=== PATIENT | male | born 1975 | race Caucasian/White ===

== ENCOUNTER 2016-05-26 15:25 | Inpatient (IN) | payer OTHER, MEDICARE ==
[~2016-05-26] VITALS: Ht 170.2 cm; Wt 104.9 kg
[~2016-05-26 15:25] MED LIST: ADDERALL 20 MG20 MG PO; ADDERALL20 MG PO; ALPRAZOLAM2 M2 PO; ALPRAZOLAM2 MG PO; AMOXICILLIN500 M3 PO; BACTRIM DS TAB1 EACH PO; CHLORPROMAZINE50 M2 PO; CYMBALTA 30 MG30 MG PO; DEXTROAMP-AMPHE20 MG PO; GABAPENTIN400 M2 PO; METHADONE10 MG/5 M2 PO; MOBIC15 M1 PO; NEXIUM40 M1 PO; QUETIAPINE FUM100 M1 PO; QUETIAPINE FUMA50 M1 PO; SEROQUEL XR150 M1 PO; SEROQUEL XR150 MG PO; SERTRALINE HCL100 MG PO; VISTARIL25 M1 PO; XANAX0.25 M1 PO; XANAX1 M1 PO; XANAX2 MG PO; ZOFRAN4 M2 PO; ZOLOFT 100 MG100 MG PO; ZOLOFT100 M1 PO; ZOLOFT100 MG PO
--- NOTE | 2016-05-26 15:30 | NUR ---
PT BIBA FOR +SI, STATES HE "NEEDS TO BE SAFE". PT TEARFUL DURING INTERVIEW. PT DENIES HI. PT REPORTS RECENT D/C FROM [facility] AND THAT HE HAS BEEN ON THE SAME MEDS FOR 5 YEARS.
--- NOTE | 2016-05-26 15:31 | NUR ---
SECURITY AT BEDSIDE FOR WANDING, PT CHANGED INTO BLUE SCRUBS.
--- NOTE | 2016-05-26 15:42 | NUR ---
PT'S FRIEND - CATRACHITO JAIN - [phone]
--- NOTE | 2016-05-26 15:58 | ED PSY CRISIS COLLATERAL NOTE ---
Collateral Note Collateral Note Family/Inform/Valentine Contacts: Spoke with Belen from [facility], who indicated that they were sending him to hospital as he had expressed suicidal ideation and stated that he wanted to go out and use. Patient appears to be very impaired at present, although tox screen has not been done yet. Patient had been in-patient at [facility] one month ago, and then was at [facility]. Patient stated to Dr Shearer, when interviewed, that "I just want to be somewhere safe, because I'm afraid of what I might do". According to Belen at [facility], patient verbalized multiple suicide plans. He is extremely upset that his has been cheating, and he caught her with some alysia in their bed. Meanwhile DCF is involved, and the 2 children who are ages 5 and 9, are staying with the grandmother at this time. Patient reports he is on list for [facility]. Patient has not had very much contact with [facility] over past few years, so they have no current information on patient with regard to treatment, other than being aware of his hospitalizations. He is on a longterm diversion program. Belen reports that they saw him as high risk, and sent him on PEER to [facility].
--- NOTE | 2016-05-26 16:04 | ED PSYCHIATRIC COMPLAINT ---
See Addendum History of Present Illness General Chief Complaint: Psychiatric Related Complaint Stated Complaint: +SI Source: patient, old records, EMS Exam Limitations: no limitations Vital Signs & Intake/Output Vital Signs & Intake/Output Vital Signs Date Time Temp Pulse Resp B/P Pulse O2 O2 Flow FiO2 Ox Delivery Rate 05/28 0616 96.5 70 18 114/73 92 Room Air 05/28 0320 96.3 75 16 103/76 96 05/28 0114 97.3 79 18 112/69 96 05/27 2259 96.1 79 20 104/60 95 Room Air 05/27 2012 96.3 69 16 112/60 96 Room Air 05/27 1833 96.7 46 16 120/75 97 Room Air 05/27 1559 98.4 61 16 115/56 94 Room Air 05/27 1333 97.8 60 126/81 96 05/27 0821 98.5 40 128/70 100 Allergies Coded Allergies: haloperidol (From HALDOL) (Mild, HIVES 07/10/15) shellfish derived (Mild, HIVES - SEAFOOD HIVES 07/21/15) latex (03/24/16) UPON ADMISSION 03/22/16, PT SAID HE HAD LATEX ALLERGY. TODAY PT SAID "I DON'T KNOW. MAYBE." Triage Nurses Notes Reviewed? yes Onset: Abrupt Duration: day(s): (1) Timing: single episode today Severity: severe Associated Symptoms: anxiety, suicidal ideation HPI: This is a 41-year-old male with history of polysubstance abuse who arrives to the ER for chief complaint of suicidal ideation. He states while he was in [place] receiving treatment for suicidal ideation that his was unfaithful to him and lost care of their kids to [facility]. He states that he has tried multiple times in the past before and wants to do so again. After finding this out he used heroin and cocaine last night. States that he wants to . Recent treatment at [facility] and previously at [facility] all within the past 1 month. (JOSE ENRIQUE JONES,MASHA) Reconcile Medications Alprazolam 2 MG TABLET 1 TAB PO TID ANXIETY (Reported) Alprazolam 0.25 MG TABLET 1 TAB PO TIDPRN ANXIETY (Reported) Chlorpromazine HCl 50 MG TABLET 1 CAP PO BID MENTAL HEALTH (Reported) Dextroamphetamine/Amphetamine (Dextroamp-Amphetamin 20 MG Tab) 20 MG TABLET 1 TAB PO BID MENTAL HEALTH (Reported) Esomeprazole (Nexium) 40 MG CAPSULE.DR 1 CAP PO DAILY GI (Reported) Gabapentin 400 MG CAPSULE 1 CAP PO TID MENTAL HEALTH (Reported) Hydroxyzine Pamoate (Vistaril) 25 MG CAPSULE 1 CAP PO BID ANXIETY (Reported) Hydroxyzine Pamoate (Vistaril) 25 MG CAPSULE 2 CAP PO QPM ANXIETY (Reported) Methadone HCl 10 MG/5 ML SOLUTION 100 MG PO DAILY MENTAL HEALTH (Reported) Quetiapine Fumarate 100 MG TABLET 1 TAB PO BID MENTAL HEALTH (Reported) Quetiapine Fumarate (Seroquel XR) 150 MG TAB.ER.24H 1 TAB PO QPM MENTAL HEALTH (Reported) Sertraline HCl 100 MG TABLET 1.5 TAB PO DAILY MENTAL HEALTH (Reported) (HENRY JONES,RIVAS Veronica) Past History Medical History Any Pertinent Medical History? 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 No (JOSE ENRIQUE JONES,MASHA) Review of Systems Review of Systems Constitutional: Denies: chills, fever. EENTM: Reports: no symptoms. Respiratory: Denies: cough, short of breath, sputum production. Cardiovascular: Denies: chest pain. GI: Denies: abdominal pain. Genitourinary: Reports: no symptoms. Musculoskeletal: Reports: no symptoms. Skin: Reports: no symptoms. Neurological/Psychological: Reports: anxiety, depressed. Hematologic/Endocrine: Denies: bruising, bleeding, polyuria, polydipsia. Immunologic/Allergic: Denies: splenectomy. All Other Systems: Reviewed and Negative (JOSE ENRIQUE JONES,MASHA) Physical Exam Physical Exam General Appearance: well developed/nourished, alert, awake, mild distress Head: atraumatic Eyes: Bilateral: PERRL, EOMI. Ears, Nose, Throat: normal pharynx, normal ENT inspection, hearing grossly normal Neck: normal inspection, supple Respiratory: normal breath sounds Cardiovascular: regular rate/rhythm Gastrointestinal: soft, non-tender Extremities: normal range of motion Neurological/Psychiatric: awake, alert, anxious, depressed affect Appearance/Memory/Insight: disheveled, impaired insight Behavoir/Eye Contact/Speech: avoids eye contact, cooperative, decreased rate of speech Thoughts/Hallucinations: no apparent hallucination Skin: intact, normal color, warm/dry SAD PERSONS SAD PERSONS Response Value Male Sex? yes 1 Depression/Hopelessness? yes 2 Previous Attempts/Psych Care yes 1 Excessive Ethanol/Drug Use? yes 1 Rational Thinking Loss? yes 2 Single//? yes 1 Organized/Serious Attempt yes 2 Social Support? has no support 1 Stated Future Intent? yes 2 Total 13 SAD PERSONS Done? yes (JOSE ENRIQUE JONES,MASHA) Progress Differential Diagnosis: DEPRESSION, ANXIETY, SUICIDAL IDEATION, POLYSUBSTANCE ABUSE Plan of Care: Orders Procedure Date/time Status Regular Diet 05/28 B Active Continuous Observation Monitor 05/28 0800 Active Continuous Observation Monitor 05/28 0400 Active Continuous Observation Monitor 05/28 0000 Active Continuous Observation Monitor 05/27 1609 Active Continuous Observation Monitor 05/27 1230 Active EKG 05/27 0844 Active Add-on Test (ER Only) 05/27 0841 Active Continuous Observation Monitor 05/27 0700 Active TROPONIN LEVEL 05/26 1625 Complete MAGNESIUM 05/26 1625 Complete Sitter order, crisis consult, check labs, alcohol and urine toxicology. (JOSE ENRIQUE JONES,MASHA) Hand-Off Endorsed To: RIVAS FIGUEROA MD Endorsed Time: 192 (MASHA QUISPE MD) Hand-Off Endorsed To: DUGLAS TABARES MD Endorsed Time: 07 Pending: consult (RIVAS FIGUEROA MD) Diagnostic Imaging: Discussed w/RAD: Ultrasound. Radiology Impression: PATIENT: ANEL CRUZ PRESENT AGE: 41 PATIENT ACCOUNT NO: [id number] : 75 LOCATION: [facility] ORDERING PHYSICIAN: DUGLAS TABARES MD SERVICE DATE: 05/27/16-1021 EXAM TYPE: CARD - ECHOCARDIOGRAM ANEL CRUZ Age: 41 : 1975 Gender: M Exam Date: 05/27/2016 15:22 Exam Location: ER Ht (in): 67 Wt (lb): 246 BSA: 2.35 BP: 126 / 81 Ordering Physician: DUGLAS TABARES MD Referring Physician: DUGLAS TABARES MD Technologist: Obdulia Dennis RDCS Room Number: ER#[id number] Indications: ARRHYTHMIAS Rhythm: Sinus Technical Quality: Good FINDINGS Left Ventricle Normal size left ventricle. Mild to moderate concentric left ventricular hypertrophy. Normal left ventricular ejection fraction visually estimated at >65%. No obvious regional wall motion abnormalities. Abnormal relaxation filling pattern of the left ventricle for age (stage 1 diastolic dysfunction). Right Ventricle The right ventricle is normal in size and function. Right Atrium The right atrium is normal in size. Left Atrium The left atrium is normal in size. The interatrial septum is intact. Mitral Valve The mitral valve is normal in structure and function. There is mild mitral regurgitation. Aortic Valve Structurally normal aortic valve without significant sclerosis or stenosis. There is no aortic regurgitation. Tricuspid Valve The tricuspid valve is normal in structure and function. There is trace tricuspid regurgitation. Pulmonary artery systolic pressure is normal. Pulmonic Valve Structurally normal pulmonic valve. There is trace pulmonic regurgitation. Pericardium Normal pericardium without effusion. No pleural effusion. Great Vessels Normal aortic root dimension. The aortic arch and great vessels are well seen and are normal. CONCLUSIONS Mild to moderate concentric left ventricular hypertrophy. Normal left ventricular ejection fraction visually estimated at > 65%. Abnormal relaxation filling pattern of the left ventricle for age (stage 1 diastolic dysfunction). The left atrium is normal in size. No significant valve abnormalities. Physiologic valvular regurgitation. No significant change since the prior study of. 10/30/2015 Greyson Mccall M.D. (Electronically Signed) Final Date: 27 May 2016 18:25 MEASUREMENTS (Male / Female) Normal Values 2D ECHO LV Diastolic Diameter PLAX 4.2 cm 4.2 - 5.9 / 3.9 - 5.3 cm LV Systolic Diameter PLAX 2.5 cm 2.1 - 4.0 cm LV Fractional Shortening PLAX 40.5 % 25 - 46 % LV Ejection Fraction 2D Teich 71.6 % IVS Diastolic Thickness 1.3 cm LVPW Diastolic Thickness 1.3 cm LV Relative Wall Thickness 0.6 RV Internal Dim ED PLAX 3.1 cm 1.9 - 3.8 cm LVOT Diameter 2.2 cm Aortic Root Diameter 3.1 cm LA Systolic Diameter LX 3.4 cm 3.0 - 4.0 / 2.7 - 3.8 cm LA Volume 39.0 cm 18 - 58 / 22 - 52 cm Ascending Aorta Diameter 3.2 cm DOPPLER AV Peak Velocity 169.0 cm/s AV Peak Gradient 11.4 mmHg AV Mean Velocity 120.0 cm/ s AV Mean Gradient 7.0 mmHg AV Velocity Time Integral 34.3 cm LVOT Peak Velocity 146.0 cm/s LVOT Peak Gradient 8.5 mmHg LVOT Mean Velocity 106.0 cm/s LVOT Mean Gradient 5.0 mmHg LVOT Velocity Time Integral 32.7 cm LVOT Stroke Volume 124.3 cm AV Area Cont Eq vti 3.6 cm AV Area Cont Eq pk 3.3 cm MV Peak Velocity 90.9 cm/s MV Peak Gradient 3.3 mmHg MV Mean Velocity 54.3 cm/s MV Mean Gradient 1.0 mmHg Mitral E Point Velocity 73.1 cm/s Mitral A Point Velocity 74.0 cm/s Mitral E to A Ratio 1.0 MV PHT Velocity 96.4 cm/s MV Deceleration Hayes 295.0 cm/ s MV Pressure Half Time 98.0 ms MV Area PHT 2.2 cm MV Deceleration Time 343.0 ms TR Peak Velocity 135.0 cm/s TR Peak Gradient 7.3 mmHg Right Atrial Pressure 5.0 mmHg Pulmonary Artery Systolic Pressu 12.3 mmHg Right Ventricular Systolic Press 12.3 mmHg PV Peak Velocity 128.0 cm/s PV Peak Gradient 6.6 mmHg PV Mean Velocity 85.3 cm/s PV Mean Gradient 3.0 mmHg PV Velocity Time Integral 29.7 cm LV E' Lateral Velocity 12.2 cm/s Mitral E to LV E' Lateral Ratio 6.0 LV E' Septal Velocity 6.3 cm/s Mitral E to LV E' Septal Ratio 11.5 DICTATED BY: GREYSON MCCALL MD, V. 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 <Electronically signed in Other Vendor System> SIGNED BY: GREYSON MCCALL MD, V. 05/27/161825 Initial ED EKG: NSR, rate (65), INTERMITTENT VENT BIGEMINY Comments: 05/27/2016 8:41:59 AM patient signed out to me by Dr. Figueroa at shift assembler for puller over machine. Patient presents for psychiatric evaluation secondary to suicide ideation and polysubstance use. He was just moved into room 12 because of the concern of a low heart rate (in the 40s). I have just reevaluated Anel and he states he is feeling much better after a dose of methadone and Xanax. His heart rate is in the mid 60s with frequent PVCs. I have just discussed his case with Dr. Adams recommends checking a magnesium level and a troponin. If either of these is abnormal echocardiogram would be appropriate. 05/28/2016 7:16:09 AM patient signed out to me by Dr. Mandujano. (RAYSHAWN JONES,DUGLAS Montalvo) Hand-Off Endorsed To: DUGLAS TABARES MD Endorsed Time: 0700 Pending: other (bed search) (JEROME MANDUJANO MD) Departure Departure Disposition: STILL A PATIENT Condition: Stable Referrals: PATIENT HAS NO PRIMARY CARE DR (PCP/Family) Departure Forms: Customer Survey General Discharge Information (JOSE ENRIQUE JONES,MASHA) Departure Clinical Impression Primary Impression: Polysubstance abuse Secondary Impressions: Major depression Qualifiers: Major depression recurrence: recurrent Active/Remission status: currently active Major depression episode severity: unspecified Qualified Code: F33.9 - Major depressive disorder, recurrent, unspecified Suicidal ideation (JEROME MANDUJANO MD)
--- NOTE | 2016-05-26 16:35 | NUR ---
LABS DRAWN AND SENT BY THIS [facility] ([facility]) URINE SPECIMEN OBTAINED AND TRIO SENT TO LAB
[2016-05-26 17:35] LABS: ABSOLUTE BASOPHIL COUNT 0 /CUMM (0.0-0.2); ABSOLUTE EOSINOPHIL COUNT 0 /CUMM (0.0-0.7); ABSOLUTE GRANULOCYTE CT 4.3 /CUMM (1.4-6.5); ABSOLUTE LYMPH COUNT 1.4 /CUMM (1.2-3.4); ABSOLUTE MONOCYTE COUNT 0.4 /CUMM (0.10-0.60); BASOPHIL % 0.4 % (0.0-2.0); EOSINOPHIL % 0.5 % (0-5); GRANULOCYTE % 70.2 % (42.2-75.2); HEMATOCRIT 42.5 % (42-52); MEAN CORPUSCULAR HGB 30.1 PG (27.0-31.0); MEAN CORPUSCULAR HGB CONC 33.6 G/DL (33.0-37.0); MEAN CORPUSCULAR VOLUME 89.7 FL (80.0-94.0); MEAN PLATELET VOLUME 9.3 FL (7.4-10.4); PLATELET COUNT 229 /CUMM (130-400); RBC DISTRIBUTION WIDTH 13.2 % (11.5-14.5); RED BLOOD CELL CT 4.74 /CUMM (4.70-6.10); WHITE BLOOD CELL COUNT 6.2 /CUMM (4.8-10.8)
--- NOTE | 2016-05-26 17:40 | NUR ---
PT LYING ON BED IN DARK. PT TEARFUL ON APPROACH.
--- NOTE | 2016-05-26 18:41 | NUR ---
PT REQUESTING XANAX FOR ANXIETY. PT LYING ON BED IN DARK, TEARFUL UPON TALKING. SITTER AT DOOR
--- NOTE | 2016-05-26 20:30 | NUR ---
PT REPORTS ANXIETY AND REQUESTING XANAX AT THIS TIME. PT SLIGHTLY AGITATED AND STATED THAT "NO DOCTOR HAS SEEN HIM YET". REASSURED PT THAT HE WAS SEEN BY MD. VELIZ AT DOOR
--- NOTE | 2016-05-26 22:04 | NUR ---
Pt presenting as agitated. Positive Tox Screen. Crisis will evaluate pt in morning when substance levels are less elevated.
[2016-05-26] MEDS ORDERED: SEROQUEL XR150 M1 PO (22:29)
[2016-05-26] MEDS ORDERED: ALPRAZOLAM0.25 M1 PO (22:29)
--- NOTE | 2016-05-26 22:45 | NUR ---
PT SLEEPING IN DARK ROOM. RESPIRATIONS EVEN AND UNLABORED. SITTER AT DOOR FOR SAFETY
--- NOTE | 2016-05-27 00:22 | NUR ---
PT SLEEPING AT THIS TIME, BILATERAL CHEST RISE AND FALL NOTED, NO DISTRESS. SITTER AT BEDSIDE FOR SAFETY.
--- NOTE | 2016-05-27 00:26 | NUR ---
PT SCORED 0 ON CIWA, PER PT "HE WONT GET BAD UNTIL THE MORNING"
--- NOTE | 2016-05-27 00:28 | NUR ---
PER PT IN NOTE FORM, "IF A SHAINA CRUZ CALLS FOR ROOM 15, PT SAYS SHE WILL SAY SHE IS HIS , PT DOES NOT WANT HER TO KNOW HE IS HERE AND HE DOES NOT WANT TO SPEAK TO HER"
--- NOTE | 2016-05-27 02:30 | NUR ---
ASSUMED CARE FROM FLORA LOPEZ
--- NOTE | 2016-05-27 02:48 | NUR ---
PT SLEEPING. RESP UNLABORED. NO APPRENT DISTRESS. SITTER AT BEDSIDE
--- NOTE | 2016-05-27 04:15 | NUR ---
PT FEELING ANXIOUS. PT STATES THAT HE CANT TAKE TH ANXIETY ANYMORE. MD FIGUEROA AWARE. PT MEDICATED WITH ATARAX PER ORDER.
--- NOTE | 2016-05-27 07:16 | NUR ---
ASSUMED CARE OF PT WHO IS AWAKE WITH BREAKFAST TRAY AT BEDSIDE. PT STATES "I CAN'T EAT BECAUSE I'M IN FULL WITHDRAWL"
--- NOTE | 2016-05-27 07:19 | NUR ---
SITTER REMAINS AT BEDSIDE. WILL CTM
--- NOTE | 2016-05-27 07:35 | NUR ---
DR TABARES MADE AWARE OF PT C/O WITHDRAWL
--- NOTE | 2016-05-27 07:52 | NUR ---
PT MEDICATED WITH 60 MG METHADONE PO AND 1 MG XANAX PO
--- NOTE | 2016-05-27 08:15 | NUR ---
PT MOVED TO RM 12, HR FOUND TO BE 40. DR TABARES AND CHARGE NURSE CHRISTIANO VALDOVINOS.
--- NOTE | 2016-05-27 08:16 | NUR ---
MOVED PT TO ROOM 12 VIA WHEELCHAIR, "PT BECAME VERY AGITATED, STATED I WAS LIDIA I WAS A WOMAN, AND THAT I BETTER CALL SECURITY"
--- NOTE | 2016-05-27 08:21 | NUR ---
DR TABARES AT BEDSIDE
--- NOTE | 2016-05-27 08:34 | NUR ---
PT STATES HE WANTS TO GO HOME AND BACK TO HIS WORSHIP. PT AWARE THAT HE IS WAITING FOR CRISIS EVALUATION
--- NOTE | 2016-05-27 08:49 | NUR ---
CRISIS AT BEDSIDE FOR EVALUATION
--- NOTE | 2016-05-27 09:21 | ED PSYCH CRISIS CONSULTATION ---
See Addendum Crisis Consult Basic Assessment Date of Consult: 05/27/16 Insurance Authorization: Insurance #1: Insurance name: MEDICARE A Phone number: Policy number: [id number] Group number: Authorization number: ED Provider: Patient's ED Provider: MASHA QUISPE MD Primary Care Physician: Patient's PCP: PATIENT HAS NO PRIMARY CARE DR PCP's Phone Number: Current Psychiatrist: The patient currently goes to [facility], however states he has not seen . Chief Complaint: Psychiatric Related Complaint Patient's Quote: " All the things that used to be, are all different now." Present Illness: The patient is a 41 year old, male, presenting to the ED, on an [facility] Emergency transportation Certificate, after expressing suicidal ideations with multiple plans. The patient presents as alert, oriented and disheveled with labile mood and became tearful, multiple times during the evaluation. The patient has a long history of mental health and substance abuse issues. The patient is well known to [facility] and has had multiple admissions to [facility]. The patient reports that he was recently discharged from inpatient at [facility] and came home to find that DCF had taken his children. The children will be staying with his mother and he is very angry at his for losing their children. He notes that he was having homicidal thoughts to harm her, however notes that he would "never, ever," act on those thoughts. He states that she has been spending time with "a wealthy man in [place]," and he plans to file for divorce. He states that he was so upset by this news, that he became suicidal, noting that he has multiple plans. He denies any current hallucinations, however per [facility] Certificate he does have a history of auditory hallucinations. He has been on disability for about 15 years and states that he has plenty of places that he can stay. He is currently in treatment with [facility] in [place] ([phone]), receiving Methadone Maintenance (60mg- confirmed via phone this AM). He does report also abusing alcohol, Cocaine and Heroin. He has not been in any consistent outpatient mental health treatment and was waiting to see the psychiatrist at [facility]. The patient reports his symptoms as follows; depression, anxiety, feeling helpless, feeing hopeless, difficultly sleeping, decreased appetite, decreased motivation and decreased concentration. He continues to feel suicidal , however states that he feels safe while at [facility]. He would like to be admitted to [facility]. Patient's Address: [address] [place] [address] [place] [address] Other Phone Number: Who Do You Live With? Patient/Self Family/Informants Interviewed: Collateral obtained from [facility], please see seperate collateral note. Allergies - Coded Allergies: haloperidol (From HALDOL) (Mild, HIVES 07/10/15) shellfish derived (Mild, HIVES - SEAFOOD HIVES 07/21/15) latex (03/24/16) UPON ADMISSION 03/22/16, PT SAID HE HAD LATEX ALLERGY. TODAY PT SAID "I DON'T KNOW. MAYBE." Current Medications - Scheduled Medications Alprazolam 2 MG TABLET 1 TAB PO TID ANXIETY (Reported) Entered as Reported by NADIYA APODACA on 11/06/15 1254 Alprazolam 0.25 MG TABLET 1 TAB PO TIDPRN ANXIETY #28 (Reported) Entered as Reported by STANTON AGUIRRE on 05/26/16 2229 Chlorpromazine HCl 50 MG TABLET 1 CAP PO BID MENTAL HEALTH #60 (Reported) Entered as Reported by KETAN SHAH on 03/22/16 0825 Dextroamphetamine/Amphetamine (Dextroamp-Amphetamin 20 MG Tab) 20 MG TABLET 1 TAB PO BID MENTAL HEALTH #56 (Reported) Entered as Reported by KETAN SHAH on 12/30/15 1119 Esomeprazole (Nexium) 40 MG CAPSULE.DR 1 CAP PO DAILY GI #28 (Reported) Entered as Reported by KETAN SHAH on 12/30/15 1119 Gabapentin 400 MG CAPSULE 1 CAP PO TID MENTAL HEALTH #90 (Reported) Entered as Reported by KETAN SHAH on 03/22/16 0827 Hydroxyzine Pamoate (Vistaril) 25 MG CAPSULE 1 CAP PO BID ANXIETY (Reported) Entered as Reported by NORY MENDOZA on 04/01/16 1729 Hydroxyzine Pamoate (Vistaril) 25 MG CAPSULE 2 CAP PO QPM ANXIETY (Reported) Entered as Reported by NORY MENDOZA on 04/01/16 1729 Methadone HCl 10 MG/5 ML SOLUTION 100 MG PO DAILY MENTAL HEALTH (Reported) Entered as Reported by NORY MENDOZA on 07/21/15 1553 Quetiapine Fumarate 100 MG TABLET 1 TAB PO BID MENTAL HEALTH #28 (Reported) Entered as Reported by NORY MENDOZA on 04/01/16 1718 Quetiapine Fumarate (Seroquel XR) 150 MG TAB.ER.24H 1 TAB PO QPM MENTAL HEALTH #28 (Reported) Entered as Reported by STANTON AGUIRRE on 05/26/16 2229 Sertraline HCl 100 MG TABLET 1.5 TAB PO DAILY MENTAL HEALTH #28 (Reported) Entered as Reported by NORY MENDOZA on 04/01/16 1721 Laboratory Results: Laboratory Tests 05/26/16 1625: Serum Alcohol < 10.0 05/26/16 1625: Anion Gap 16, Estimated GFR > 60, BUN/Creatinine Ratio 17.1, Glucose 110 H, Calcium 9.6, Magnesium 1.9, Total Bilirubin 0.9, AST 35, ALT 42, Alkaline Phosphatase 71, Troponin I < 0.01, Total Protein 8.7 H, Albumin 4.8, Globulin 3.9, Albumin/Globulin Ratio 1.2, CBC w Diff NO MAN DIFF REQ, RBC 4.74, MCV 89.7, MCH 30.1, RDW 13.2, MPV 9.3, Gran % 70.2, Lymphocytes % 22.8, Monocytes % 6.1, Eosinophils % 0.5, Basophils % 0.4, Absolute Granulocytes 4.3, Absolute Lymphocytes 1.4, Absolute Monocytes 0.4, Absolute Eosinophils 0, Absolute Basophils 0, PUBS MCHC 33.6, Urine Opiates Screen > 4000.00 H, Methadone Screen > 735 H, Barbiturate Screen < 60, Ur Phencyclidine Scrn < 6.00, Amphetamines Screen 285, U Benzodiazepines Scrn > 800 H, Urine Cocaine Screen > 1000 H, Urine Cannabis Screen < 5.00 Past History Past Medical History Neurological: NONE EENT: NONE Cardiovascular: NONE Respiratory: NONE Gastrointestinal: GERD Hepatic: hepatitis C Renal: NONE Musculoskeletal: NONE Psychiatric: alcohol dependence, anxiety, bipolar disease, depression, IV drug abuse, opioid dependence, substance abuse Endocrine: NONE Blood Disorders: NONE Cancer(s): NONE 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 Physical Limitations (Interventions): None identified. Psychiatric Treatment History Psych Treatment Psychiatric Treatment Yes Inpatient Treatment Yes Outpatient Treatment Yes Location of Treatment [facility] (10+ times), [facility]- and multiple others Reason for Treatment Depression, +SI and polysubstance abuse. Dates of Treatment Recently discharged from [facility] in May 2016 and currently at [facility] Response to Treatment The patient has not been able to maintain stability for long periods of time. Diagnosis by History: Unspecified Depression, R/O Unspecified Bipolar D/O Anxiolytic Use D/O Stimulant Use D/O Opioid Use D/O Alcohol Use D/O Substance Use/Abuse History Drug Use/Abuse 1 Substances Used/Abused Yes Substance Used/Abused Cocaine First Use 16 years old Last Used Unclear- the patient does not remember using it. How much used/taken The patient states that he does not know How often Pt. reports that he does not actively use Cocaine, "it may be in Heroin." For how long Unknown Route of use unclear Drug Use/Abuse 2 Substances Used/Abused Yes Substance Used/Abused Heroin First Use 18 years old Last Used 2 days ago How much used/taken "As much as I can." Noting that he may use 10 bags at a time. How often Unclear For how long Unclear Route of use Unclear Drug Use/Abuse 3 Substances Used/Abused Yes Substance Used/Abused Alcohol First Use 7 years old Last Used 2 days ago How much used/taken "As much as possible." How often The patient reports that he has been using more lately. For how long Unclear Route of use Oral Substance Abuse Treatment Substance Abuse Treatment Past Substance Abuse [place] Yes Inpatient Treatment Yes Outpatient Treatment Yes Location of Treatment [facility], [facility], [facility], [facility] and other places. Reason for Treatment Polysusbtance abuse Dates of Treatment Current with [facility] for Methadone Maintenance Response to Treatment The patient has not been able to maintain sobriety. He does report that he is not abusing Methadone or his Benzodiazepines at this time. Comments: Per records there was a question as to whether or not he was abusing Benzodiazepines in the past. Current Mental Status Mental Status Orientation: Person, Place, Situation Affect: Anxious, Hopeless, Labile Speech: WNL Neuro-vegetative: Anhedonia, Appetite Decreased, Energy Decreased, Helpless, Sleep Disturbance, Decreased concentration Appearance Appearance- Dress/Hygiene: The patient was sitting in bed, wearing hospital attire, disheveled and tearful at times Behaviors Thought Process: WNL Thought Content: The patient denies any current hallucinations, however per [facility] Emergency Certificate the patient does have a history of having hallucinations. Memory: WNL Insight: Fair SI/HI Risk Assessment Past Suicidal Ideation/Attempts Yes Current Suicidal Ideation/Att Yes Past Homicidal Ideation/Att: No Current Homicidal Ideation/Attempts Yes Degree of Intent: The patient reports that he is currently feeling suicidal, noting that he has multiple plans of how he would do it., The patient denies any history of homicidal ideations, however notes that he was very upset with his about DCF taking their children. He did note that he was having thoughts to hurt her, however states, " I would never, ever act on them." He states that he plans to get a divorce from her. Danger To: Others, Self Gravely Disabled: Poor Impulse Control, Poor Judgment Risk Factors: high anxiety/distress, history of suicide atmpts, SA/MH hospitalized, substance abuse, poor impulse control, male, limited support Lethality Ratin PTSD Checklist PTSD Score: PTSD Score: Response Value Disturbing memories,thoughts,images of stressful experience? Extremely 5 Disturbing dreams of stressful experience from past? Extremely 5 Suddenly acting/feeling as if reliving stressful experience? Extremely 5 Unpleasant feeling when reminded of stressful experience? Extremely 5 Physical reactions when reminded of stressful experience? Extremely 5 Avoid thinking/talking of stressful exp. to avoid reactions? Extremely 5 Avoid activities/situations that remind of stressful exp.? Extremely 5 Trouble remembering important parts of stressful experience? Extremely 5 Loss of interest in things that you used to enjoy? Extremely 5 Feeling as if your future will somehow be cut short? Moderately 3 Trouble falling or staying asleep? Extremely 5 Feeling irritable or having angry outbursts? Not at all 1 Having difficulty concentrating? Extremely 5 Being super alert or watchful on guard? Extremely 5 Feeling jumpy or easily startled? Extremely 5 Total 69 ED Management Sitter: Yes Restraints: No DSM5/PS Stressors/Medical Prob Diagnosis' (DSM 5, Stressors, Medical): F32.9 Unspecified Depressive Disorder, F10.20 Alcohol Use Disorder, F11.20 Opioid Use Disorder, F14.20 Stimulant Use Disorder, Cocaine type. Medical: Pt. denies any medical issues Stressors: Marital Issues, children recently removed by DCF, Chronic mental health and substance abuse issues. Current GAF: 25 Comments: N/A Departure Disposition Psych Medical Clearance Date: 05/27/16 Medically Cleared at: 0700 Time Started: 0700 Time Ended: 0800 Psychiatrist Consulted: Yan Hill MD Date Disposition Established: 05/27/16 Time Disposition Established: 1099 Plan for Disposition - Modality: Bed Search Facility: To be determined Contact: N/A Telephone: N/A Rationale for Disposition: The patient presents with increased symptoms of depression, suicidal and homicidal ideations. He presents as anxious, irritable and requesting to be admitted to [facility]. The patient has been abusing multiple substances and has multiple stressors at this time. The case was discussed with Dr. Hill and he finds the patient to be an acute risk to self and in need of an inpatient hospitalization at this time. There are currently no beds available on [facility] and therefore a bed search will be started. Type of IP Admission: PEC (PEC if transferred) Additional Instructions: N/A Referrals PATIENT HAS NO PRIMARY CARE DR (PCP/Family)
--- NOTE | 2016-05-27 10:15 | NUR ---
PT'S AD TRAFFICKER IS AT BEDSIDE
--- NOTE | 2016-05-27 10:59 | NUR ---
PT REQUESTING TUMS
--- NOTE | 2016-05-27 11:36 | NUR ---
PT STATES HE NEEDS HIS DAILY MEDS. DR TABARES MADE AWARE
--- NOTE | 2016-05-27 13:13 | NUR ---
PT MEDICATED PER EMAR.
--- NOTE | 2016-05-27 14:04 | NUR ---
The patient was evaluated by Crisis and it was determined that he requires an inpatient psychiatric admission. SW spoke to Dr. Ross and he notes that the patient requires further medical clearance at this time. There are no beds available on [facility] and therefore, once the patient is medically cleared a bed search will be started.
--- NOTE | 2016-05-27 15:08 | NUR ---
CRISIS AT BEDSIDE.
--- NOTE | 2016-05-27 15:19 | NUR ---
ECHO AT BEDSIDE.
--- NOTE | 2016-05-27 16:13 | NUR ---
PT MEDICATED WITH 1MG XANAX PO.
--- NOTE | 2016-05-27 18:22 | NUR ---
DIETARY CALLED FOR FOOD TRAY.
--- NOTE | 2016-05-27 18:26 | ECHOCARDIOGRAM REPORT ---
ANEL CRUZ Age: 41 : 1975 Gender: M Exam Date: 05/27/2016 15:22 Exam Location: ER Ht (in): 67 Wt (lb): 246 BSA: 2.35 BP: 126 / 81 Ordering Physician: DUGLAS TABARES MD Referring Physician: DUGLAS TABARES MD Technologist: Obdulia Dennis RDCS Room Number: ER#12 Indications: ARRHYTHMIAS Rhythm: Sinus Technical Quality: Good FINDINGS Left Ventricle Normal size left ventricle. Mild to moderate concentric left ventricular hypertrophy. Normal left ventricular ejection fraction visually estimated at >65%. No obvious regional wall motion abnormalities. Abnormal relaxation filling pattern of the left ventricle for age (stage 1 diastolic dysfunction). Right Ventricle The right ventricle is normal in size and function. Right Atrium The right atrium is normal in size. Left Atrium The left atrium is normal in size. The interatrial septum is intact. Mitral Valve The mitral valve is normal in structure and function. There is mild mitral regurgitation. Aortic Valve Structurally normal aortic valve without significant sclerosis or stenosis. There is no aortic regurgitation. Tricuspid Valve The tricuspid valve is normal in structure and function. There is trace tricuspid regurgitation. Pulmonary artery systolic pressure is normal. Pulmonic Valve Structurally normal pulmonic valve. There is trace pulmonic regurgitation. Pericardium Normal pericardium without effusion. No pleural effusion. Great Vessels Normal aortic root dimension. The aortic arch and great vessels are well seen and are normal. CONCLUSIONS Mild to moderate concentric left ventricular hypertrophy. Normal left ventricular ejection fraction visually estimated at > 65%. Abnormal relaxation filling pattern of the left ventricle for age (stage 1 diastolic dysfunction). The left atrium is normal in size. No significant valve abnormalities. Physiologic valvular regurgitation. No significant change since the prior study of. 10/30/2015 Terrance Mccall M.D. (Electronically Signed) Final Date: 27 May 2016 18:25 MEASUREMENTS (Male / Female) Normal Values 2D ECHO LV Diastolic Diameter PLAX 4.2 cm 4.2 - 5.9 / 3.9 - 5.3 cm LV Systolic Diameter PLAX 2.5 cm 2.1 - 4.0 cm LV Fractional Shortening PLAX 40.5 % 25 - 46 % LV Ejection Fraction 2D Teich 71.6 % IVS Diastolic Thickness 1.3 cm LVPW Diastolic Thickness 1.3 cm LV Relative Wall Thickness 0.6 RV Internal Dim ED PLAX 3.1 cm 1.9 - 3.8 cm LVOT Diameter 2.2 cm Aortic Root Diameter 3.1 cm LA Systolic Diameter LX 3.4 cm 3.0 - 4.0 / 2.7 - 3.8 cm LA Volume 39.0 cm 18 - 58 / 22 - 52 cm Ascending Aorta Diameter 3.2 cm DOPPLER AV Peak Velocity 169.0 cm/s AV Peak Gradient 11.4 mmHg AV Mean Velocity 120.0 cm/s AV Mean Gradient 7.0 mmHg AV Velocity Time Integral 34.3 cm LVOT Peak Velocity 146.0 cm/s LVOT Peak Gradient 8.5 mmHg LVOT Mean Velocity 106.0 cm/s LVOT Mean Gradient 5.0 mmHg LVOT Velocity Time Integral 32.7 cm LVOT Stroke Volume 124.3 cm AV Area Cont Eq vti 3.6 cm AV Area Cont Eq pk 3.3 cm MV Peak Velocity 90.9 cm/s MV Peak Gradient 3.3 mmHg MV Mean Velocity 54.3 cm/s MV Mean Gradient 1.0 mmHg Mitral E Point Velocity 73.1 cm/s Mitral A Point Velocity 74.0 cm/s Mitral E to A Ratio 1.0 MV PHT Velocity 96.4 cm/s MV Deceleration Smith 295.0 cm/s MV Pressure Half Time 98.0 ms MV Area PHT 2.2 cm MV Deceleration Time 343.0 ms TR Peak Velocity 135.0 cm/s TR Peak Gradient 7.3 mmHg Right Atrial Pressure 5.0 mmHg Pulmonary Artery Systolic Pressu 12.3 mmHg Right Ventricular Systolic Press 12.3 mmHg PV Peak Velocity 128.0 cm/s PV Peak Gradient 6.6 mmHg PV Mean Velocity 85.3 cm/s PV Mean Gradient 3.0 mmHg PV Velocity Time Integral 29.7 cm LV E' Lateral Velocity 12.2 cm/s Mitral E to LV E' Lateral Ratio 6.0 LV E' Septal Velocity 6.3 cm/s Mitral E to LV E' Septal Ratio 11.5
--- NOTE | 2016-05-27 18:49 | NUR ---
FOOD TRAY DELIVERED.
--- NOTE | 2016-05-27 19:19 | NUR ---
REPORT GIVEN TO JESSICA VALDEZ.
--- NOTE | 2016-05-27 19:48 | NUR ---
ASSUMED CARE FROM JEROMY LOPEZ.
--- NOTE | 2016-05-27 19:49 | NUR ---
PT SLEEPING. EASILY AROUSED TO VERBAL STIMULTION. RESP UNLABORED. NSR ON THE MONITOR. NO APPARENT DISTRESS. SITTER AT BEDSIDE
--- NOTE | 2016-05-27 22:06 | NUR ---
Pt has been medically cleared. Pt informed by crisis that a bed search will resume.
[2016-05-28] VITALS (7 sets, daily range): BP systolic 85–124; BP diastolic 50–70
--- NOTE | 2016-05-28 01:16 | NUR ---
PT SLEEPING. RESP UNLABORED. SKIN WARM AND DRY. NO APPARENT DISTRESS. SITTER AT BEDSIDE/
--- NOTE | 2016-05-28 03:30 | NUR ---
PT APPEARS COMFORTBALE. RESP UNLABORED. NO APPARENT DISTESS. SITTER AT BEDSIDE
--- NOTE | 2016-05-28 06:14 | NUR ---
PT SLEEPING. RESP UNLABORED. NO APPARENT DISTRESS. SITTER AT BEDSIDE.
--- NOTE | 2016-05-28 06:48 | NUR ---
ASSUMED CARE AT THIS TIME , PT NOTED TO BE SLEEPING WITH REGULAR RESP RATE NOTED OF 16. OPENS EYES TO VERBAL STIMULI , OFFERS NO COMPLAINTS
--- NOTE | 2016-05-28 07:25 | NUR ---
PT REQUESTING HIS AM MEDS, PT AWARE THAT THEY ARE DUE AT 10 AM , PT UP TO BATHROOM AT THIS TIME, HR 76 ON PORTABLE O2 MONITOR
--- NOTE | 2016-05-28 07:50 | NUR ---
PT ALERT AND ORIENTED CALM AND COPERATIVE AT THIS TIME, MEDICATED WITH AM METHADONE 60 MG PO PER ORDER
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
--- NOTE | 2016-05-28 08:56 | NUR ---
PAULINE met with the patient for reassessment and discussed the case with Dr. Hill, who finds the patient to be an acute risk to self and in need of an inpatient hospitalization. There are pending discharges on [facility] and the patient will be admitted to the unit when a bed is available.
--- NOTE | 2016-05-28 09:28 | NUR ---
PHARMACY CALLED FOR MEDS
--- NOTE | 2016-05-28 09:47 | NUR ---
PT MEDICATED PER ORDER
--- NOTE | 2016-05-28 11:07 | NUR ---
PT CURRENTLY EATING LUNCH, APPEARS IN NAD. SITTER REMAINS AT [facility].
--- NOTE | 2016-05-28 12:01 | NUR ---
PT BEING ADMITTED TO [facility]
--- NOTE | 2016-05-28 12:12 | NUR ---
REPORT TO ANITA
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
--- NOTE | 2016-05-28 15:48 | History & Physical ---
General Information and HPI MD Statement: I have seen and personally examined ANEL CRUZ and documented this H&P. The patient is a 41 year old M who presented with a patient stated chief complaint of suicidal ideation Source of Information: patient Exam Limitations: no limitations History of Present Illness: 41-year-old male with the past medical history significant for anxiety, depression, alcohol use, suicidal ideation who presented with complaint of suicidal ideation. Patient has admitted to Inpatient Psychiatry in the past. He had recently in a residential facility and then he went home reportedly he found that DCF had taken the children and now they're living with his . He also had some homicidal thoughts but then again mentioned to the psychiatric provider that he would never act on those. He had many plans for the suicidal ideation that he had. He was also having some hallucinations. Upon mind reviewing patient was not very cooperative and did not answer most of the questions in detail. Just said yes or no to a lot of questions. He currently denies any aches or pains, he still feels very depressed. In the emergency room his EKG was abnormal but the follow-up echo showed stage I diastolic dysfunction. Allergies/Medications Allergies: Coded Allergies: haloperidol (From HALDOL) (Mild, HIVES 07/10/15) shellfish derived (Mild, HIVES - SEAFOOD HIVES 07/21/15) latex (03/24/16) UPON ADMISSION 03/22/16, PT SAID HE HAD LATEX ALLERGY. TODAY PT SAID "I DON'T KNOW. MAYBE." Home Med list Alprazolam 2 MG TABLET 1 TAB PO TID ANXIETY (Reported) Alprazolam 0.25 MG TABLET 1 TAB PO TIDPRN ANXIETY (Reported) Chlorpromazine HCl 50 MG TABLET 1 CAP PO BID MENTAL HEALTH (Reported) Dextroamphetamine/Amphetamine (Dextroamp-Amphetamin 20 MG Tab) 20 MG TABLET 1 TAB PO BID MENTAL HEALTH (Reported) Esomeprazole (Nexium) 40 MG CAPSULE.DR 1 CAP PO DAILY GI (Reported) Gabapentin 400 MG CAPSULE 1 CAP PO TID MENTAL HEALTH (Reported) Hydroxyzine Pamoate (Vistaril) 25 MG CAPSULE 1 CAP PO BID ANXIETY (Reported) Hydroxyzine Pamoate (Vistaril) 25 MG CAPSULE 2 CAP PO QPM ANXIETY (Reported) Methadone HCl 10 MG/5 ML SOLUTION 100 MG PO DAILY MENTAL HEALTH (Reported) Quetiapine Fumarate 100 MG TABLET 1 TAB PO BID MENTAL HEALTH (Reported) Quetiapine Fumarate (Seroquel XR) 150 MG TAB.ER.24H 1 TAB PO QPM MENTAL HEALTH (Reported) Sertraline HCl 100 MG TABLET 1.5 TAB PO DAILY MENTAL HEALTH (Reported) Past History Travel History Traveled to [place] past 21 day No Medical History Neurological: NONE EENT: NONE Cardiovascular: NONE Respiratory: NONE Gastrointestinal: GERD Hepatic: hepatitis C Renal: NONE Musculoskeletal: NONE Psychiatric: alcohol dependence, anxiety, bipolar disease, depression, IV drug abuse, opioid dependence, substance abuse Endocrine: NONE Blood Disorders: NONE Cancer(s): NONE VOCATIONAL NURSE/Reproductive: NONE ( ) History of MRSA: Yes History of VRE: No History of CDIFF: No Isolation History: Standard Surgical History Surgical History: non-contributory Past Family/Social History Family History Relations & Conditions if any Family history was reviewed; no changes noted. Psychosocial History Where do you live? Home Services at Home: None ETOH Use: denies use Functional Ability IADLs Independent: shopping, housework, food prep. Employment History Employment Disability Profession/Employer The patient states that he has not worked in 15 years. Review of Systems Review of Systems Constitutional: Reports: see HPI. EENTM: Reports: see HPI. Cardiovascular: Reports: see HPI. Respiratory: Reports: see HPI. GI: Reports: see HPI. Genitourinary: Reports: see HPI. Musculoskeletal: Reports: see HPI. Skin: Reports: see HPI. Neurological/Psychological: Reports: see HPI. Exam & Diagnostic Data Last 24 Hrs of Vital Signs/I&O Vital Signs Date Time Temp Pulse Resp B/P Pulse O2 O2 Flow FiO2 Ox Delivery Rate 05/28 1401 97.1 64 116/64 05/28 1206 96.9 72 16 114/68 95 Room Air 05/28 0936 94.5 54 18 90/53 94 Room Air 05/28 0616 96.5 70 18 114/73 92 Room Air 05/28 0320 96.3 75 16 103/76 96 05/28 0114 97.3 79 18 112/69 96 05/27 2259 96.1 79 20 104/60 95 Room Air 05/27 2012 96.3 69 16 112/60 96 Room Air 05/27 1833 96.7 46 16 120/75 97 Room Air 05/27 1559 98.4 61 16 115/56 94 Room Air Physical Exam General Appearance Alert, Oriented X3, No Acute Distress Skin some erythema eczema looking rash on face HEENT PERRLA Neck Supple Cardiovascular Regular Rate, Normal S1, Normal S2 Lungs Clear to Auscultation Abdomen Normal Bowel Sounds, Soft, No Tenderness Neurological Cranial Nerves II through XII: intact Extremities No Edema Last 24 Hrs of Labs/Goldy: Laboratory Tests 05/26 05/26 05/26 1625 1625 1537 Chemistry Sodium (137 - 145 mmol/L) 142 Potassium (3.5 - 5.1 mmol/L) 4.0 Chloride (98 - 107 mmol/L) 101 Carbon Dioxide (22 - 30 mmol/L) 25 Anion Gap (5 - 16) 16 BUN (9 - 20 mg/dL) 12 Creatinine (0.7 - 1.2 mg/dL) 0.7 Estimated GFR (>60 ml/min) > 60 BUN/Creatinine Ratio (7 - 25 %) 17.1 Glucose (65 - 99 mg/dL) 110 H Hemoglobin A1c Pending Calcium (8.4 - 10.2 mg/dL) 9.6 Magnesium (1.6 - 2.3 mg/dL) 1.9 Total Bilirubin (0.2 - 1.3 mg/dL) 0.9 AST (17 - 59 U/L) 35 ALT (21 - 72 U/L) 42 Alkaline Phosphatase (< 127 U/L) 71 Troponin I (<0.11 ng/ml) < 0.01 Total Protein (6.3 - 8.2 g/dL) 8.7 H Albumin (3.5 - 5.0 g/dL) 4.8 Globulin (1.9 - 4.2 gm/dL) 3.9 Albumin/Globulin Ratio (1.1 - 2.2 %) 1.2 TSH (0.270 - 4.200 uIU/mL) 1.090 Hematology CBC w Diff NO MAN DIFF REQ WBC (4.8 - 10.8 /CUMM) 6.2 RBC (4.70 - 6.10 /CUMM) 4.74 Hgb (14.0 - 18.0 G/DL) 14.3 Hct (42 - 52 %) 42.5 MCV (80.0 - 94.0 FL) 89.7 MCH (27.0 - 31.0 PG) 30.1 RDW (11.5 - 14.5 %) 13.2 Plt Count (130 - 400 /CUMM) 229 MPV (7.4 - 10.4 FL) 9.3 Gran % (42.2 - 75.2 %) 70.2 Lymphocytes % (20.5 - 51.1 %) 22.8 Monocytes % (1.7 - 9.3 %) 6.1 Eosinophils % (0 - 5 %) 0.5 Basophils % (0.0 - 2.0 %) 0.4 Absolute Granulocytes (1.4 - 6.5 /CUMM) 4.3 Absolute Lymphocytes (1.2 - 3.4 /CUMM) 1.4 Absolute Monocytes (0.10 - 0.60 /CUMM) 0.4 Absolute Eosinophils (0.0 - 0.7 /CUMM) 0 Absolute Basophils (0.0 - 0.2 /CUMM) 0 PUBS MCHC (33.0 - 37.0 G/DL) 33.6 Toxicology Urine Opiates Screen (>2000 NG/ML) > 4000.00 H Methadone Screen (>300 NG/ML) > 735 H Barbiturate Screen (>200 NG/ML) < 60 Ur Phencyclidine Scrn (>25 NG/ML) < 6.00 Amphetamines Screen (>1000 NG/ML) 285 U Benzodiazepines Scrn (>200 NG/ML) > 800 H Urine Cocaine Screen (>300 NG/ML) > 1000 H Urine Cannabis Screen (>50 NG/ML) < 5.00 Serum Alcohol (<10 MG/DL) < 10.0 Diagnostic Data EKG Results Normal QTC, sinus rhythm with multiple PVCs and diffuse T-wave inversions. Assessment/Plan Assessment: 41-year-old male with past medical history significant for anxiety, depression, suicidal ideation who is admitted to Inpatient Psychiatry with suicidal ideation with any plans. He was also drinking alcohol and using cocaine. His EKG is also abnormal. Electrolytes were normal. Echocardiogram results reviewed and shows stage I diastolic dysfunction. Please consult cardiology. Patient was started on Ativan protocol and CIWA protocol. He is also started on multivitamin, folate and thiamine. His methadone and other psych medications have been resumed. He is also started on nicotine patch. His first troponin was negative. Patient currently has no chest pain therefore I would hold off on any further troponin check. Will follow cardiac recommendations. For the psych management up to psychiatry. As Ranked By This Provider Problem List: 1. Anxiety 2. Major depression Qualifiers Major depression recurrence: recurrent Active/Remission status: currently active Major depression episode severity: unspecified Qualified Code: F33.9 - Major depressive disorder, recurrent, unspecified 3. Suicidal ideation 4. ETOH abuse Miscellaneous Miscellaneous Documentation Attending Case Discussed With: May Russell Primary Care Physician: [facility] Patient sees these Specialists [facility] Level of Patient Care: JOSEPH Garcia
--- NOTE | 2016-05-28 22:21 | NUR ---
PT IS VISIBLE ON UNIT, SOCIAL WITH PEERS AND STAFF. ATTENDED WRAO UP AND PARTICIPATED. COOPERATIVE AND COMPLIANT. NO COMPLAINTS OR SI REPORTED. PT HAS A STABLE MOOD AND FULL RANGE AFFECT.
[2016-05-29] VITALS (9 sets, daily range): BP systolic 110–140; BP diastolic 55–79
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
--- NOTE | 2016-05-29 13:19 | NUR ---
PT STATED HIS GOAL TODAY WAS TO STAY CALM. HE IS ON THE PHONE A LOT AND ATTENDED ONE GROUP. HE STATES HE PLANS TO GO [facility] FOLLOWING DETOX. HE DENIED ANY THOUGHTS OF SUICIDE AT THIS TIME
--- NOTE | 2016-05-29 21:35 | NUR ---
PTIN BED FOR MOST OF SHIFT. OOB FOR VITALS, DINNER, AND MEDS. WHEN IN COMMUNITY PT MAINLY ON PHONE. PT HAD ONE OUTBURST ON PHONE, WAS WARNED IF HE HAD ANOTHER OUTBURST HE WOULD LOOSE PHONE PRIVELAGES. PT PREOCCUPIED WITH PROBLEMS HAPPENING OUTSIDE OF THE HOSPITAL. PT IS STABLE WITH A FLAT AFFECT.
--- NOTE | 2016-05-29 22:19 | NUR ---
PT EXPRESSED PASSIVE SI DURING 1600 VITALS. STATES HE DOES NOT HAVE A PLAN AND WILL NOT ACT HERE IN THE HOSPITAL.
[2016-05-30] VITALS (9 sets, daily range): BP systolic 111–138; BP diastolic 64–79
--- NOTE | 2016-05-30 07:09 | NUR ---
PATIENT SLEPT MOST OF NIGHT IN BETWEEN CIWA ASSESSMENTS.
--- NOTE | 2016-05-30 11:29 | CP SOUTH PROGRESS NOTE PSYCH ---
Psych (Inpt) Progress Note Progress Note Include the following elements, when applicable: Involvement in the active treatment of the patient with behavioral observations of the patient and the patient's response to the treatment. Review of the ongoing treatment process in the context of the treatment plan. Indication of how multi-disciplinary staff members are carrying out the treatment plan. Plans for future interventions and recommendations for revision of the treatment plan. Liaison with other physicians/providers. Progress Note: This morning nodding off when he is meeting with me, stated that he rocks to self soothe as a coping skill. Explained to him that shortly after he gets his medication he usually becomes somnolent like this, that he does not appear anxious and his vitals have not been unstable; despite this somewhat irritable stating we are trying to kill him with lowering his bz. Also explained to me that he usually takes adderall which balances his sleepiness out in the community. Attempted to explain to him and educate him about the cycle of stimulation/sedation that he continues to be in which deregulate his mood. Didn t want to be woken up during the night for CIWA so agreed to maintain only while awake. MSE: middle aged man, overweight, poor grooming and hygiene. Psychomotor slowing , nodding to sleep during conversation. Irritable mildly but significantly less so than previously. No movement d/o noted. No eye contact, eyes closed for much of the eval. Affect constricted. Thought process concrete. Preoccupied w/ increasing the frequency and dose of his medication. No evidence acutely of thoughts to harm self/others. No evidence of internal preoccupation or voices. Thought content w/o evidence of any gross delusions. Insight impaired, judgment poor. A: 41 y/o man w. hx depressive sx, opioid, alcohol, bz use d/o, antisocial personality traits vs. disorder, presented irritated, s/p recent drug relapse after drug program; depressed over significant stressors (children taken away by [facility]); little insight to impact of drug use to his mental health. P: continued to educate him regarding medical risk of overusing bz with his concomittant alcohol, opiate and bz use in the community and risk of sz from withdrawal and in the community. No changes to bz taper; has been somewhat sedated during the day time and no indication of acute distress from withdrawal and vitals are continuing to be monitored w/ CIWA scale.
--- NOTE | 2016-05-30 13:36 | NUR ---
PT IS COMPLIANT AND COOPERATIVE. MOOD IS STABLE WITH A CONSTRICTED AFFECT. PT IS IRRITABLE AT TIMES- NOTED TO BE USING FOUL LANGUAGE AND MAKING INAPPROPRIATE STATEMENTS. DIFFICULT TO REDIRECT. PT DENIES SI AT THIS TIME, NO COMPLAINTS OFFERED. NO S/S OF DETOX NOTED, NO SCORING ON CIWA. PT IS PRESENT IN THE COMMUNITY AND INTERACTING WITH PEERS AND STAFF. PT ATTENDED ONE GROUP TODAY. VITALS ARE STABLE, APPETITE IS GOOD.
--- NOTE | 2016-05-30 20:34 | NUR ---
Pt is irritable towards the staff always med seeking. vital signs are stable appetite is good. Behavioral issues noted during the day. Will continue to monitor the pt behavior overnight.
[2016-05-31] VITALS (8 sets, daily range): BP systolic 117–131; BP diastolic 55–91
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
--- NOTE | 2016-05-31 13:25 | NUR ---
PT IS OUT IN COMMUNITY INTERACTING WITH STAFF AND PEERS. AT TIMES PT'S BEHAVIOR IS AN ISSUE AND NEEDS REDIRECTION. [facility] WAS CALL FOR A DISAGREEMENT WITH THIS PT AND ANOTHER. PT IS VERY MED SEEKING. PT MOOD IS STABLE WITH A CONSTRICTED AFFECT. PT SEEMS TIRED AND WILL TALK WITH HIS EYES CLOSED. PT ATTENDS GROUPS BUT IS MOSTLY PASSIVE AND LEAVES EARLY. PT IS NOT SCORING ON CIWA ASSESSMENT AND DENIES SI THOUGHTS.
--- NOTE | 2016-05-31 13:32 | CP SOUTH PROGRESS NOTE PSYCH ---
Psych (Inpt) Progress Note Progress Note Progress Note: I discussed this patient's progress to date, current mental status, treatment process in the context of the treatment plan, and discharge planning with staff/ team in the daily morning inpatient team meeting. I also met with the patient myself in individual session. A total of 25 minutes was spent with the patient with more than 50% spent in counseling and/or coordination of care. OBJECTIVE: Current Medications Sig/Clarisa Start time Last Medication Dose Route Stop Time Status Admin Folic Acid 1 MG DAILY 05/28 1356 AC 05/31 PO 0750 Gabapentin 600 MG BID@1400,2200 05/28 1400 AC 05/30 PO 2125 Hydroxyzine HCl 25 MG Q6P PRN 05/28 1400 AC 05/31 PO 1003 Lorazepam 0.5 MG ONCE 06/02 0000 AC PO 06/02 0001 Lorazepam 0.5 MG Q6H 06/01 0000 AC PO 06/01 1801 Lorazepam 0.5 MG ONCE ONE 05/31 1800 AC PO 05/31 1801 Lorazepam 1 MG Q6H 05/31 0000 DC 05/31 PO 05/31 1201 1222 Lorazepam 1.5 MG Q12H 05/30 0600 DC 05/30 PO 05/30 1801 1734 Lorazepam 2 MG Q2P PRN 05/28 1400 AC PO Lorazepam 1 MG Q2P PRN 05/28 1400 AC PO Methadone HCl 60 MG DAILY@0800 05/29 0800 AC 05/31 PO 0752 Multivitamins 1 TAB DAILY 05/28 1356 AC 05/31 PO 0750 Nicotine 7 MG DAILY 05/28 1414 AC 05/31 TOP 0750 Omeprazole 40 MG DAILY AC 05/29 0700 AC 05/31 PO 0750 Quetiapine Fumarate 100 MG DAILY 05/29 1000 DC 05/31 PO 0750 Quetiapine Fumarate 300 MG AT BEDTIME 05/28 2200 AC 05/30 PO 2126 Sertraline HCl 150 MG DAILY 05/29 1000 AC 05/31 PO 0845 Thiamine HCl 100 MG DAILY 05/28 1356 AC 05/31 PO 0750 Vital Signs Date Time Temp Pulse Resp B/P Pulse O2 O2 Flow FiO2 Ox Delivery Rate 05/31 1240 81 117/91 05/31 1238 81 117/71 05/31 0753 96.7 68 127/79 05/31 0729 96.7 68 127/79 05/30 1949 97.7 75 130/79 05/30 1945 97.7 75 130/79 ASSESSMENT: Today I met the patient along with social media editor Ruby Plascencia LCSW. Patient was tearful during our interview, recounting his drug abuse, recent discharge from [facility], and then finding that his was with another man and his children were in DCF custody. [facility] has now placed the children with the patient's mother, which he states is safe and appropriate for the children. Today during our interview, the patient appears sad and oversedated, although he denies feeling sedated. He was not irritable or angry during our interview today, which seems to be a change, as per previous notes. States that he only feels well when he is taking Xanax. Depression:10/10; Anxiety:8/10 (with 10 the worst.) Denies suicidal ideation, homicidal ideation, paranoid ideation. He states that he "hears some voices." He also reports seeing a recurrent visual hallucination of a box and some tools which he is working with, and then all of a sudden they "just disappear." Speech is well articulated, goal-directed, average in rate, volume and tone. Reports sleeping approximate 5 hours every night, states his appetite is low. The patient understands the risks/benefits/side effects of the medication and is agreeable to continue taking them. PLAN: Discontinue daytime Seroquel, as the patient appears to be overly sedated. Continue with current management as patient is improving. Continue to provide support and encouragement.
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
[2016-06-01] VITALS (8 sets, daily range): BP systolic 123–146; BP diastolic 64–82
--- NOTE | 2016-06-01 05:36 | NUR ---
SLEPT WELL NO ISSUES.
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
--- NOTE | 2016-06-01 13:23 | NUR ---
PT IS OUT IN COMMUNITY INTERACTING AT TIMES WITH STAFF AND PEERS. PT CAN BE IRRITABLE AT TIMES WITH MEDICATION AND WITH SETTING LIMITS. PT IS ON THE PHONE CONSENTLY AND NEEDS TO BE REMINDED IT IS A GROUP PHONE. PT IS ACTIVE IN SOME GROUPS BUT LEAVES EARLY AND DOESN'T PARTIPACTE MUCH. PT DENIES SI THOUGHTS.
--- NOTE | 2016-06-01 13:49 | NUR ---
has been going to groups. continues to self advocate for additional benzos. interacts with peers and staff. denies thoughts of self harm when asked. mood is stable, full range of affect.
--- NOTE | 2016-06-01 18:48 | Cons- Cardiology ---
General Information and HPI Consulting Request Date of Consult: 06/01/16 Requested By: TORRI MUNIZ MD Reason for Consult: Frequent ventricular ectopy. Source of Information: patient, old records Exam Limitations: poor historian History of Present Illness: Mr. Ciro Ashton is a 41-year-old male with a history of bipolar disorder, posttraumatic stress disorder, panic attacks, attention deficit hyperactivity disorder, depression, sleep disorder, drug and alcohol abuse, and gastroesophageal reflux disease who was admitted to the inpatient psychiatric unit with suicidal ideation and who was found to have frequent ventricular ectopy while being evaluated in the ED. He denies any history of coronary, valvular, dysrhythmic/conduction disease, or cardiomyopathy. He also denies any history of hypertension, dyslipidemia, diabetes mellitus, or strong family history for premature coronary artery disease. He does admit to tobacco use and states that for the past couple of years he has only smoked about 6 cigarettes daily. He did for several years smoke at least a pack of tobacco a day. Allergies/Medications Allergies: Coded Allergies: haloperidol (From HALDOL) (Mild, HIVES 07/10/15) shellfish derived (Mild, HIVES - SEAFOOD HIVES 07/21/15) latex (03/24/16) UPON ADMISSION 03/22/16, PT SAID HE HAD LATEX ALLERGY. TODAY PT SAID "I DON'T KNOW. MAYBE." Home Med List: Alprazolam 2 MG TABLET 1 TAB PO TID ANXIETY (Reported) Alprazolam 0.25 MG TABLET 1 TAB PO TIDPRN ANXIETY (Reported) Chlorpromazine HCl 50 MG TABLET 1 CAP PO BID MENTAL HEALTH (Reported) Dextroamphetamine/Amphetamine (Dextroamp-Amphetamin 20 MG Tab) 20 MG TABLET 1 TAB PO BID MENTAL HEALTH (Reported) Esomeprazole (Nexium) 40 MG CAPSULE.DR 1 CAP PO DAILY GI (Reported) Gabapentin 400 MG CAPSULE 1 CAP PO TID MENTAL HEALTH (Reported) Hydroxyzine Pamoate (Vistaril) 25 MG CAPSULE 1 CAP PO BID ANXIETY (Reported) Hydroxyzine Pamoate (Vistaril) 25 MG CAPSULE 2 CAP PO QPM ANXIETY (Reported) Methadone HCl 10 MG/5 ML SOLUTION 100 MG PO DAILY MENTAL HEALTH (Reported) Quetiapine Fumarate 100 MG TABLET 1 TAB PO BID MENTAL HEALTH (Reported) Quetiapine Fumarate (Seroquel XR) 150 MG TAB.ER.24H 1 TAB PO QPM MENTAL HEALTH (Reported) Sertraline HCl 100 MG TABLET 1.5 TAB PO DAILY MENTAL HEALTH (Reported) Review of Systems Review of Systems: A 14 point system review was obtained and was noncontributory, other than as above. 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 Home Services at Home: None ETOH Use: denies use Functional Ability IADLs Independent: shopping, housework, food prep. Employment History Employment: Disability Profession/Employer The patient states that he has not worked in 15 years. Exam & Diagnostic Data Vital Signs and I&O Vital Signs Date Time Temp Pulse Resp B/P Pulse O2 O2 Flow FiO2 Ox Delivery Rate 06/01 1630 82 131/64 06/01 1617 82 131/64 06/01 1224 72 146/82 06/01 1200 72 146/82 06/01 0741 96.7 63 135/76 06/01 0739 96.7 63 135/76 05/31 1953 97.9 76 122/55 05/31 1950 97.9 76 122/55 Physical Exam: Well-developed, overweight middle-aged male in no acute distress. Vital signs: See above. HEENT: Normocephalic, atraumatic, EOMI, moist mucous membranes. Neck: No JVD, no bruits. Lungs: Clear to auscultation bilaterally. Heart: S1, S2 with no murmur, gallop, or rub appreciated. PMI fifth ICS at [facility]. Abdomen: Soft, nontender, positive bowel sounds. Extremities: No edema. Pulses: Symmetrical and intact. Assessment/Plan Assessment/Plan Mr. Ashton is a middle-aged male with multiple psychiatric issues along with drug and alcohol abuse who was admitted to the inpatient psychiatric unit with suicidal ideation and who was discovered to have frequent ventricular ectopy on electrocardiographic monitoring while in the ED. His most recent electrocardiogram was performed on 05/27/2016 and revealed sinus rhythm with frequent ventricular premature contractions, borderline left axis deviation, minor nondiagnostic inferior T-wave abnormalities, late precordial transition, and high lateral Q waves. On reviewing previous tracings dating back to as far as 11/22/2008 he has never had evidence of ventricular ectopy before. He did previously have small Q waves in the high lateral leads that are a little more pronounced on his most recent tracing. An echocardiogram was performed on 05/27/2016 that revealed a normal-sized left ventricle, mild to moderate concentric left ventricular hypertrophy, no obvious regional wall motion abnormalities, and normal systolic function with an estimated ejection fraction of greater than 65%, a right ventricle was of normal size and function, normal size atria, normal appearing valves, no pericardial effusion, and a normal size aortic root. The Doppler portion of the study revealed mild mitral, trace tricuspid, trace pulmonic regurgitation, and a delayed relaxation left ventricular inflow pattern system with stage I diastolic dysfunction. Ventricular ectopy can occur in structurally normal, as well as, structurally abnormal hearts and in a variety of clinical situations. While they can occur as a result of stress, drugs, alcohol, etc. they can also occur as a result of certain electrolyte abnormalities. They can also occur as a result of structural cardiac abnormalities including ischemic and nonischemic cardiomyopathies, hypertrophic cardiomyopathy, ischemia , myocardial scarring, etc. At this juncture, it would be reasonable to obtain some blood work on Mr. Ashton to include potassium, magnesium levels, a glycosylated hemoglobin A1c level, thyroid function testing with a free T4 and TSH, fasting lipid panel high sensitivity C-reactive protein level, etc. An imaging stress test would also be reasonable to help exclude any underlying ischemia which can be performed on an outpatient basis. We will plan to follow up with Mr. Ashton on an outpatient basis to review his blood work, stress test, etc. and make further recommendations as indicated. Thank you. Consult Acknowledgment - Thank you for your consult request. Consult Acknowledgment - Thank you for your consult request.
--- NOTE | 2016-06-01 19:35 | CP SOUTH PROGRESS NOTE PSYCH ---
Psych (Inpt) Progress Note Progress Note Progress Note: I discussed this patient's progress to date, current mental status, treatment process in the context of the treatment plan, and discharge planning with staff/ team in the daily morning inpatient team meeting. I also met with the patient myself in individual session. A total of 25 minutes was spent with the patient with more than 50% spent in counseling and/or coordination of care. SUBJECTIVE: "Everytime I come off the Xanax I get into a sh*t storm." OBJECTIVE: Current Medications Sig/Clarisa Start time Last Medication Dose Route Stop Time Status Admin Diphenhydramine HCl 50 MG ONCE ONE 05/31 2144 DC 05/31 PO 05/31 214 2147 Folic Acid 1 MG DAILY 05/28 1356 AC 06/01 PO 0755 Gabapentin 600 MG BID@1400,2200 05/28 1400 AC 06/01 PO 1332 Hydroxyzine HCl 25 MG Q6P PRN 05/28 1400 AC 06/01 PO 1755 Lorazepam 0.5 MG ONCE 06/02 0000 AC PO 06/02 0001 Lorazepam 0.5 MG Q6H 06/01 0000 DC 06/01 PO 06/01 1801 1754 Lorazepam 2 MG Q2P PRN 05/28 1400 AC PO Lorazepam 1 MG Q2P PRN 05/28 1400 AC PO Methadone HCl 60 MG DAILY@0800 05/29 0800 AC 06/01 PO 0754 Multivitamins 1 TAB DAILY 05/28 1356 AC 06/01 PO 0754 Nicotine 7 MG DAILY 05/28 1414 AC 06/01 TOP 0755 Omeprazole 40 MG DAILY AC 05/29 0700 AC 06/01 PO 0726 Prazosin HCl 1 MG AT BEDTIME 06/01 2200 AC PO Quetiapine Fumarate 25 MG Q4 HRS NEEDED PRN 06/01 1130 AC 06/01 PO 1332 Quetiapine Fumarate 300 MG AT BEDTIME 05/28 2200 AC 05/31 PO 2146 Sertraline HCl 150 MG DAILY 05/29 1000 AC 06/01 PO 0754 Thiamine HCl 100 MG DAILY 05/28 1356 AC 06/01 PO 0754 Vital Signs Date Time Temp Pulse Resp B/P Pulse O2 O2 Flow FiO2 Ox Delivery Rate 06/01 1630 82 131/64 06/01 1617 82 131/64 06/01 1224 72 146/82 06/01 1200 72 146/82 06/01 0741 96.7 63 135/76 06/01 0739 96.7 63 135/76 05/31 1952 97.9 76 122/55 05/31 1949 97.9 76 122/55 ASSESSMENT: Today the patient continues to be insistent that he is needs Xanax. I explained (again), that we could not prescribe Xanax/benzodiazapines while he is taking Methadone, and our plan will be to safely taper him down and off of benzodiazapines. He is very upset about this. States he can get a prescription for Xanax from his methadone clinic. He did not appear sedated in the morning, as he did yesterday. He was noted to be sleeping in a chair in the patient lounge this afternoon. Patient has a three-day paper ending tomorrow. States Gabapentin is helpful for anxiety. Continues to c/o "racing thoughts." States he continues to have hallucinations of a "box that he is working on, and then it disappears." Depression: ; Anxiety: (with 10 the worst.) Reports intermittent suicidal ideation, "I get all kinds of ideas, but I won't do anything." He contracts for safety. States and also believes that he will not kill himself. Denies auditory hallucinations, paranoid ideation. He reports sleeping well, with nightmares. His appetite is "not so good." Speech is well articulated, goal-directed, average in rate, volume and tone. The patient understands the risks/benefits/side effects of the medication and is agreeable to continue taking them. PLAN: Add Seroquel 25mg prn for continuing anxiety and racing thoughts. Prazosin at bedtime for nightmares. Continue with other current management as patient is improving. Continue to provide support and encouragement.
[2016-06-01 21:20] LABS: ABSOLUTE BASOPHIL COUNT 0 /CUMM (0.0-0.2); ABSOLUTE EOSINOPHIL COUNT 0.2 /CUMM (0.0-0.7); ABSOLUTE GRANULOCYTE CT 4.2 /CUMM (1.4-6.5); ABSOLUTE LYMPH COUNT 2.6 /CUMM (1.2-3.4); ABSOLUTE MONOCYTE COUNT 0.6 /CUMM (0.10-0.60); BASOPHIL % 0.3 % (0.0-2.0); EOSINOPHIL % 2.5 % (0-5); GRANULOCYTE % 54.8 % (42.2-75.2); HEMATOCRIT 39.3 % (42-52); MEAN CORPUSCULAR HGB 29.9 PG (27.0-31.0); MEAN CORPUSCULAR HGB CONC 33.1 G/DL (33.0-37.0); MEAN CORPUSCULAR VOLUME 90.4 FL (80.0-94.0); MEAN PLATELET VOLUME 9.2 FL (7.4-10.4); PLATELET COUNT 190 /CUMM (130-400); RBC DISTRIBUTION WIDTH 12.7 % (11.5-14.5); RED BLOOD CELL CT 4.34 /CUMM (4.70-6.10); WHITE BLOOD CELL COUNT 7.7 /CUMM (4.8-10.8)
--- NOTE | 2016-06-01 22:14 | NUR ---
PT IS STABLE WITH CONSTRICTED AFFECT. PT IS PRESENT WITHIN THE COMMUNITY AND INTERACTS WITH PEERS AND STAFF. PT IS EASILY AGITATED AND COMPLAINS OF ANXIETY AND CHEST PAIN. AN EKG AND BLOOD CULTURES WERE ORDERED AND COMPLETED. PT WAS AGGRAVATED THAT HE NEEDED TO HAVE A SECOND EKG COMPLETED AFTER HAVING ONE TODAY. REPOTED THE EKG APPEARS NORMAL AND WE ARE WAITING THE RESULTS OF THE BLOOD TESTS. PT ATTENDED WRAP UP GROUP. VS ARE STABLE AND PT DENIES ANY SI/HI.
[2016-06-02] VITALS (9 sets, daily range): BP systolic 105–132; BP diastolic 54–83
--- NOTE | 2016-06-02 00:42 | NUR ---
[address] STEPHENS PT. HR 42-48 DORINA B/P 123/67 C/O PAIN POINTING TO LEFT UPPER ABDOMINAL AREA. LABS ORDERED EKG ORDERED. HR UP WITH EKG @81. LABS RESULTED WNL EKG DONE NO CHANGE FROM PREVIOUS DR. STEPHENS REPORTED TO THIS RN. WILL MONITOR THROUGHOUT SHIFT AND REPORT ANY ABNORMAL SIGNS AND SYMPTOMS.
--- NOTE | 2016-06-02 00:42 | Event Note ---
Event Note Event Note: RN reported that patient was having upper abdominal discomfort, but no nausea, vomiting, diaphoresis or chest pain. EKG showed SR with ventricular bigeminy. EKG on admission (05/27) was SR with PVCs. Also, RN noted that patient was bradycardic to 40's, and BP was 123/67. We repeated blood work, troponin was negative and electrolytes were normal. Patient's HR improved to 80's thereafter. Dr. Adams has consulted on this patient earlier today, patient will need outpatient stress test. Pending labs for AM include TSH, free T4, HbA1c, lipid panel and HsCRP.
--- NOTE | 2016-06-02 14:44 | NUR ---
PT IS STABLE WITH CONSTRICTED AFFECT. VISIBLE WITHIN THE COMMUNITY AND INTERACTS WITH PEERS/STAFF MEMBERS. PT IS INAPPROPRIATE AT SOME POINTS AND REQUIRES REDIRECTION. PT IS CURRENTLY HYPERACTIVE AND PACING THE UNIT CLICKING A PEN. PT APPEARS IRRITABLE AND EASILY AGITATED BY STAFF MEMBERS. PT DID ATTEND GROUPS TODAY DESPITE FEELING "SO-SO". VS ARE STABLE AND PT DENIES ANY SI/HI TO THIS [facility].
--- NOTE | 2016-06-02 15:18 | CP SOUTH PROGRESS NOTE PSYCH ---
Psych (Inpt) Progress Note Progress Note Progress Note: I discussed this patient's progress to date, current mental status, treatment process in the context of the treatment plan, and discharge planning with staff/ team in the daily morning inpatient team meeting. I also met with the patient myself in individual session. A total of 15 minutes was spent with the patient with more than 50% spent in counseling and/or coordination of care. SUBJECTIVE: "I still see the boxes, but not as much. I'm building the box. It happens quickly, it scares me. My mind is always racing." OBJECTIVE: Current Medications Sig/Clarisa Start time Last Medication Dose Route Stop Time Status Admin Folic Acid 1 MG DAILY 05/28 1356 AC 06/02 PO 0842 Gabapentin 600 MG 0800,1300,0 06/02 1300 AC 06/02 PO 1226 Gabapentin 600 MG BID@1400,2200 05/28 1400 DC 06/01 PO 2155 Hydroxyzine HCl 10 MG Q6-PRN PRN 06/02 1045 AC PO Hydroxyzine HCl 25 MG Q6P PRN 05/28 1400 DC 06/02 PO 0852 Lorazepam 0.5 MG ONCE 06/02 0000 DC 06/01 PO 06/02 0001 2327 Lorazepam 0.5 MG Q6H 06/01 0000 DC 06/01 PO 06/01 1801 1754 Lorazepam 2 MG Q2P PRN 05/28 1400 AC PO Lorazepam 1 MG Q2P PRN 05/28 1400 AC PO Methadone HCl 60 MG DAILY@0800 05/29 0800 AC 06/02 PO 0852 Multivitamins 1 TAB DAILY 05/28 1356 AC 06/02 PO 0844 Nicotine 7 MG DAILY 05/28 1414 AC 06/02 TOP 0844 Omeprazole 40 MG DAILY AC 05/29 0700 AC 06/02 PO 0840 Prazosin HCl 1 MG AT BEDTIME 06/01 2200 AC 06/01 PO 2155 Quetiapine Fumarate 400 MG AT BEDTIME 06/02 2200 AC PO Quetiapine Fumarate 25 MG Q4 HRS NEEDED PRN 06/01 1130 AC 06/02 PO 1330 Quetiapine Fumarate 300 MG AT BEDTIME 05/28 2200 DC 06/01 PO 2155 Sertraline HCl 150 MG DAILY 05/29 1000 AC 06/02 PO 0844 Thiamine HCl 100 MG DAILY 05/28 1356 AC 06/02 PO 0843 Tuberculin PPD 0.1 ML ONCE ONE 06/02 0845 DC 06/02 ID 06/02 0846 0937 Laboratory Tests 06/01 2037 Chemistry Sodium (137 - 145 mmol/L) 137 Potassium (3.5 - 5.1 mmol/L) 4.6 Chloride (98 - 107 mmol/L) 99 Carbon Dioxide (22 - 30 mmol/L) 29 Anion Gap (5 - 16) 9 BUN (9 - 20 mg/dL) 22 H Creatinine (0.7 - 1.2 mg/dL) 0.8 Estimated GFR (>60 ml/min) > 60 BUN/Creatinine Ratio (7 - 25 %) 27.5 H Magnesium (1.6 - 2.3 mg/dL) 1.9 Total Bilirubin (0.2 - 1.3 mg/dL) 0.4 Direct Bilirubin (< 0.4 mg/dL) 0.4 AST (17 - 59 U/L) 30 ALT (21 - 72 U/L) 34 Alkaline Phosphatase (< 127 U/L) 67 Troponin I (<0.11 ng/ml) < 0.01 Total Protein (6.3 - 8.2 g/dL) 7.5 Albumin (3.5 - 5.0 g/dL) 4.0 Hematology CBC w Diff NO MAN DIFF REQ WBC (4.8 - 10.8 /CUMM) 7.7 RBC (4.70 - 6.10 /CUMM) 4.34 L Hgb (14.0 - 18.0 G/DL) 13.0 L Hct (42 - 52 %) 39.3 L MCV (80.0 - 94.0 FL) 90.4 MCH (27.0 - 31.0 PG) 29.9 RDW (11.5 - 14.5 %) 12.7 Plt Count (130 - 400 /CUMM) 190 MPV (7.4 - 10.4 FL) 9.2 Gran % (42.2 - 75.2 %) 54.8 Lymphocytes % (20.5 - 51.1 %) 34.2 Monocytes % (1.7 - 9.3 %) 8.2 Eosinophils % (0 - 5 %) 2.5 Basophils % (0.0 - 2.0 %) 0.3 Absolute Granulocytes (1.4 - 6.5 /CUMM) 4.2 Absolute Lymphocytes (1.2 - 3.4 /CUMM) 2.6 Absolute Monocytes (0.10 - 0.60 /CUMM) 0.6 Absolute Eosinophils (0.0 - 0.7 /CUMM) 0.2 Absolute Basophils (0.0 - 0.2 /CUMM) 0 PUBS MCHC (33.0 - 37.0 G/DL) 33.1 Vital Signs Date Time Temp Pulse Resp B/P Pulse O2 O2 Flow FiO2 Ox Delivery Rate 06/02 1230 74 127/79 06/02 1228 74 127/79 06/02 0811 95.0 79 124/83 06/02 0807 95.0 74 124/83 06/01 2155 97.6 42 16 123/67 06/01 204 81 06/01 204 81 06/01 1941 97.6 42 123/67 06/01 1938 97.6 42 123/06/01 1630 82 131/64 06/01 1617 82 131/64 ASSESSMENT: Patient was evaluated last night for abdominal discomfort by Dr. Mclain. Please refer to that note for additional information. He rescinded his three-day paper early this morning. Patient presents today as irritable, complaining of depression and anxiety "through the roof." States he continues to have suicidal thoughts, however is able to contract for safety at this time. He continues to complain of having an intermittent hallucination that he is building a box, the hallucination intermittently appears suddenly and then disappears. States that he finds this hallucination to be scary. He continues to be upset about not taking benzodiazepines, however appears to be physically tolerating this well. Depression:10/10; Anxiety:10/10 (with 10 the worst.) Denies homicidal ideation, paranoid ideation. Patient contracts for safety on this unit. States that he is of no danger of harming himself when he is in a safe environment, and believes that if he can get into a residential rehabilitation program, that he will be safe and not have suicidal thoughts. Speech is well articulated, goal-directed, average in rate, volume and tone. Sad, irritable. Alert and oriented 3. States that his sleep was okay. His appetite is "so-so." The patient understands the risks/benefits/side effects of the medication and is agreeable to continue taking them. PLAN: Increase Seroquel at bedtime for continuing racing thoughts, suicidal ideation, and hallucinations. Decrease Atarax from 25 mg 10 mg, as the patient often appears somewhat sedated. Increase gabapentin to 3 times daily for anxiety. Social Work is helping patient look for residential rehab. Continue with current management as patient is improving. Continue to provide support and encouragement.
--- NOTE | 2016-06-02 15:56 | SOCIAL WORKER PROG NOTE PSYCH ---
Social Work Progress Note Progress Note Ciro revoked his 3 day termination of voluntary status today, informing Javed Dumont APRN this morning that he felt suicidal. I received a voicemail from the admission coordinator at [facility] that she would call back to screen Ciro today and that they may have a bed. Discussed this opportunity with Ciro. Who immediately became excited about the opportunity and stated he hoped to go there. When asked about his suicidality he commented that if he were in a program he would be fine and that he hasn't had the opportunity to go to a program before. I told him I would let him know when Yamile wants to do the screening. I later discovered that there was a mistake on his face sheet and that he currently has Husky A, not Husky D which was typed on his document. Informed him of this discrepency. He was clearly disappointed and stated that he wondered if he could call insurance to see if they would change it due to not having his children right now. I gave him the number to [facility] and he called. He reported that he was able to switch his insurance and he will have Husky D effective 06/16. Encouraged him to call Malcolm Mujica today. He also filled out a release to send clinical to [facility] in [place]. Clinical faxed.
--- NOTE | 2016-06-02 23:21 | NUR ---
PT BEGAN SHIFT WITHDRAWN AND ISOLATIVE, SPENDING MOST OF THE TIME IN ROOM, SLEEPING, AWAY FROM POPULATION. PT EVENTUALLY BECAME MORE SOCIAL THE SHIFT PROGRESSED, ENTERING [place] AND SPENDING TIME INTERACTING WITH STAFF AND PEERS. PT MOOD IS STABLE, AFFECT IS EUTHYMIC, COMMUNICATION IS NORMAL, AND APPETITE IS NORMAL. PT CLAIMED SI DURING 1600 VITALS, THOUGH WHEN INQUIRED HE STATED HE DID NOT HAVE A PLAN, AND THAT HE WOULD NOT CARRY ANYTHING OUT ON THE UNIT. THE CHARGE NURSE WAS NOTIFIED OF THIS CLAIM. PT HAS BEEN COOPERATIVE WITH STAFF AND PEERS, AND COMPLIANT WITH UNIT RULES THOUGH THE REST OF THE SHIFT.
[2016-06-03] VITALS (7 sets, daily range): BP systolic 103–130; BP diastolic 55–76
--- NOTE | 2016-06-03 04:18 | NUR ---
Patient slept well, npo after midnight for labs, no issues.
--- NOTE | 2016-06-03 10:02 | SOCIAL WORKER PROG NOTE PSYCH ---
Social Work Progress Note Progress Note Spoke with [facility]azu[facility] in [place] Ciro is still on the wait list, he has been approved for placement they do not have any openings at this time, they have our contact info for Ciro and encouraged him to call weekly to show continued interest.
--- NOTE | 2016-06-03 11:20 | SOCIAL WORKER PROG NOTE PSYCH ---
Social Work Progress Note Progress Note [facility] bed, they need to make sure they have a DR on site that can provide pt with Methadone. They will retunr the call in 15 minutes. And then they will need to do a pre-screening at 2pm.
--- NOTE | 2016-06-03 12:16 | SOCIAL WORKER PROG NOTE PSYCH ---
Social Work Progress Note Progress Note Ciro was on the phone with Yamile from [facility]. I encouraged him to ask her about the insurance and if [facility]hay [facility] is accepted. He was informed that he would need to wait until 06/16 when his Husky D becomes effective. When he got off the phone he said that he would just need to wait to go there. I told him that he really couldn't remain in the hospital here until that time. He talked about "lying" to her about his suicidality in order to get into the program. He continues to say that he really doesn't "give a shit" about anything right now and if we let him go from the hospital he goes. I asked if he would be able to remain safe? He said he didn't know what would happen when he leaves here. He stated that he doesn't feel stable and says one minute he is thinking positive goals and working towards wanting his kids back and then the next minute he has crazy thoughts about wanting to end his life. He just doesn't know what he'll do if he were to leave.
--- NOTE | 2016-06-03 12:54 | CP SOUTH PROGRESS NOTE PSYCH ---
Psych (Inpt) Progress Note Progress Note Progress Note: I discussed this patient's progress to date, current mental status, treatment process in the context of the treatment plan, and discharge planning with staff/ team in the daily morning inpatient team meeting. I also met with the patient myself in individual session. A total of 15 minutes was spent with the patient with more than 50% spent in counseling and/or coordination of care. SUBJECTIVE: "I have all sorts of thoughts. I feel like it's hard to move. I feel like a slug." OBJECTIVE: Current Medications Sig/Clarisa Start time Last Medication Dose Route Stop Time Status Admin Folic Acid 1 MG DAILY 05/28 1356 AC 06/03 PO 0805 Gabapentin 600 MG 0800,1300,2200 06/02 1300 AC 06/03 PO 1207 Hydroxyzine HCl 10 MG Q6-PRN PRN 06/02 1045 AC PO Lorazepam 2 MG Q2P PRN 05/28 1400 DC PO Lorazepam 1 MG Q2P PRN 05/28 1400 DC PO Methadone HCl 60 MG DAILY@0800 05/29 0800 AC 06/03 PO 0805 Multivitamins 1 TAB DAILY 05/28 1356 AC 06/03 PO 0805 Nicotine 7 MG DAILY 05/28 1414 AC 06/03 TOP 0806 Omeprazole 40 MG DAILY AC 05/29 0700 AC 06/03 PO 0707 Prazosin HCl 1 MG AT BEDTIME 06/01 2200 AC 06/02 PO 2141 Quetiapine Fumarate 50 MG Q4 HRS NEEDED PRN 06/03 0800 AC 06/03 PO 0903 Quetiapine Fumarate 400 MG AT BEDTIME 06/02 2200 AC 06/02 PO 2141 Quetiapine Fumarate 100 MG ONCE ONE 06/02 1545 DC 06/02 PO 06/02 1546 1544 Quetiapine Fumarate 25 MG Q4 HRS NEEDED PRN 06/01 1130 DC 06/02 PO 1330 Sertraline HCl 150 MG DAILY 05/29 1000 AC 06/03 PO 0805 Thiamine HCl 100 MG DAILY 05/28 1356 AC 06/03 PO 0805 Laboratory Tests 06/03 06/03 0704 0704 Chemistry Hemoglobin A1c Pending C-React Prot High Sens (1.0 - 3.0 mg/L) 1.3 Triglycerides (<150 mg/dL) 750 H Cholesterol (< 200 MG/DL) 199 LDL Cholesterol, Calc (65 - 129 mg/dL) ND HDL Cholesterol (40 - 60 mg/dL) 39 L Cholesterol/HDL Ratio (0.00 - 4.88 %) 5 H TSH (0.270 - 4.200 uIU/mL) 2.980 Free T4 (0.64 - 1.79 ng/dL) 0.59 L Vital Signs Date Time Temp Pulse Resp B/P Pulse O2 O2 Flow FiO2 Ox Delivery Rate 06/03 1156 52 103/55 06/03 1153 52 103/55 06/03 0853 97.5 64 126/67 06/03 0815 97.5 64 126/67 06/02 2141 66 129/66 06/02 2024 97.4 66 129/66 06/02 2016 97.4 66 129/66 06/02 1609 70 105/54 06/02 1603 70 106/54 ASSESSMENT: Today patient presents looking tired, sad, and depressed. He reports continuing depression and anxiety, continuing intermittent suicidal ideation. He reports that the visual hallucination of seeing a "box and tools" has not appeared today, states it is apparently getting better. States that he did not have nightmares for the past 2 nights after taking prazosin. He reports sleeping well last night after taking Seroquel 400 mg at bedtime. Depression:10/10; Anxiety:5/10 (with 10 the worst.) Denies homicidal ideation, auditory hallucinations, visual hallucinations, paranoid ideation. Patient reports continuing intermittent suicidal ideation, however is able to contract for safety while here on the unit He reports that his appetite is good. Speech is well articulated, goal-directed, average in rate, quiet and volume and tone. Sad, quiet affect. Alert and oriented 3. The patient understands the risks/benefits/side effects of the medication and is agreeable to continue taking them. PLAN: Social work continues to look for residential rehabilitation programs now that he is switched insurance to [employer]. Continue with current management as patient is improving. Continue to provide support and encouragement.
--- NOTE | 2016-06-03 13:40 | NUR ---
PT IS IRRITABLE WITH ANGRY AFFECT. HE IS FOCUSED ON MEDS AND IS ENC TO ATTEND GROUPS AND EXPLORE POSITIVE WAYS TO COPE WITH HOW HE FEELS. PT IS MAKING PHONE CALLS IN ATTEMPT TO FIND A PROGRAM FOR AFTERCARE. WHEN ASKED HE DENIED SUICIDAL THOUGHTS
--- NOTE | 2016-06-03 22:00 | NUR ---
PT IS STABLE WITH FULL RANGE OF AFFECT. PRESENT WITHIN THE COMMUNITY, PT IS CURRENTLY INTERACTING WITH PEERS IN THE KITCHEN WHILE WATCHING TV. PT IS COMPLIANT AT TIMES YET A BIT INTRUSIVE AND DEMANDING. WHEN ASKED TO WAIT A MOMENT DUE TO A NEW ADMISSION, PT BECAME IRRITATED AND MUMBLING UNDER HIS BREATH. PT REQUIRES SOME REDIRECTION AT TIMES BUT REMAINS APPROPRIATE DURING THIS SHIFT. VS ARE STABLE AND PT DENIES SI/HI TO THIS MHW.
[2016-06-04 07:46] VITALS: BP 121/72
[2016-06-04 07:47] VITALS: BP 121/72
--- NOTE | 2016-06-04 11:10 | SOCIAL WORKER PROG NOTE PSYCH ---
Social Work Progress Note Progress Note Called [facility] to check bed availability. Staff in admissions informed me that there are no beds right now and that there may not be something open until the end of the month. She encouraged to check in regularly. Kaiser Williamson from [facility] diversion called and left a message and faxed in regards to Ciro court date in [place] [address] on Wednesday 06/07. I called Kaiser back and left a voicemail that Ciro is still inpatient and will not make that court appearance and if he would like me to fax a letter to court I will. Talked with Ciro who signed a release for [facility]. Ciro talked about "never feeling as fucked up" as he does currently. He still reporting visual hallucinations of a box and reports severe depression and "heart break" because of his 's infidelity. He said that his has been trying to move forward as if nothing has happened, but he doesn't feel he could do that. States he would feel paranoid all the time that she is cheating on him. He got tearful in talking about it. He really wants to go to a program and is going to do anything he can to get there. He stated that if he wasn't in the hospital he would probably kill himself.
[2016-06-04 12:06] VITALS: BP 128/79
[2016-06-04 12:52] VITALS: BP 128/79
--- NOTE | 2016-06-04 13:59 | NUR ---
PT IS COMPLIANT AND COOPERATIVE. MOOD IS STABLE WITH A CONSTRICTED AFFECT. PT DENIES SI AT THIS TIME, NO COMPLAINTS OFFERED. PT NOTED TO BE USING FOUL/INAPPROPRIATE LANGUAGE- IS REDIRECTABLE. PT IS PRESENT IN THE COMMUNITY AND INTERACTING WITH PEERS AND STAFF. NO S/S OF DETOX NOTED OR REPORTED, NO SCORING ON CIWA. PT IS ATTENDING SOME GROUPS. VITALS ARE STABLE, APPETITE IS GOOD.
--- NOTE | 2016-06-04 16:32 | CP SOUTH PROGRESS NOTE PSYCH ---
Psych (Inpt) Progress Note Progress Note Progress Note: I discussed this patient's progress to date, current mental status, treatment process in the context of the treatment plan, and discharge planning with staff/ team in the daily morning inpatient team meeting. I also met with the patient myself in individual session. A total of 15 minutes was spent with the patient with more than 50% spent in counseling and/or coordination of care. SUBJECTIVE: "I need to get something to get through the day. I have suicidal thoughts all day long. I contemplate the box. I've never been like this." OBJECTIVE: Current Medications Sig/Clarisa Start time Last Medication Dose Route Stop Time Status Admin Folic Acid 1 MG DAILY 05/28 1356 AC 06/04 PO 0742 Gabapentin 600 MG 0800,1300,1700,2200 06/04 1315 AC 06/04 PO 1331 Gabapentin 600 MG 0800,1300,2200 06/02 1300 DC 06/04 PO 0742 Hydroxyzine HCl 10 MG Q6-PRN PRN 06/02 1045 AC 06/03 PO 1726 Methadone HCl 60 MG DAILY@0800 05/29 0800 AC 06/04 PO 0741 Multivitamins 1 TAB DAILY 05/28 1356 AC 06/04 PO 0742 Nicotine 7 MG DAILY 05/28 1414 AC 06/04 TOP 0742 Omeprazole 40 MG DAILY AC 05/29 0700 AC 06/04 PO 0742 Prazosin HCl 1 MG AT BEDTIME 06/01 2200 AC 06/03 PO 2135 Quetiapine Fumarate 50 MG 0800,1300,1700 06/04 1315 AC 06/04 PO 1331 Quetiapine Fumarate 50 MG Q4 HRS NEEDED PRN 06/03 0800 DC 06/04 PO 1003 Quetiapine Fumarate 400 MG AT BEDTIME 06/02 2200 AC 06/03 PO 2134 Sertraline HCl 150 MG DAILY 05/29 1000 AC 06/04 PO 0742 Thiamine HCl 100 MG DAILY 05/28 1356 AC 06/04 PO 0742 Vital Signs Date Time Temp Pulse Resp B/P Pulse O2 O2 Flow FiO2 Ox Delivery Rate 06/04 1252 60 128/79 06/04 1206 60 128/79 06/04 0747 96.3 59 121/72 06/04 0746 96.3 59 121/72 06/035 97.3 68 06/03 97.3 68 12406/03 97.3 68 ASSESSMENT: Patient presents as anxious, reports continuing depression and anxiety. We discussed his medications, he stated that he was sleeping well at night on Seroquel 400 mg, however during the day he was still feeling anxious. Together we decided that he could take gabapentin 4 times daily on a schedule, and Seroquel 50 mg 3 times daily on a schedule, in addition to bedtime Seroquel. Patient stated that he believed that this schedule would work for him. As per nursing report, patient continues medication seeking activities, often hovering around the med room. He has been rude to staff members and other patients. Reports that his depression and anxiety are "terrible." Denies suicidal ideation, auditory hallucinations, visual hallucinations. States that he has suicidal thoughts "all day long." Continues to have intermittent hallucinations of a "box" which he is working on. States he sleeps well at night, has not had nightmares since starting prazosin 1 mg at bedtime. Reports that his appetite is good. Speech is well articulated, goal-directed, average in rate, volume and tone. The patient understands the risks/benefits/side effects of the medication and is agreeable to continue taking them. PLAN: Seroquel and gabapentin 3 times daily, along with bedtime dose of each. Continue prazosin for nightmares. Continue with other current management as patient is improving. Continue to provide support and encouragement.
[2016-06-04 16:44] VITALS: BP 129/58
--- NOTE | 2016-06-04 22:01 | NUR ---
PT IS BEING COOPERATIVE WITH STAFF AND PEERS AND IS COMPLIANT WITH UNIT RULES. PT IN [place], INTERACTING WITH PEERS. MOOD IS STABLE, AFFECT IS FULL RANGE, COMMUNICATION IS NORMAL, AND APPETITE IS NORMAL. PT DENIES SI AT THIS TIME.
[2016-06-05 08:14] VITALS: BP 112/66
[2016-06-05 12:15] VITALS: BP 116/58
--- NOTE | 2016-06-05 13:51 | NUR ---
PT IS COMPLIANT AND COOPERATIVE WITH STAFF. PT CAN GET IRRITABLE WHEN SETTING LIMITS OR NOT TAKING CARE OF HIS WANTS RIGHT AWAWY. BE NEEDS REDIRECTON FROM FOUL LANGUAGE AND TALKING BAD ABOUT STAFF. PT IS OUT IN COMMUNITY INTERACTING WITH STAFF AND PEERS. PT IS ATTENDING GROUPS. PT DID SAY HE HAD SI THOUGHTS BUT THEY WERE PASSIVE. DID NOT HAVE A PLAN AND WOULDN'T ACT ON IT.
--- NOTE | 2016-06-05 14:43 | CP SOUTH PROGRESS NOTE PSYCH ---
Psych (Inpt) Progress Note Progress Note Include the following elements, when applicable: Involvement in the active treatment of the patient with behavioral observations of the patient and the patient's response to the treatment. Review of the ongoing treatment process in the context of the treatment plan. Indication of how multi-disciplinary staff members are carrying out the treatment plan. Plans for future interventions and recommendations for revision of the treatment plan. Liaison with other physicians/providers. Progress Note: Notes reviewed, discuss patient progress with nursing staff. Interview patient this morning. He reports his depression is severe, "I've never felt this badly before", says he persistently thinks about suicide, though has no intent or plan to harm himself on the unit. He reports vague hallucinatory phenomena. Asked for increased availability of Seroquel throughout the day for anxiety symptoms. MSE: Poorly groomed man, dressed in T-shirt, no acute distress. Cooperative with interview with limited eye contact. Speech was within normal limits. Mood was "depressed ", affect was constricted, non-labile, tp was perseverative, content focused on depressive symptoms, vague suicidal ideation without stated intent or plan, denies HI, endorses vague auditory hallucinatory phenomena, cognition was grossly intact, insight and judgment were limited. Vitals reviewed and within normal limits. No new laboratory results today. A/P: Ongoing depressive symptoms. Will make available Seroquel 25 mg when necessary during the day and continue to emphasize the importance of nonpharmacologically based coping strategies. Otherwise continue present management as per primary team.
--- NOTE | 2016-06-05 15:37 | NUR ---
While another patient was acting out Ciro inserted himself into incident. Continued to attempt to provoke incident despite staff direction. Security on unit for other patient spoke with Ciro with apparent effct.
[2016-06-05 15:58] VITALS: BP 123/73
[2016-06-05 20:01] VITALS: BP 132/63
--- NOTE | 2016-06-05 23:38 | NUR ---
PATIENT OUT IN COMMUNITY, MET GOAL TO STAY OFF OF PHONE; STATED HE HAS NOT TALKED TO HIS TODAY EVEN THOUGH HE LOVE HER BUT HE STATED "IT IS BETTER FOR" HIM; HE DENIES S/I AT THIS TIME; HE ATTENDED WRAP UP GROUP.
--- NOTE | 2016-06-06 06:06 | NUR ---
PATIENT SLEPT ALL NIGHT.
[2016-06-06 08:00] VITALS: BP 119/68
--- NOTE | 2016-06-06 11:42 | CP SOUTH PROGRESS NOTE PSYCH ---
Psych (Inpt) Progress Note Progress Note Include the following elements, when applicable: Involvement in the active treatment of the patient with behavioral observations of the patient and the patient's response to the treatment. Review of the ongoing treatment process in the context of the treatment plan. Indication of how multi-disciplinary staff members are carrying out the treatment plan. Plans for future interventions and recommendations for revision of the treatment plan. Liaison with other physicians/providers. Progress Note: Notes reviewed, discussed patient progress with nursing staff. Interviewed patient this morning. Presentation largely unchanged since yesterday. He reports ongoing severe depressive symptoms and suicidal thoughts without intent or plan to harm himself. Denies HI. Denies manic or overt psychotic symptoms. MSE: Poorly groomed man, dressed in T-shirt, no acute distress. Cooperative with interview with essentially no eye contact. Speech was within normal limits. Mood was "bad", affect was constricted, non-labile, tp was perseverative, content focused on depressive symptoms, vague suicidal ideation without stated intent or plan, denies HI, endorses vague auditory hallucinatory phenomena, cognition was grossly intact, insight and judgment were limited. Vitals reviewed and within normal limits. No new laboratory results today. A/P: Ongoing depressive symptoms. Continue present management as per primary team.
[2016-06-06 11:59] VITALS: BP 123/67
--- NOTE | 2016-06-06 14:34 | NUR ---
Pt was not visible much in the milieu today. He has been in his bedroom for most of the day, sleeping. Pt did not attend neither Planning Meeting or Focus group. Although, he has been cominmg out for vitals and has been compliant with that. He did eat both his breakfast and lunch, and socialized during that time with his peers. When asked if he has plans to hurt himself, pt stated yes but would not act upon it here. The nurse in charge was informed about this.
[2016-06-06 15:49] VITALS: BP 138/74
--- NOTE | 2016-06-06 19:48 | NUR ---
PT. PLEASANT OUT IN COMMUNITY WITH OTHERS VITALS STABLE. ASKING IF HE IS GOING TO BE DISCHARGED TOMORROW EXPLAINED TO PT. NOT SURE AT THIS TIME, BUT WAS SUPPOSE TO GO LAST TUESDAY SO IT IS A POSSIBLITY.
[2016-06-06 19:51] VITALS: BP 117/50
[2016-06-07 07:53] VITALS: BP 129/77
[2016-06-07 12:45] VITALS: BP 132/76
--- NOTE | 2016-06-07 13:12 | NUR ---
PT HAS BEEN ISOLATIVE AND WITHDRAWN IN ROOM. PT OOB FOR MEALS AND VITALS. PT MOOD IS STABLE WITH A CONSTRICTED AFFECT AND IRRITABLE EDGE. PT EXPRESSED PASSIVE SI DURING 0800 VITALS, STATES THAT HE WILL NOT HURT SELF HERE. PT NOTED TO BE MAKING INAPPROPRIATE REMARKS AT TIMES- CAN BECOME IRRITABLE WHEN REDIRECTED. PT HAS REFUSED GROUPS TODAY. PT HAS SOME INTERACTION WITH PEERS AND STAFF. VITALS ARE STABLE, APPETITE IS GOOD.
--- NOTE | 2016-06-07 15:44 | CP SOUTH PROGRESS NOTE PSYCH ---
Psych (Inpt) Progress Note Progress Note Progress Note: I discussed this patient's progress to date, current mental status, treatment process in the context of the treatment plan, and discharge planning with staff/ team in the daily morning inpatient team meeting. I also met with the patient myself in individual session. A total of 15 minutes was spent with the patient with more than 50% spent in counseling and/or coordination of care. SUBJECTIVE: "I've "all these things going on, I feel safe here. I'm sorry I can 't just get better. There is something wrong upstairs." OBJECTIVE: Current Medications Sig/Clarisa Start time Last Medication Dose Route Stop Time Status Admin Folic Acid 1 MG DAILY 05/28 1356 AC 06/07 PO 0846 Gabapentin 600 MG 0800,1300,1700,2200 06/04 1315 AC 06/07 PO 1238 Hydroxyzine HCl 10 MG Q6-PRN PRN 06/02 1045 AC 06/05 PO 1529 Methadone HCl 60 MG DAILY@0800 06/06 0800 AC 06/07 PO 0846 Multivitamins 1 TAB DAILY 05/28 1356 AC 06/07 PO 0846 Nicotine 7 MG DAILY 05/28 1414 AC 06/07 TOP 0847 Omeprazole 40 MG DAILY AC 05/29 0700 AC 06/07 PO 0846 Prazosin HCl 1 MG AT BEDTIME 06/01 2200 AC 06/06 PO 2126 Quetiapine Fumarate 25 MG Q8P PRN 06/05 1015 AC 06/06 PO 1810 Quetiapine Fumarate 50 MG 0800,1300,1700 06/04 1315 AC 06/07 PO 1238 Quetiapine Fumarate 400 MG AT BEDTIME 06/02 2200 AC 06/06 PO 2127 Sertraline HCl 150 MG DAILY 05/29 1000 AC 06/07 PO 1238 Thiamine HCl 100 MG DAILY 05/28 1356 AC 06/07 PO 0846 Vital Signs Date Time Temp Pulse Resp B/P Pulse O2 O2 Flow FiO2 Ox Delivery Rate 06/07 1245 60 132/76 06/07 0753 96.0 54 129/77 06/06 2125 97.9 67 16 117/50 06/06 1951 97.9 67 117/50 06/06 1549 71 138/74 ASSESSMENT: Patient reports continuing elevated depression and anxiety, continued suicide ideation and continues to have hallucination of "working on a box." States that he's been sleeping well at night, without nightmares. The hallucination has only been seen once in the past 2 days, which is an improvement. He had been seeing this hallucination many times. Patient is very quiet today. Depression:10/10; Anxiety:10/10 (with 10 the worst.) Patient endorses suicidal ideation, auditory hallucinations, visual hallucinations. He denies homicidal ideation or paranoid ideation. Speech is well articulated, goal-directed, average in rate, quiet volume and tone. Sad, depressed mood and affect. A&Ox3. The patient understands the risks/benefits/side effects of the medication and is agreeable to continue taking them. PLAN: Slow progress. Patient continues to call for residential rehabilitation placement. Continue with current management as patient is improving. Continue to provide support and encouragement.
[2016-06-07 16:14] VITALS: BP 116/54
--- NOTE | 2016-06-07 16:16 | SOCIAL WORKER PROG NOTE PSYCH ---
Social Work Progress Note Progress Note Ciro seemed to be having a rough day. Stated he was feeling miserable and having terrible thoughts. Thinking of various ways to "off himself". Received a call from his today. Reports that she was asking him to get an apartment with her and get the boys back. He stated that he doesn't really think he can do that. He keeps talking about not harming her, but thinking of various ways he can cause her the same emotional pain that she has caused him. He shared that he was thinking of seeing her and then when he sees her slitting his throat. Talks about how "fucked up" his thoughts are. Continues to say he needs to get into a program. We called [facility] together and he remains on the wait list, but there are no beds open at this time. He said he tried calling [facility] earlier, but he couldn't get through. Kaiser Williamson from [facility] shared that his court case has been continued to 06/29 in [place].
[2016-06-07 19:51] VITALS: BP 132/66
--- NOTE | 2016-06-07 22:26 | NUR ---
Pt is out in the community constricted affect, irritable and intrusive during day, vital signs are stable appetite is good. Will continue to monitor the pt behavior overnight.
--- NOTE | 2016-06-08 06:40 | NUR ---
PATIENT SLEPT ALL NIGHT.
[2016-06-08 08:16] VITALS: BP 134/70
--- NOTE | 2016-06-08 10:31 | SOCIAL WORKER PROG NOTE PSYCH ---
Social Work Progress Note Progress Note [place] in team meeting that Ciro signed a 3 day paper yesterday to terminate his voluntary status. Javed Dumont APRN and I met with Ciro to discuss how he is feeling today. Ciro stated he was ready to leave. He then went on to say that he was angry with staff here for limiting his sugar intake and upset that the sugar packets were taken away from here, so he thought he'll just leave. In talking about his thought process, it didn't appear that he was looking to leave for the right reasons and apparently was acting out of anger. States nothing has changed with his thoughts and couldn't contract for safety if he were to leave. Stated that he would most likely start drinking. Has no support and would be sitting alone at home. We pointed out that him wanting to leave and signing the paper was inconguent with his presentation yesterday and the things that he continues to say about his SI. He stated he would revoke the paper. He is frustrated with the meds not helping. Javed will be looking at doing a med change todday. Ciro revoked the 3 day paper after the meeting.
--- NOTE | 2016-06-08 11:48 | CP SOUTH PROGRESS NOTE PSYCH ---
Psych (Inpt) Progress Note Progress Note Progress Note: I discussed this patient's progress to date, current mental status, treatment process in the context of the treatment plan, and discharge planning with staff/ team in the daily morning inpatient team meeting. I also met with the patient myself in individual session. A total of 25 minutes was spent with the patient with more than 50% spent in counseling and/or coordination of care. SUBJECTIVE: "I don't know if I would ever be better. I'm obviously not right to go home. I probably would relapse." OBJECTIVE: Current Medications Sig/Clarisa Start time Last Medication Dose Route Stop Time Status Admin Chlorpromazine 25 MG 0800,1300,2200 06/08 1300 UNVr PO Chlorpromazine 25 MG Q6PRN PRN 06/08 1145 UNVr PO Folic Acid 1 MG DAILY 05/28 1356 AC 06/08 PO 0901 Gabapentin 600 MG 0800,1300,1700,2200 06/04 1315 AC 06/08 PO 0901 Hydroxyzine HCl 10 MG Q6-PRN PRN 06/02 1045 AC 06/05 PO 1529 Methadone HCl 60 MG DAILY@0800 06/06 0800 AC 06/08 PO 0901 Multivitamins 1 TAB DAILY 05/28 1356 AC 06/08 PO 0902 Nicotine 7 MG DAILY 05/28 1414 AC 06/08 TOP 0902 Omeprazole 40 MG DAILY AC 05/29 0700 AC 06/08 PO 0719 Prazosin HCl 1 MG AT BEDTIME 06/01 2200 AC 06/07 PO 2119 Quetiapine Fumarate 25 MG Q8P PRN 06/05 1015 DC 06/08 PO 1121 Quetiapine Fumarate 50 MG 0800,1300,1700 06/04 1315 DC 06/08 PO 0901 Quetiapine Fumarate 400 MG AT BEDTIME 06/02 2200 DC 06/07 PO 2120 Sertraline HCl 150 MG DAILY 05/29 1000 AC 06/08 PO 0901 Thiamine HCl 100 MG DAILY 05/28 1356 AC 06/08 PO 0902 Vital Signs Date Time Temp Pulse Resp B/P Pulse O2 O2 Flow FiO2 Ox Delivery Rate 06/08 0816 96.8 60 134/70 06/07 2119 61 132/66 06/07 1951 96.4 61 132/66 06/07 1614 64 116/54 06/07 1245 60 132/76 ASSESSMENT: Today I met the patient along with social work faculty member Serenity Gibson Ciro continues to have suicidal ideation, and intermittent visual hallucinations. Continuing depression. States he was feeling better at [facility] when he was on both Thorazine and Seroquel. Here we discontinued the Thorazine and was just taking Seroquel. He had signed a three-day paper yesterday afternoon after a verbal altercation with staff over his overuse of sugar. Today states that he will rescind the three-day paper. He continues to call programs for residential rehabilitation. Depression:02/22; Anxiety:02/22 (with 10 the worst.) Patient denies homicidal ideation and paranoid ideation. He continues to complain of racing thoughts and suicidal ideation, along with intermittent visual hallucinations of a "box" that he is working on. Speech is well articulated, goal-directed, average in rate, volume and tone. Sad, depressed affect and mood. Alert and oriented 3. The patient understands the risks/benefits/side effects of the medication and is agreeable to continue taking them. PLAN: Discontinue Seroquel as suicidal ideation, racing thoughts and hallucinations continue. Initiate Thorazine for the above symptoms. Continue with other current management. Continue to provide support and encouragement.
[2016-06-08 13:44] VITALS: BP 123/70
--- NOTE | 2016-06-08 14:10 | NUR ---
PT WAS VISIBLE IN THE [place] TODAY. HIS GOAL TODAY WAS "TO TALK TO THE DOCTOR ABOUT DISCHARGE". HE HAS BEEN VISIBLE IN THE [place], PARTICIPATING IN GROUPS AND INTERACTING WELL WITH HIS PEERS. PT HAS BEEN COOPERATIVE WITH STAFF DIRECTION. WHEN ASKED PT DENIES THOUGHTS OF HURTING HIMSELF
[2016-06-08 16:21] VITALS: BP 123/55
[2016-06-08 20:10] VITALS: BP 129/58
--- NOTE | 2016-06-08 23:35 | NUR ---
Patient became irrate when asked if he smoked also. Patient said emphatically "No". Patient was posturing toward staff and asked to sign a 3 day paper, and complied. Patient was redirected to proper unit behavior, and continued to say "i'm out of here tomorrow!" Patient reports shooting up heroin in [place] during a previous admission, and he "would admit for fuckin' smokin" Patient educated to unit rule and enforcement of these rules by staff. Patient able to settle self down, and retired to room and bed.
[2016-06-09 08:08] VITALS: BP 133/79
--- NOTE | 2016-06-09 11:30 | SOCIAL WORKER PROG NOTE PSYCH ---
Social Work Progress Note Progress Note Ciro met with Jeff Flores APRN (nurse), and myself today to discuss his behavior on the unit. Ciro stated he had a difficult night last night with Vicky (nurse) due to feeling accused of collaborating with another peer who was caught smoking. Ciro stated he wasn't smoking and didn't feel respected and so he got defensive and argumentative. We talked about the importance of being respectful to people on the unit and to avoid the people that he feels don 't like him. Talked about the incident where he was making loud noises in the afternoon that were disruptive to others and startling. He apologized and stated that he was "being immature" and showing off infront of a friend. He stated he would work on his behavior. Ciro put in another 3 day paper to terminate his voluntary status last night, which will be up on Tuesday night. I talked about the mixed messages he sends when he does this and then tells us that he has suicidal thoughts and can't contract for safety outside of the hospital. He agreed that he feels "mixed up" in his head. He wants and states he needs to go to a program, but then at times feels he should just be able to go home and "put on his big boy pants" and wait for a program there. He didn't sleep well last night. Javed will be adding some Benadryl for sleep. Ciro took all of the Thorazine PRN's yesterday and so Javed will also look at increasing his Thorazine dose today. Talked about the importance of having all of his options for rehab open and that he should agree for me to the an referral to [facility]. Ciro was in agreement to do the referral. Reminded him to call [facility] every day and to check in with Adalberto Zazueta. We agreed to evaluate tomorrow and see how he is doing. He denied seeing any hallucinations yesterday or today thus far.
--- NOTE | 2016-06-09 12:06 | NUR ---
PT ATTENDED GROUPS TODAY AND STATED HE WANTED TO BE A BETTER PERSON AND HE IS THINKING [place]. HE IS COMPLIANT WITH HIS MED REGIME AND WHEN ASKED HE DENIED ANY SUICIDAL THOUGHTS
[2016-06-09 12:21] VITALS: BP 137/77
[2016-06-09 15:53] VITALS: BP 120/72
--- NOTE | 2016-06-09 16:05 | CP SOUTH PROGRESS NOTE PSYCH ---
Psych (Inpt) Progress Note Progress Note Progress Note: I discussed this patient's progress to date, current mental status, treatment process in the context of the treatment plan, and discharge planning with staff/ team in the daily morning inpatient team meeting. I also met with the patient myself in individual session. A total of 25 minutes was spent with the patient with more than 50% spent in counseling and/or coordination of care. SUBJECTIVE: "The Thorazine during the day helped. I had moments of clarity." OBJECTIVE: Current Medications Sig/Clarisa Start time Last Medication Dose Route Stop Time Status Admin Chlorpromazine 25 MG 0800,1300,1500,2200 06/09 1300 AC 06/09 PO 1215 Chlorpromazine 25 MG 0800,1300,2200 06/08 1300 DC 06/09 PO 0800 Chlorpromazine 25 MG Q6PRN PRN 06/08 1145 AC 06/08 PO 2232 Diphenhydramine HCl 50 MG AT BEDTIME 06/09 2200 AC PO Folic Acid 1 MG DAILY 05/28 1356 AC 06/09 PO 0759 Gabapentin 600 MG 0800,1300,1700,2200 06/04 1315 AC 06/09 PO 1215 Hydroxyzine HCl 10 MG Q6-PRN PRN 06/02 1045 AC 06/05 PO 1529 Methadone HCl 60 MG DAILY@0800 06/06 0800 AC 06/09 PO 0759 Multivitamins 1 TAB DAILY 05/28 1356 AC 06/09 PO 0759 Nicotine 7 MG DAILY 05/28 1414 AC 06/09 TOP 0800 Omeprazole 40 MG DAILY AC 05/29 0700 AC 06/09 PO 0759 Prazosin HCl 1 MG AT BEDTIME 06/01 2200 AC 06/08 PO 2119 Sertraline HCl 150 MG DAILY 05/29 1000 AC 06/09 PO 0759 Thiamine HCl 100 MG DAILY 05/28 1356 AC 06/09 PO 0759 Vital Signs Date Time Temp Pulse Resp B/P Pulse O2 O2 Flow FiO2 Ox Delivery Rate 06/09 1221 70 137/77 06/09 08 97.8 62 133/79 06/08 2118 97.3 68 16 129/58 06/08 2009 97.3 68 129/58 06/08 1621 65 123/55 ASSESSMENT: Patient reports feeling better during the day after switching from Seroquel to Thorazine yesterday afternoon. States however that he did not sleep well. He requests to have Benadryl added at bedtime. Today I met the patient along with LUCILLE Shetty and Jerome RN. Nursing staff has been concerned with the patient's provocative and vulgar speech and behavior on the unit. Patient verbalized understanding, apologized, and promised to act in a more cooperative fashion. We discussed discharge planning, and patient continues to state that he would like to attend residential rehabilitation. He reports continuing depression and anxiety, however somewhat better now that he is taking Thorazine. Denies homicidal ideation, auditory hallucinations, visual hallucinations, paranoid ideation. Reports that he has not had his "box" hallucinations since yesterday. When asked about suicidality, he stated "I'm mixed up. I have to do what I need to do to get my kids back." Speech is well articulated, goal-directed, average in rate, volume and tone. The patient understands the risks/benefits/side effects of the medication and is agreeable to continue taking them. PLAN: Continue Thorazine as it appears to be helping with mood, anxiety, and hallucinations. He did not appear sedated this morning. Add one extra dose of Thorazine 25 mg during the day. Add Benadryl at night for sleep. Patient continues to call [facility] daily, and to be in contact with residential rehabilitation. Continue with current management as patient is improving. Continue to provide support and encouragement.
[2016-06-09 20:24] VITALS: BP 126/72
--- NOTE | 2016-06-09 21:39 | NUR ---
PT IS VISIBLE ON UNIT, SOCIALIZING WITH PEERS AND STAFF. COOPERATIVE AND COMPLIANT WITH STAFF. AT TIMES PT IS INAPPROPRIATE IN CONVERSATION AND REQUIRES REDIRECTION. ATTENDED WRAP UP MEETING. NO COMPLAINTS OR SI REPORTED. PT HAS A STABLE MOOD AND FULL RANGE AFFECT.
[2016-06-10 07:56] VITALS: BP 137/75
[2016-06-10 13:18] VITALS: BP 135/77
--- NOTE | 2016-06-10 13:21 | SOCIAL WORKER PROG NOTE PSYCH ---
Social Work Progress Note Progress Note Javed Dumont APRN and I met with Ciro this morning to review how things are today. Ciro reports his "ups and downs". Stated he had 1 hallucination of the box yesterday. Feels he may need an increase in medication for at night. Javed will increase Thorazine. Talked about feeling hyper at times, which only last for a few minutes. States he acts out more and gets in trouble at these times. SI comes and goes. Talked about wanting to get connected to AA when he leaves. He has never committed to AA before, but feels it may be what he needs right now. He doesn't have a support system in the community. He was give a list of rehabs and told to call to check on his status at the rehabs where he has been referred. He was interested in looking into [facility] due to hearing that his peer may be going there. I told him to ask about insurance and waiting lists. Ciro continues to have a 3 day paper in, which expires on Tuesday. Told him we will see where things stand tomorrow in terms of discharge. Expresses some forward thinking about getting his sons back and starting his life over. He will need to find a new apartment eventually. He is being kicked out of the current apartment.
--- NOTE | 2016-06-10 13:38 | NUR ---
PT IS COMPLIANT AND COOPERATIVE. MOOD IS STABLE WITH A CONSTRICTED AFFECT- PT HAS AN IRRITABLE EDGE. PT USING LESS PROFANITY/INAPPROPRIATE STATEMENTS. PT DENIES SI AT THIS TIME, NO COMPLAINTS OFFERED. PT IS PRESENT ON THE UNIT AND INTERACTING WITH PEERS AND STAFF. PT IS ATTENDING SOME GROUPS. VITALS ARE STABLE, APPETITE IS GOOD.
[2016-06-10 16:07] VITALS: BP 111/63
--- NOTE | 2016-06-10 17:02 | CP SOUTH PROGRESS NOTE PSYCH ---
Psych (Inpt) Progress Note Progress Note Progress Note: I discussed this patient's progress to date, current mental status, treatment process in the context of the treatment plan, and discharge planning with staff/ team in the daily morning inpatient team meeting. I also met with the patient myself in individual session. A total of 25 minutes was spent with the patient with more than 50% spent in counseling and/or coordination of care. SUBJECTIVE: "My thoughts are not as constant. I'm a little better. I get hyper , but it only lasts for a minute." OBJECTIVE: Current Medications Sig/Clarisa Start time Last Medication Dose Route Stop Time Status Admin Chlorpromazine 50 MG AT BEDTIME 06/10 2200 AC PO Chlorpromazine 25 MG 0800,1300,1500 06/10 1300 AC 06/10 PO 1523 Chlorpromazine 25 MG 0800,1300,1500,2200 06/09 1300 DC 06/10 PO 0802 Chlorpromazine 25 MG Q6PRN PRN 06/08 1145 AC 06/10 PO 1644 Diphenhydramine HCl 50 MG AT BEDTIME 06/09 2200 DC 06/09 PO 2136 Folic Acid 1 MG DAILY 05/28 1356 AC 06/10 PO 0802 Gabapentin 600 MG 0800,1300,1700,2200 06/04 1315 AC 06/10 PO 1642 Hydroxyzine HCl 10 MG Q6-PRN PRN 06/02 1045 AC 06/10 PO 1420 Methadone HCl 60 MG DAILY@0800 06/06 0800 AC 06/10 PO 0803 Multivitamins 1 TAB DAILY 05/28 1356 AC 06/10 PO 0802 Nicotine 7 MG DAILY 05/28 1414 AC 06/10 TOP 0801 Omeprazole 40 MG DAILY AC 05/29 0700 AC 06/10 PO 0802 Prazosin HCl 1 MG AT BEDTIME 06/01 2200 AC 06/09 PO 2136 Sertraline HCl 150 MG DAILY 05/29 1000 AC 06/10 PO 1008 Thiamine HCl 100 MG DAILY 05/28 1356 AC 06/10 PO 0802 Vital Signs Date Time Temp Pulse Resp B/P Pulse O2 O2 Flow FiO2 Ox Delivery Rate 06/10 1607 69 111/63 06/10 1318 69 135/77 06/10 0756 97.1 52 137/75 06/09 2136 69 126/72 06/09 2023 97.0 69 126/72 ASSESSMENT: Today I met the patient along with social contact worker Serenity. Patient reports feeling somewhat better. States that he is motivated for sobriety. States "I'm going to rebuild my life from the ground up. I want to get my kids back. I have positive thoughts. My biggest problem is liquor, I'm committed to going to AA." Depression:11/22; Anxiety:11/22 (with 10 the worst.) Denies homicidal ideation, auditory hallucinations, visual hallucinations, paranoid ideation. States that suicidal thoughts are becoming less frequent, "they come and go. It 's been getting better." States that the "box" hallucination only happened one time yesterday. States that the hallucination is appearing much less frequently. Continues to report not sleeping well at night. His appetite is fine. Speech is well articulated, goal-directed, average in rate, volume and tone. Alert and oriented 3. Logical. The patient understands the risks/benefits/side effects of the medication and is agreeable to continue taking them. PLAN: Discontinue Benadryl, it was not helpful last night for sleep. Increase bedtime Thorazine. Continue with current management as patient is improving. Continue to provide support and encouragement.
[2016-06-10 19:42] VITALS: BP 130/70
--- NOTE | 2016-06-10 23:19 | NUR ---
EVENING NOTE- PT IS STABLE WITH FULL RANEG OF AFFECT. VISIBLE WITHIN THE COMMUNITY AND INTERACTING WITH PEERS/PT. PT OFTEN REQUIRES REDIRECTION DUE TO INAPPROPRIATE COMMENTS. PT ATTENDED WRAP UP AND WAS INVOLVED IN THE DISCUSSION. VS ARE STABLE. DENIES ANY SI/HI TO THIS MHW.
--- NOTE | 2016-06-11 04:34 | NUR ---
SLEPT WELL WITH NO COMPLAINTS.
[2016-06-11 07:36] VITALS: BP 148/91
--- NOTE | 2016-06-11 09:55 | SOCIAL WORKER PROG NOTE PSYCH ---
Social Work Progress Note Progress Note Met with Ciro this morning. He was up and dressed, ready to have breakfast. He stated he is feeling better, denies having any SI/HI, no psychosis. He rates his depression 0/10 (worse):5 and anxiety 0/10: 4. Ciro stated he didn't sleep well last night, was up at 4am. He stated he wants to go to a residential rehab and has been calling [facility], [place], [facility] and [facility]. Encouraged him to call again. Discussed alternative discharge plan to go to IOP at [facility] , and attend AA meetings (as many as possible daily, weekly). Ciro stated he met a alysia in AA on the unit last night, Alejo, who encouraged Ciro to call him and he could help Ciro get to meetings. Suggested Ciro call him daily just to check in and practice making a connection to someone in AA. Ciro wants to discharge on Tuesday, he stated he will call [facility] to arrange his transportation to and from [facility] for IOP and Methadone.
--- NOTE | 2016-06-11 10:40 | SOCIAL WORKER PROG NOTE PSYCH ---
Social Work Progress Note Progress Note Ciro had a phone screening today with Yamile from [facility]. Ciro reports he was accepted there.
[2016-06-11 12:21] VITALS: BP 118/70
--- NOTE | 2016-06-11 13:02 | NUR ---
PT WAS VISIBLE IN THE [place] TODAY. HE HAS BEEN PARTICIPATING IN BOTH PLANNING MEETING AND FOCUS GROUP. PT HAS BEEN INTERACTING WITH HIS PEERS. ON THE PHONE HOWEVER, PT NEEDED SOME REDIRECTION BY STAFF TO LOWER HIS VOICE, OTHERWISE HE HAS BEEN COOPERATIVE. PT DENIES WANTING TO HURT HIMSELF WHEN ASKED
[2016-06-11 15:42] VITALS: BP 132/80
--- NOTE | 2016-06-11 16:55 | CP SOUTH PROGRESS NOTE PSYCH ---
Psych (Inpt) Progress Note Progress Note Progress Note: I discussed this patient's progress to date, current mental status, treatment process in the context of the treatment plan, and discharge planning with staff/ team in the daily morning inpatient team meeting. I also met with the patient myself in individual session. A total of 15 minutes was spent with the patient with more than 50% spent in counseling and/or coordination of care. OBJECTIVE: Current Medications Sig/Clarisa Start time Last Medication Dose Route Stop Time Status Admin Chlorpromazine 50 MG 0800,1500 06/12 0800 AC PO Chlorpromazine 100 MG AT BEDTIME 06/11 2200 AC PO Chlorpromazine 50 MG AT BEDTIME 06/10 2200 DC 06/10 PO 2126 Chlorpromazine 25 MG 0800,1300,1500 06/10 1300 DC 06/11 PO 1448 Chlorpromazine 25 MG Q6PRN PRN 06/08 1145 AC 06/11 PO 0919 Folic Acid 1 MG DAILY 05/28 1356 AC 06/11 PO 0745 Gabapentin 600 MG 0800,1300,1700,2200 06/04 1315 AC 06/11 PO 1628 Hydroxyzine HCl 10 MG Q6-PRN PRN 06/02 1045 AC 06/11 PO 1127 Methadone HCl 60 MG DAILY@0800 06/06 0800 AC 06/11 PO 0747 Multivitamins 1 TAB DAILY 05/28 1356 AC 06/11 PO 0745 Nicotine 7 MG DAILY 05/28 1414 AC 06/11 TOP 0745 Omeprazole 40 MG DAILY AC 05/29 0700 AC 06/11 PO 0745 Prazosin HCl 1 MG AT BEDTIME 06/01 2200 AC 06/10 PO 2126 Sertraline HCl 150 MG DAILY 05/29 1000 AC 06/11 PO 0745 Thiamine HCl 100 MG DAILY 05/28 1356 AC 06/11 PO 0745 Vital Signs Date Time Temp Pulse Resp B/P Pulse O2 O2 Flow FiO2 Ox Delivery Rate 06/11 1542 62 132/80 06/11 1221 65 118/70 06/11 0736 97.0 60 148/91 06/106 65 130/70 06/10 1942 97.5 65 130/70 ASSESSMENT: Patient reports symptoms of racing thoughts, depression, anxiety, and suicidal ideation are much improved today. States "I'm making progress." He is hopeful that he will soon get a bed in a rehabilitation facility. Tolerating his medications well. States that he feels that he needs a higher dose of Thorazine for sleep at night, and continuing symptoms. States he has not seen his "box" hallucination today. Depression:5/10; Anxiety:3/10 (with 10 the worst.) Denies homicidal ideation, auditory hallucinations, visual hallucinations, paranoid ideation. States that his suicidal thoughts are much better, "not really, not like it was. " He believes that he is improving. Reports only sleeping 4-5 hours at night. His appetite is good. Speech is well articulated, goal-directed, average in rate, volume and tone. Alert and oriented 3. Logical. The patient understands the risks/benefits/side effects of the medication and is agreeable to continue taking them. PLAN: Increase Thorazine to 100 mg at bedtime, and 50 mg twice during the day. PRN doses continue. Anticipate discharge on Tuesday. Continue with other current management as patient is improving. Continue to provide support and encouragement.
[2016-06-11 19:53] VITALS: BP 122/66
--- NOTE | 2016-06-11 21:22 | NUR ---
PT IS STABLE WITH FULL RANGE OF AFFECT AND IRRITABLE. VISIBLE WITHIN THE [facility] AND INTERACTING WITH PEERS/STAFF. PT IS ATTENDING GROUPS AND APPROPRIATE AT TIMES. SOMETIMES REQUIRES REDIRECTION. VS ARE STABLE AND DENIES ANY SI/HI TO THIS MHW.
--- NOTE | 2016-06-12 04:45 | NUR ---
AWAKE TO BATHROOM ONCE.
[2016-06-12 08:19] VITALS: BP 133/87
--- NOTE | 2016-06-12 10:34 | CP SOUTH PROGRESS NOTE PSYCH ---
Psych (Inpt) Progress Note Progress Note Include the following elements, when applicable: Involvement in the active treatment of the patient with behavioral observations of the patient and the patient's response to the treatment. Review of the ongoing treatment process in the context of the treatment plan. Indication of how multi-disciplinary staff members are carrying out the treatment plan. Plans for future interventions and recommendations for revision of the treatment plan. Liaison with other physicians/providers. Progress Note: Stated that he is looking forward to getting out of here on Tuesday, that he has someone to get him to a meeting first thing on discharge. He stated that he can call this person (who can be his sponsor) or his universal winding machine operator when he feels suicidal. Stated that he is not in contact w/ his b/c she is on the run. He is planning on getting in touch w/ his mother so he can get back to seeing his children. Stated that he is not sleeping well wanted benadryl but explained to him it was d/c-ed two days ago b/c not effective. Agreed to have higher dose of hydroxyzine. MSE: middle aged man, overweight, poor grooming and fair hygiene. Less psychomotor slowing and less sedated compared to previous intercations. No movement d/o noted. Adequate eye contact. Affect more full, mood neutral. Thought process linear. No evidence acutely of thoughts to harm self/others; stated that he has people he can go to when he feels this way. No evidence of internal preoccupation or voices. Thought content w/o evidence of any gross delusions. Insight impaired, judgment sufficient. A: 41 y/o man w. hx depressive sx, opioid, alcohol, bz use d/o, antisocial personality traits vs. disorder, presented better related than previous interactions, future oriented, planning on staying sober. c/o insomnia. P: Increase hydroxyzine prn to 25mg q6hrs for agitation/insomnia/anxiety. Continue plan for d/c Tuesday. Will need ongoing education and support for drug abstinence using having children back as major motivator could help.
[2016-06-12 12:48] VITALS: BP 114/68
[2016-06-12 16:02] VITALS: BP 106/86
[2016-06-12 20:22] VITALS: BP 129/75
--- NOTE | 2016-06-12 22:47 | NUR ---
PT IS CALM, COOPERATIVE WITH STAFF AND PEERS, AND COMPLIANT WITH UNIT RULES. PT IS IN ROOM MOST OF THE TIME, OUT OF MILIEU, SLEEPING. PT MOOD IS STABL, AFFECT IS EUTHYMIC TO FULL RANGE, COMMUNICATION IS NORMAL, AND APPETITE IS NORMAL. PT DENIES SI AT THIS TIME.
--- NOTE | 2016-06-13 05:45 | NUR ---
PATIENT WAS UP TO THE BATHROOM ONCE, OTHERWISE SLEPT ALL NIGHT.
[2016-06-13 08:57] VITALS: BP 123/72
--- NOTE | 2016-06-13 11:36 | CP SOUTH PROGRESS NOTE PSYCH ---
Psych (Inpt) Progress Note Progress Note Include the following elements, when applicable: Involvement in the active treatment of the patient with behavioral observations of the patient and the patient's response to the treatment. Review of the ongoing treatment process in the context of the treatment plan. Indication of how multi-disciplinary staff members are carrying out the treatment plan. Plans for future interventions and recommendations for revision of the treatment plan. Liaison with other physicians/providers. Progress Note: Stated that he is not doing too well b/c of a phone call from his . Stated that he is frustrated with the drama with his encouraged him to not to speak w/ his , as have in previous conversations, at least while he is hospitalized. Optimistic about discharge tmr, stated that he will go to a meeting; that he is planning on calling alysia goldman from his program if he feels depressed. Last suicidal thoughts on or Tuesday . MSE: middle aged man, overweight, poor grooming and fair hygiene. No psychomotor slowing/agitation noted. No movement d/o, tics or tremors noted. Avoidant eye contact. Affect constricted, mood somewhat irritated. Thought process linear. No evidence acutely of thoughts to harm self/others; No thought content abnormalities, no delusions elicited. No evidence of internal preoccupation or voices. Insight fair, judgment sufficient. A: 41 y/o man w. hx depressive sx, opioid, alcohol, bz use d/o, antisocial personality traits vs. disorder, with ongoing chronic social stressors w/ family ; no other complaints. P: Increased hydroxyzine prn to 25mg q6hrs for agitation/insomnia/anxiety. Continue plan for d/c Tuesday. Will need ongoing education and support for drug abstinence.
[2016-06-13 12:21] VITALS: BP 139/87
--- NOTE | 2016-06-13 14:22 | NUR ---
PT IS COMPLIANT AND COOPERATIVE. MOOD IS STABLE WITH A CONSTRICTED AFFECT. PT DENIES SI AT THIS TIME, NO COMPLAINTS OFFERED. PT HAS NEEDED LESS REDIRECTION TODAY R/T INAPPROPRIATE LANGUAGE/YELLING. PT IS PRESENT IN THE COMMUNITY AND INTERACTING WELL WITH PEERS AND STAFF. PT IS ATTENDING GROUPS. VITALS ARE STABLE, APPETITE IS GOOD.
[2016-06-13 16:24] VITALS: BP 127/66
[2016-06-13 20:12] VITALS: BP 147/82
--- NOTE | 2016-06-13 21:45 | NUR ---
PT HAS BEEN ISOLATIVE AND WITHDRAWN, REMAINING IN BED FOR MAJORITY OF EVENING. REFUSED WRAP UP MEETING. NO COMPLAINTS OR SI. PT HAS A STABLE MOOD AND FULL RANGE AFFECT.
--- NOTE | 2016-06-14 04:30 | NUR ---
QUIET THIS SHIFT BUT SLEEPING WELL.
[2016-06-14 08:22] VITALS: BP 110/65
[2016-06-14] MEDS ORDERED: HYDROXYZINE HCL25 M2 PO (08:47)
[2016-06-14] MEDS ORDERED: CHLORPROMAZINE25 M2 PO (09:12)
[2016-06-14] MEDS ORDERED: NICOTINE PATCH1 EAC1 TOP (11:08)
[2016-06-14] MEDS ORDERED: MINIPRESS1 MG PO (11:08)
[2016-06-14] MEDS ORDERED: GABAPENTIN300 M2 PO (11:09)
[2016-06-14] MEDS ORDERED: CHLORPROMAZINE HCL PO (11:11)
[2016-06-14] MEDS ORDERED: ONE DAILY MULT1 EAC2 PO (11:13)
--- NOTE | 2016-06-14 11:15 | NUR ---
PT IS SCHEDULED FOR D/C TO [facility] TODAY. HE STATES HIS FOLLOW UP IS WITH [facility]. HE REPORTS AND DEMONSTRATES IMPROVEMENT IN HIS MOOD AND ABILITY TO FUNCTION. PT DENIES ANY THOUGHTS OF SUICIDE OR SELF LINNEA. HE VERBALIZES A GOOD UNDERSTANDING OF HIS MED REGIME AND TREATMENT PLAN. PT IS GIVEN EDUCATION ON MANAGINGHIS DEPRESSION AND ON SUICIDE PREVENTION
--- NOTE | 2016-06-14 11:31 | SOCIAL WORKER PROG NOTE PSYCH ---
Social Work Progress Note Progress Note Ciro said he was ready to go today. He set up his ride to [place] to get his Methadone tomorrow. Talked to him about going to their IOP. He said that he was going to talk to them about it tomorrow. Remains on the waiting list for [facility], [facility], and [facility]. I told Ciro I would fax over his PPD results to [facility] so that they had that. He said he was trying a bunch a programs since his insurance will be changing. Encouraged him to get to an AA meeting [facility]. Asked if he talked to his ? He said the last time they spoke he said they agreed to call not eachother right now. Ciro said he would need a ride from [facility]. Told him I would schedule that for 3pm. Before Ciro left he asked me to send clinical information to [facility]. This was done. Faxed W10 and Patient Health Summary to [place].
[2016-06-14 12:13] VITALS: BP 137/78
--- NOTE | 2016-06-14 13:41 | CP SOUTH PROGRESS NOTE PSYCH ---
Psych (Inpt) Progress Note Progress Note Progress Note: I discussed this patient's progress to date, current mental status, treatment process in the context of the treatment plan, and discharge planning with staff/ team in the daily morning inpatient team meeting. I also met with the patient myself in individual session. A total of 30 minutes was spent with the patient with more than 50% spent in counseling and/or coordination of care. SUBJECTIVE: "I feel better, not great." OBJECTIVE: Current Medications Sig/Clarisa Start time Last Medication Dose Route Stop Time Status Admin Chlorpromazine 50 MG 0800,1500 06/12 0800 AC 06/14 PO 0954 Chlorpromazine 100 MG AT BEDTIME 06/11 2200 AC 06/13 PO 2146 Chlorpromazine 25 MG Q6PRN PRN 06/08 1145 AC 06/13 PO 2242 Folic Acid 1 MG DAILY 05/28 1356 AC 06/13 PO 0820 Gabapentin 600 MG 0800,1300,1700,2200 06/04 1315 AC 06/14 PO 1337 Hydroxyzine HCl 25 MG Q6-PRN PRN 06/12 1030 AC 06/13 PO 2146 Methadone HCl 60 MG 0800 06/14 0800 AC 06/14 PO 0953 Multivitamins 1 TAB DAILY 05/28 1356 AC 06/13 PO 0820 Nicotine 7 MG DAILY 05/28 1414 AC 06/13 TOP 0820 Omeprazole 40 MG DAILY AC 05/29 0700 AC 06/14 PO 0712 Prazosin HCl 1 MG AT BEDTIME 06/01 2200 AC 06/13 PO 2146 Sertraline HCl 150 MG DAILY 05/29 1000 AC 06/14 PO 0953 Thiamine HCl 100 MG DAILY 05/28 1356 AC 06/13 PO 0820 Vital Signs Date Time Temp Pulse Resp B/P Pulse O2 O2 Flow FiO2 Ox Delivery Rate 06/14 1213 65 137/78 06/14 821 96.0 63 110/65 06/13 2145 97.7 68 16 147/82 06/13 2011 97.7 68 147/82 06/13 1624 73 127/66 ASSESSMENT: Patient reports that he feels safe and ready for discharge. Denies suicidal ideation, homicidal ideation, and states that he has not seen the hallucination of the "box" for the past 3 days. States he is still on waiting lists for a residential rehabilitation bed, and will continue to pursue this once he is home. Depression:2/10; Anxiety:3/10 (with 10 the worst.) Denies suicidal ideation, homicidal ideation, auditory hallucinations, visual hallucinations, paranoid ideation. Patient states and also believes that he will not kill himself. Reports sleeping intermittently last night. His appetite is good. Speech is well articulated, goal-directed, average in rate, volume and tone. Patient is calm and cooperative. Logical. Alert and oriented 3. The patient understands the risks/benefits/side effects of the medication and is agreeable to continue taking them. PLAN: Discharge to home today. Patient will follow-up at [facility] for IOP treatment and methadone maintenance. Continue with current management as patient is improving. Continue to provide support and encouragement.
--- NOTE | 2016-06-14 13:44 | DISCHARGE SUMMARY REPORT-PSYCH ---
Visit Information Visit Dates/Diagnosis' Admission Date: 05/28/16 Discharge Date: 06/14/16 Reason for Admission: Patient with a history of multiple psychiatric admissions at [facility], was discharged in May from [facility] in [place]. Complains of suicidal ideation, homicidal ideation to estranged , without intent or plan to harm her. Patient has a history of chronic drug and alcohol abuse. Recent stressors include his children being in DCF custody, financial difficulties, and separation from his . Psy Discharge Primary Diag: Unspecified depressive d/o. Psy Discharge Secondary Diag: EtOH use d/o; Opioid use d/o, Stimulant use d/o. Hospital Course Significant Lab Findings: Lab TSH 2.980 uIU/mL 06/03/16 0704 Methadone Screen > 735 NG/ML H 05/26/16 1625 U Benzodiazepines Scrn > 800 NG/ML H 05/26/16 1625 Urine Cocaine Screen > 1000 NG/ML H 05/26/16 1625 Urine Opiates Screen > 4000.00 NG/ML H 05/26/16 1625 Course Complications: Patient was seen by cardiology, and a cardiogram was performed. Please refer to cardiology notes, and an event note by Alin Mclain MD for further information. Consultations: The patient was seen for admission history and physical by Dr. Russell. Please refer to her note for additional information. Patient was seen by Dr. Adams for cardiology consult. Please refer to his note for additional information. Allergies: Coded Allergies: haloperidol (From HALDOL) (Mild, HIVES 07/10/15) shellfish derived (Mild, HIVES - SEAFOOD HIVES 07/21/15) latex (03/24/16) UPON ADMISSION 03/22/16, PT SAID HE HAD LATEX ALLERGY. TODAY PT SAID "I DON'T KNOW. MAYBE." Hospital Course/TX Response: The patient was monitored on the unit for depression, suicidal and homicidal ideation, auditory and visual hallucinations. He participated in multimodal treatments on the unit. He was medicated with Thorazine for anxiety, disorganized and confused thought process, auditory and visual hallucinations. He was also medicated with Zoloft for depression, and Neurontin for anxiety, prazosin for nightmares. He reported tolerating these medications well, to good effect. Today, the day of discharge, he reports that he feels safe and ready for discharge. Denies suicidal ideation, homicidal ideation, and states that he has not seen the hallucination of the "box" for the past 3 days. States he is still on waiting lists for a residential rehabilitation bed, and will continue to pursue this once he is home. Depression:2/10; Anxiety:3/10 (with 10 the worst.) Denies suicidal ideation, homicidal ideation, auditory hallucinations, visual hallucinations, paranoid ideation. Patient states and also believes that he will not kill himself. Reports sleeping intermittently last night. His appetite is good. Speech is well articulated, goal-directed, average in rate, volume and tone. Patient is calm and cooperative. Logical. Alert and oriented 3. The patient understands the risks/benefits/side effects of the medication and is agreeable to continue taking them. Patient reports tolerating his medications well, without complaint. States he feels safe and ready for discharge. Discharge HBIPS - Tobacco Use Treatment Offered Post DC Medications Offered: Script Given-See Med List Post DC Tobacco Treatment Plan: [facility] Program Appt Date: 06/23/16 Program Appt Time: 1600 - EtOH/Drug Use D/O Treatment Offered Post DC Medications Offered: Ref Med EtOH/Drug Use D/O Post DC EtOH/SubAbuse TX Plan: Other SubAbuse/Dual Pgm ([facility] in [place]) Program Appt Date: 06/15/16 Program Appt Time: 0800 Metabolic Screening - Screen if on a Neuroleptic Medication - Metabolic screening should include: - Blood Pressure, BMI, Glucose or Hgb A1c, & a - Lipid profile from within the past 365 days. Metabolic Screening () Not Applicable, patient not on a neuroleptic. OR (x) Patient on a neuroleptic(s) . Enter below results for Glucose or Hemoglobin A1C, and lipid panel if obtained during the last 365 days. BMI: 36.000 Blood Pressure: 137/78 Laboratory Results (If applicable): Lab Cholesterol 199 MG/DL 06/03/16 0704 Cholesterol/HDL Ratio 5 % H 06/03/16 07 HDL Cholesterol 39 mg/dL L 06/03/16 0704 Hemoglobin A1c 5.3 06/03/16 07 LDL Cholesterol, Calc ND mg/dL 06/03/16 07 Triglycerides 750 mg/dL H 06/03/16 0704 Discharge Instructions General Discharge Information Discharge Medications: Discharge Medications- (Dose, route, freq, indication): START taking these NEW Home Medications: Nicotine (Nicotine Dose: On the skin, DAILY for Qty: 30 Called in to Patch) 7 MG/24 HOUR 7 Milligram SMOKING CESSATION Refills: 0 Pharm 1 PATCH.TD24 Last Taken:06/13/16 Time:0830 Prazosin Dose: ORAL, AT BEDTIME for Qty: 14 Called in to Hydrochloride 1 Milligram NIGHTMARES Refills: 0 Pharm 1 (Minipress) 1 MG Last Taken:06/13/16 CAPSULE Time:214 Gabapentin Dose: ORAL, Qty: 56 Called in to (Gabapentin) 300 MG 600 Milligram 0800,1300,1700,2200 for Refills: 0 Pharm 1 CAPSULE ANXIETY Last Taken:06/14/16 Time:1000 Chlorpromazine HCl Dose: ORAL, EVERY 6 HOURS Qty: 28 Called in to (Chlorpromazine HCl) 25 Milligram NEEDED as needed for Refills: 0 Pharm 1 25 MG TABLET ANXIETY/JITTERY/TREMOR/IN OMNI TAKE ONE TAB, UP TO TWICE A DAY, NEEDED FOR ANXIETY. [Chlorpromazine HCl] Dose: ORAL, 0800,1500,2200 for Qty: 56 Called in to 50 MG TAB 50 Milligram CLEAR THOUGHTS Refills: 0 Pharm 1 TAKE ONE TAB AT 8AM, AND 3PM. TAKE TWO TABS AT BEDTIME. Last Taken:06/14/16 Time:1000 Hydroxyzine HCl Dose: ORAL, EVERY 6 HOURS Qty: 42 Called in to (Hydroxyzine HCl) 25 25 Milligram NEEDED as needed for Refills: 0 Pharm 1 MG TABLET ANXIETY Multivitamin (One Dose: ORAL, DAILY for Qty: 30 Called in to Daily Multivitamin) 1 Tablet SUPPLEMENT Refills: 0 Pharm 1 1 EACH TABLET Last Taken:06/13/16 Time:0830 CONTINUE taking these Home Medications: Methadone HCl (Methadone Dose: ORAL, DAILY for MENTAL HCl) 10 MG/5 ML SOLUTION 60 Milligram HEALTH Last Taken:06/14/16 Time:1000 Esomeprazole (Nexium) 40 Dose: ORAL, DAILY for GI MG CAPSULE.DR 1 Capsule Last Taken:06/14/16 Time:0700 Sertraline HCl Dose: ORAL, DAILY for MENTAL (Sertraline HCl) 100 MG 1.5 Tablet HEALTH TABLET Last Taken:06/14/16 Time:1000 STOP taking these DISCONTINUED Home Medications: Alprazolam (Alprazolam) 2 MG Dose: ORAL, THREE TIMES DAILY for TABLET 1 Tablet ANXIETY Reason Stopped: Per Doctor Decision Dextroamphetamine/Amphetamine Dose: ORAL, TWICE DAILY for MENTAL (Dextroamp-Amphetamin 20 MG 1 Tablet HEALTH Tab) 20 MG TABLET Reason Stopped: Changed to different med Quetiapine Fumarate Dose: ORAL, TWICE DAILY for MENTAL (Quetiapine Fumarate) 100 MG 1 Tablet HEALTH TABLET Reason Stopped: Changed to different med Hydroxyzine Pamoate (Vistaril) Dose: ORAL, TWICE DAILY for ANXIETY 25 MG CAPSULE 1 Capsule Reason Stopped: Changed to different med Hydroxyzine Pamoate (Vistaril) Dose: ORAL, Every night for ANXIETY 25 MG CAPSULE 2 Capsule Reason Stopped: Changed to different med Quetiapine Fumarate (Seroquel Dose: ORAL, Every night for MENTAL XR) 150 MG TAB.ER.24H 1 Tablet HEALTH Reason Stopped: Changed to different med Alprazolam (Alprazolam) 0.25 Dose: ORAL, THREE TIMES A DAY MG TABLET 1 Tablet NEEDED for ANXIETY Reason Stopped: Per Doctor Decision 1: [facility] [place], [address] [place] [id number] Your Preferred Pharmacy [facility] [address] [place] [address] Multiple Neuroleptics: ([x]) Not Applicable OR Document below three failed attempts at monotherapy, or a plan to taper to monotherapy, or augmentation of Clozapine. () Patient's Diet: Regular Patient's Activity: No restrictions DC Disposition: Patient is returning to his apartment. Recommendations: Patient should follow-up with associate professor of art Dr. Adams. I spoke with the patient on the phone in order to remind him to make this appointment. Follow-up at [facility] for methadone maintenance and medication management. Continue to call [facility], [place], [facility], [facility], and [facility] for residential rehabilitation. Phone numbers have been provided by [employer]. Maintain sobriety. Referred To: Provider Referral Service Date: 06/15/16 Referred To: [[facility]] Notes: [facility] [phone] Appointment 06/15/2016 in the morning. Call associate professor of art Dr. Adams at [facility], [address] [place] [address], [place], [place] Copies To: * *
--- NOTE | 2016-06-14 13:54 | NUR ---
Pt made the goal to "make plans for discharge" in planning meeting today. Pt has plans to be leaving today around 3pm. In the milieu pt has been participating in groups, and interacting with his peers. Pt has been compliant about getting his vitals done, and following direction of staff. When asked pt denies thoughts of self harm.
== END 2016-06-14 14:57 | DRG 881 ==
LOC: ERH 15:25 → ERHI 05-28 12:43 → EDPENDDISTM 05-28 12:43 → CP SOUTH 05-28 12:43 → ENPENDDIS 05-28 12:43 → CP SOUTH 05-28 13:49
PROVIDERS: Emergency Medicine; Nurse Practitioner Psychiatric/Mental Health; Student in an Organized Health Care Education/Training Program; ADMIT Psychiatry & Neurology Psychiatry
DX: F32.9 Major depressive disorder, single episode, unspecified (principal); F11.10 Opioid abuse, uncomplicated; F10.10 Alcohol abuse, uncomplicated; F15.10 Other stimulant abuse, uncomplicated; I51.7 Cardiomegaly; I49.3 Ventricular premature depolarization
CPT/HCPCS: 36415; 80307; 82436; 93005; 93010; 93306; G0463; G0480; J3230; J3490

== ENCOUNTER 2016-06-20 08:10 | Inpatient (IN) | payer OTHER, MEDICARE ==
[~2016-06-20] VITALS: Ht 170.2 cm; Wt 110.2 kg
[~2016-06-20 08:10] MED LIST changes: +ALPRAZOLAM0.25 M1 PO; +CHLORPROMAZINE HCL PO; +CHLORPROMAZINE25 M2 PO; +GABAPENTIN300 M2 PO; +HYDROXYZINE HCL25 M2 PO; +MINIPRESS1 MG PO; +NICOTINE PATCH1 EAC1 TOP; +ONE DAILY MULT1 EAC2 PO
--- NOTE | 2016-06-20 08:13 | ED PSYCHIATRIC COMPLAINT ---
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 Exam Limitations: intoxication Vital Signs & Intake/Output Vital Signs & Intake/Output Vital Signs Date Time Temp Pulse Resp B/P Pulse O2 O2 Flow FiO2 Ox Delivery Rate 06/21 0651 97.2 56 16 111/58 95 Room Air 06/21 0144 97.6 60 20 133/62 96 Room Air 06/20 2245 98.1 67 20 118/54 96 Room Air 06/20 1500 98.9 84 18 130/68 97 Room Air 06/20 1207 98.3 78 18 118/62 98 Room Air ED Intake and Output 06/21 0000 02 1200 Intake Total 60 Output Total Balance 60 Intake, Oral 60 Allergies Coded Allergies: haloperidol (From HALDOL) (Mild, HIVES 07/10/15) shellfish derived (Mild, HIVES - SEAFOOD HIVES 07/21/15) Reconcile Medications Alprazolam 2 MG TABLET 1 TAB PO TID PANIC ATTACKS (Reported) Chlorpromazine HCl 25 MG TABLET 25 MG PO Q6PRN PRN ANXIETY/JITTERY/TREMOR/ INSOMNI TAKE ONE TAB, UP TO TWICE A DAY, NEEDED FOR ANXIETY. [Chlorpromazine HCl] 50 MG TAB 50 MG PO 0800,1500,2200 CLEAR THOUGHTS TAKE ONE TAB AT 8AM, AND 3PM. TAKE TWO TABS AT BEDTIME. Dextroamphetamine/Amphetamine (Dextroamp-Amphetamin 20 MG Tab) (Unknown Strength ) TABLET (Unknown Dose) UNKNOWN (Reported) Esomeprazole (Nexium) 40 MG CAPSULE.DR 1 CAP PO DAILY GI (Reported) Gabapentin 300 MG CAPSULE 600 MG PO 0800,1300,1700,2200 ANXIETY Hydroxyzine HCl 25 MG TABLET 25 MG PO Q6-PRN PRN ANXIETY Methadone HCl 10 MG/5 ML SOLUTION 65 MG PO DAILY MENTAL HEALTH (Reported) Multivitamin (One Daily Multivitamin) 1 EACH TABLET 1 TAB PO DAILY SUPPLEMENT Nicotine (Nicotine Patch) 7 MG/24 HOUR PATCH.TD24 7 MG TOP DAILY SMOKING CESSATION Prazosin Hydrochloride (Minipress) 1 MG CAPSULE 1 MG PO AT BEDTIME NIGHTMARES Quetiapine Fumarate (Seroquel XR) (Unknown Strength) TAB.ER.24H (Unknown Dose) PO QPM unknown (Reported) Sertraline HCl 100 MG TABLET 1.5 TAB PO DAILY MENTAL HEALTH (Reported) Triage Nurses Notes Reviewed? 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 According to the open hearth furnace laborer his hung herself last night. Patient is severely distressed, crying , agitated. Alcohol on board. (MASHA QUISPE MD) Past History Medical History Any Pertinent Medical History? see below for history Neurological: NONE EENT: NONE Cardiovascular: NONE Respiratory: NONE Gastrointestinal: GERD Hepatic: hepatitis C Renal: NONE Musculoskeletal: NONE Psychiatric: alcohol dependence, anxiety, bipolar disease, depression, IV drug abuse, opioid dependence, substance abuse Endocrine: NONE Blood Disorders: NONE Cancer(s): NONE REFUSE DRIVER/Reproductive: NONE ( ) History of MRSA: Yes History of VRE: No History of CDIFF: No Surgical History Surgical History: non-contributory Psychosocial History Who do you live with Patient/Self Services at Home None What is your primary language [place]ese Family History Hx Contributory? No (MASHA QUISPE MD) Review of Systems Review of Systems Constitutional: Reports: see HPI (UNABLE TO OBTAIN). Neurological/Psychological: Reports: emotional problems. (MASHA QUISPE MD) Physical Exam Physical Exam General Appearance: well developed/nourished, alert, awake, anxious, severe distress Head: atraumatic Eyes: Bilateral: PERRL. Ears, Nose, Throat: normal pharynx, hearing grossly normal Respiratory: normal breath sounds Cardiovascular: regular rate/rhythm Gastrointestinal: soft, non-tender Extremities: normal range of motion Neurological/Psychiatric: agitated, alert, anxious, SOBBING Thoughts/Hallucinations: AGITATED SAD PERSONS Done? unobtained due to conditi (MASHA QUISPE MD) Progress Differential Diagnosis: ALCOHOL INTOXICATION, SUICIDALITY Plan of Care: Orders Procedure Date/time Status Regular Diet 06/21 B Active Continuous Observation Monitor 06/21 0809 Active EKG 06/21 0711 Active ED CRISIS PSYCH CONSULT 06/20 1132 Active Laboratory Tests 06/20/16 1500: Urine Opiates Screen 1973.00, Methadone Screen > 735 H, Barbiturate Screen 73, Ur Phencyclidine Scrn < 6.00, Amphetamines Screen 139, U Benzodiazepines Scrn > 800 H, Urine Cocaine Screen > 1000 H, Urine Cannabis Screen > 80.00 H 06/20/16 1119: Anion Gap 14, Estimated GFR > 60, BUN/Creatinine Ratio 10.0, Glucose 80, Calcium 9.0, Total Bilirubin 0.8, AST 58, ALT 55, Alkaline Phosphatase 72, Total Protein 8.2, Albumin 4.6, Globulin 3.6, Albumin/Globulin Ratio 1.3, CBC w Diff NO MAN DIFF REQ, RBC 4.71, MCV 90.5, MCH 30.4, RDW 13.4, MPV 8.2, Gran % 63.4, Lymphocytes % 31.3, Monocytes % 4.2, Eosinophils % 0.6, Basophils % 0.5, Absolute Granulocytes 4.7, Absolute Lymphocytes 2.3, Absolute Monocytes 0.3, Absolute Eosinophils 0, Absolute Basophils 0, PUBS MCHC 33.6, Serum Alcohol 211.0 10:19 AM Patient sleeping. (MASHA QUISPE MD) Hand-Off Endorsed To: TORRI ALEXANDER MD Endorsed Time: 1900 Pending: consult (CRISIS DISPOSITION) (MASHA QUISPE MD) Hand-Off Endorsed To: DUGLAS KELLEY DO Endorsed Time: 0700 Pending: consult (TORRI ALEXANDER MD) Departure Departure Disposition: STILL A PATIENT Condition: Stable Clinical Impression Primary Impression: Polysubstance abuse Secondary Impressions: Suicidal ideation Referrals: PATIENT HAS NO PRIMARY CARE DR (PCP/Family) Departure Forms: Customer Survey General Discharge Information (MASHA QUISPE MD) Departure Comments 06/21/16 9 AM The patient was signed out to me by Dr. Alexander at 7 AM. He is complaining of anxiety. He is pending evaluation by crisis. He was given by mouth Xanax. (DUGLAS KELLEY DO)
--- NOTE | 2016-06-20 08:21 | NUR ---
MEDICATED PER MAR.
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
--- NOTE | 2016-06-20 08:32 | NUR ---
PASTOR KOKO RIOS WOULD LIKE TO BE CONTACTED [phone]
--- NOTE | 2016-06-20 08:36 | NUR ---
PT UNWILLING TO ALLOW VITALS OR BLOOD AT THIS TIME, BUT NOTED THAT MEDS STARTING TO WORK, PT SITTING UP GETTING DROWSY. SITTER WITH PT, SECURITY AT BEDSIDE
--- NOTE | 2016-06-20 08:46 | NUR ---
PT NOTED TO BE ASLEEP AT THIS TIME , REGULAR RESP RATE NOTED. PT WANDED BY SECURITY AND BELONGINGS REMOVED FROM ROOM. SITTER AT BEDSIDE. WILL CONTINUE TO MONITOR
--- NOTE | 2016-06-20 08:54 | NUR ---
(1) one valuables bag given to Pod II RN.
--- NOTE | 2016-06-20 10:24 | NUR ---
FOOD TRAY ORDERED
--- NOTE | 2016-06-20 11:21 | NUR ---
BLOOD DRAWN AND SENT TO LAB. PT AWAKE AND EATING LUNCH. NO COMPLAINTS AT THIS TIME.
[2016-06-20 11:34] LABS: ABSOLUTE BASOPHIL COUNT 0 /CUMM (0.0-0.2); ABSOLUTE EOSINOPHIL COUNT 0 /CUMM (0.0-0.7); ABSOLUTE GRANULOCYTE CT 4.7 /CUMM (1.4-6.5); ABSOLUTE LYMPH COUNT 2.3 /CUMM (1.2-3.4); ABSOLUTE MONOCYTE COUNT 0.3 /CUMM (0.10-0.60); BASOPHIL % 0.5 % (0.0-2.0); EOSINOPHIL % 0.6 % (0-5); GRANULOCYTE % 63.4 % (42.2-75.2); HEMATOCRIT 42.6 % (42-52); MEAN CORPUSCULAR HGB 30.4 PG (27.0-31.0); MEAN CORPUSCULAR HGB CONC 33.6 G/DL (33.0-37.0); MEAN CORPUSCULAR VOLUME 90.5 FL (80.0-94.0); MEAN PLATELET VOLUME 8.2 FL (7.4-10.4); PLATELET COUNT 232 /CUMM (130-400); RBC DISTRIBUTION WIDTH 13.4 % (11.5-14.5); RED BLOOD CELL CT 4.71 /CUMM (4.70-6.10); WHITE BLOOD CELL COUNT 7.4 /CUMM (4.8-10.8)
--- NOTE | 2016-06-20 12:06 | NUR ---
PT CONTINUES TO REST CONMFORTABLY, NO DISTRESS NOTED. WILL CONTINUE TO MONITOR.
--- NOTE | 2016-06-20 14:05 | NUR ---
(1) one clothing bag locked in BH closet
--- NOTE | 2016-06-20 14:57 | NUR ---
PT REQUESTING METHADONE, ATTENDING AWARE.
--- NOTE | 2016-06-20 15:02 | NUR ---
URINE COLLECTED AND SENT
--- NOTE | 2016-06-20 15:18 | NUR ---
UNABLE TO VERIFY HOME MEDS DUE TO CURRENT CIRCUMSTANCES
--- NOTE | 2016-06-20 16:14 | NUR ---
PT MEDICATED WITH METHADONE 60MG PO AND XANAX 2MG PO
[2016-06-20] MEDS ORDERED: ALPRAZOLAM2 M2 PO (16:47)
[2016-06-20] MEDS ORDERED: DEXTROAMP-AMPHE20 MG (16:48)
[2016-06-20] MEDS ORDERED: SEROQUEL XR150 M1 PO (16:50)
--- NOTE | 2016-06-20 18:30 | NUR ---
PT RESTING ON BED IN ROOM. PT CALM AND COOPERATIVE. SITTER PRESENT
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
--- NOTE | 2016-06-20 20:40 | NUR ---
PT CONTINUES TO REST ON STRETCHER. NO APPARENT DISTRESS NOTED. SITTER PRESENT
--- NOTE | 2016-06-21 01:46 | NUR ---
PT MEDICATED WITH XANAX 2MG PO
--- NOTE | 2016-06-21 04:24 | NUR ---
PT SLEEPING. REGULAR RESPIRATIONS NOTED. SITTER REMAINS IN ATTENDANCE.
--- NOTE | 2016-06-21 06:49 | NUR ---
PT SLEEPING AT THIS TIME, OFFERING NO COMPLAINTS. NO DISTRESS NOTED. SITTER IN PLACE FOR SAFETY
--- NOTE | 2016-06-21 07:25 | NUR ---
PT DECLINED EKG AT THIS TIME.
--- NOTE | 2016-06-21 07:29 | NUR ---
PT REFUSING EKG AT THIS TIME. DR. KELLEY AWARE. PT ALSO REQUESTING XANAX. DR. KELLEY WILL SPEAK TO PT ABOUT EKG BEFORE XANAX IS GIVEN.
--- NOTE | 2016-06-21 08:47 | NUR ---
dr. mendoza to speak with pt.
--- NOTE | 2016-06-21 09:01 | NUR ---
PT MEDICATED WITH XANAX PER EMAR AND EKG COMPLETED.
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
--- NOTE | 2016-06-21 11:30 | NUR ---
PT SLEEPING IN ROOM 14. PT AWOKE AND THIS RN INTRODUCED SELF. PT REPORTS THAT HE TAKES METHADONE 60MG/DAY, XANAX 2MG TID AND SEROQUEL. PT REPORTS HE GOES [place] FOR METHADONE. PT CALM AND COOPERATIVE.
--- NOTE | 2016-06-21 13:24 | NUR ---
PT'S VITALS ASSESSED. PT ASKED WHAT THE PLAN WAS FOR HIM AND THIS RN ASKED HIM IF HE FELT HE NEEDED TO BE IN THE HOSPITAL AND THE PT REPLIED "I FEEL LIKE I SHOULD BE IN A GRAVE".
--- NOTE | 2016-06-21 16:00 | NUR ---
PT MEDICATED WITH METHADONE 60MG AND XANAX 2MG
--- NOTE | 2016-06-21 16:41 | NUR ---
PT REPORTS THAT HE WANTS TO LEAVE AND DOESN'T WANT TO WAIT FOR AN "IMAGINARY BED". PT ALSO REQUESTING MORE XANAX.
--- NOTE | 2016-06-21 18:17 | NUR ---
CALLED DIETARY FOR DINNER TRAY
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
[2016-06-22 08:22] VITALS: BP 128/78
[2016-06-22 12:24] VITALS: BP 111/66
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
--- NOTE | 2016-06-22 14:31 | NUR ---
PT WAS IN AND OUT OF THE [facility] TODAY. HE HAS NOT BEEN IN ANY GROUPS TODAY, BUT HAS SOME INTERACTIONS WITH PEERS. PT IS VERY UPSET ABOUT HIS , AND KIDS SITUATION. PT HAS BEEN COMING OUT TO EAT FOR MEALS, AND FOR VITALS. PT DOES HAVE THOUGHTS TO HURT SELF WHEN ASKED, WELL , HOMICIDAL THOUGHTS.
--- NOTE | 2016-06-22 14:43 | NUR ---
PT REPORTED SOME SUICIDAL THOUGHTS BUT NO PLAN TO ACT ON HIS THOUGHTS AND HE FEELS SAFE IN THE HOSPITAL. PT HAS BEEN USING VULGAR LANGUAGE AND SECURITY WAS CALLED X2 TO SPEAK WITH PT ABOUT HIS BEHAVIOR. HE IS DEMANDING MEDS
--- NOTE | 2016-06-22 15:32 | SOCIAL WORKER PROG NOTE PSYCH ---
Social Work Progress Note Progress Note When asked about how he is managing grief around loss of and whether or not this has been confirmed pt reports "that is the least of my problem", it is unclear as to whether or not it is true regarding his wifes . Other than that he states he is upset with the taper of benzos, and is wondering why he is here "CPS", although indicates he rather be "[place] the [place]". Pt is angry.
[2016-06-22 16:40] VITALS: BP 112/49
--- NOTE | 2016-06-22 17:06 | NUR ---
At 1600 vital signs pt reported passive SI, can be attention seeking and provocative, irritable and disrepectful at times to staff and peers, requires redirection and consistant limit setting. Dr. Hill informed of the above and no further orders at this time, all staff aware as well.
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
[2016-06-22 20:22] VITALS: BP 121/71
[2016-06-22 20:35] VITALS: BP 121/71
--- NOTE | 2016-06-22 22:41 | NUR ---
For the most part pt has been withdrawn and isolative to room, out of bed for meds and food, irritable but overall returned back to room.
[2016-06-23] VITALS (9 sets, daily range): BP systolic 113–135; BP diastolic 62–77
--- NOTE | 2016-06-23 04:53 | NUR ---
PT APPEARED TO SLEEP THRU THE NIGHT.
--- NOTE | 2016-06-23 11:33 | NUR ---
PT IS STABLE WITH FLAT AFFECT PT IS IRRITABLE AND CAN BE PROVOCATIVE AT TIMES MAKING STATEMENTS SUCH "I NEED A CHAINSAW TO DO THINGS..." PT IS REMINDED NOT TO BE INAPPROPRIATE BUT OFTEN REQUIRES REDIRECTION. PT ATTENDED GROUPS TODAY AND REPORTED NOT HAVING A GOAL. VS ARE STABLE. PT VERBALIZED SI BUT REPORTED NO PLAN.
--- NOTE | 2016-06-23 15:50 | SOCIAL WORKER TX PLAN PSYCH ---
Treatment Plan - Please Document: - Evidence that there is ongoing collaboration between - the patient and the interdisciplinary team, - including the patient's active participation and - responsibility for engaging in the treatment regimen, - and that the treatment plan is individualized and - relevant to the patient's conditions. - Treatment plan should reflect documentation indicating - that all active therapeutic efforts are included. Strengths/Capabilities: The patient does have good insight continues to seek help Physical Limitations (Interventions): None identified. DSM5/PS Stressors/Medical Prob Diagnosis' (DSM 5, Stressors, Medical): F32.9 Unspecified Depressive D/O, F10.20 Alcohol Use D/O, F11.20 Opiod Use D/O,F14.20 Stimulant Use D/O, Cocaine type Current GAF: 22 Treatment Team - Responsibilities of members of the treatment team include: - Medication Management- MD or SEO CONSULTANT - Medication Administration and Monitoring- Nurse - Group Therapy- Occupational Therapist - 1:1 Therapy,Disch Planning,family involvement-Preliminary School Psychologist
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
--- NOTE | 2016-06-23 21:22 | NUR ---
Patient wrote a provactive note re: +SI and heroin OD. Patient reports he was "just fucking around" Patient educated to severity of writing such statements and to avoid such negativity in his care. Patient dismissive of education and turned to return to sleep. Dr. Prieto notified of note and left for day staff for attention.
--- NOTE | 2016-06-23 21:41 | NUR ---
PT IS LETHARGIC, SLEEPING MAJORITY OF EVENING IN PT ROOM, AWAY FROM MILIEU. PT MOOD IS STABLE, AFFECT IS EUTHYMIC, COMMUNICATION IS NORMAL, AND APPETITE IS NORMAL. PT MADE VERBAL SI DURING 1600 VITALS, DID NOT HAVE A PLAN, STATED HE WOULD NOT CARRY OUT ANY ACTION OF THE SORT ON UNIT. CHARGE NURSE WAS NOTIFIED SUBSEQUENT TO THE EVENT.
--- NOTE | 2016-06-24 05:32 | NUR ---
PT APPEARED TO SLEEP. MINIMAL CIWAs. THERE IS A QUESTION TO WHETHER THE MOTHER OF HIS CHILDREN DID KILL HERSELF. PT REFUSED HS MINI-PRESS.
[2016-06-24 08:01] VITALS: BP 110/76
--- NOTE | 2016-06-24 12:01 | NUR ---
Pt is out of room more so lately and had verbal altercation with medication nurse earlier this morning and would not respond well to redirection attempts and conversational de-escalation, security called to + effect. Pt can become verbally abusive, abrasive and irritable as well as oppositional and defiant, did report yes when asked at 0800 vital signs if there were any thoughts to harm self but would not here in hospital, is safe, Dr. Hill and team aware. Staff is consistent with setting limits and appropriate boundaries to maintain a safe unit, vital signs stable, constricted affect.
[2016-06-24 12:05] VITALS: BP 131/68
[2016-06-24 12:37] VITALS: BP 131/68
--- NOTE | 2016-06-24 13:02 | SOCIAL WORKER PROG NOTE PSYCH ---
Social Work Progress Note Progress Note Pt was watching the fish,a nd I checked in with him, he reports he was looking forward toe ating lunch, he seemed more energetic today, and his affect had more of a range, otherwise, he reports everything is the same. His hygiene is concerning, and was encouraged to shower and groom. I asked pt if he had spoken to his children yet, he stated "not yet, its too hard".
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
[2016-06-24 15:50] VITALS: BP 115/68
[2016-06-24 15:58] VITALS: BP 115/68
--- NOTE | 2016-06-24 21:55 | NUR ---
PT IS LETHARGIC, SLEEPING IN PT ROOM. PT IS NOT INTERACTING MUCH WITH STAFF/PEERS WHEN EMERGENCE INTO MILIEU DOES OCCUR, ACTING WITHDRAWN AND ISOLATIVE THROUGHOUT EVENING. PT MOOD IS STABLE, AFFECT IS EUTHYMIC, COMMUNCATION IS NORMAL BUT SPARSE, AND APPETITE IS NORMAL. PT MADE AN SI COMMENT DURING 1600 VITALS, THOUGH DENIED A PLAN OR WILL TO ATTEMPT TO CARRY OUT ANY ACT ON SUCH COMMENT ON UNIT. CHARGE NURSE WAS NOTIFIED DIRECTLY AFTER COMMENT WAS MADE.
[2016-06-25] VITALS (7 sets, daily range): BP systolic 99–128; BP diastolic 55–69
--- NOTE | 2016-06-25 13:37 | NUR ---
PT BECAME AGITATED AND THREATENING TO OTHER PTS.HE IS LOUD AND USING FOUL LANGUAGE. IT WAS REPORTED TO STAFF THAT PT WAS SAYING INAPPRROPIATE THINGS R/T SHOOTING PEOPLE AND SEXUALLY INAPPROPRIATE COMMENTS TO FEMALE PT. PT ADAMANTLY DENIES SAYING THESE THINGS. SECURITY WAS CALLED AND DR MUNIZ NOTIFIED. PT IS DEMANDING TO LEAVE AT THIS TIME.PT IS GIVEN THORAZINE 100MG PO PRN..WILL MONITOR EFFECT.NURSING OFFICE NOTIFIED OF NEED FOR MALE SITTER. PT DOES DENY SUICIDAL THOUGHTS AT THIS TIME
--- NOTE | 2016-06-25 13:52 | CP SOUTH PROGRESS NOTE PSYCH ---
Psych (Inpt) Progress Note Progress Note Include the following elements, when applicable: Involvement in the active treatment of the patient with behavioral observations of the patient and the patient's response to the treatment. Review of the ongoing treatment process in the context of the treatment plan. Indication of how multi-disciplinary staff members are carrying out the treatment plan. Plans for future interventions and recommendations for revision of the treatment plan. Liaison with other physicians/providers. Progress Note: Case and treatment plan discussed in team meeting. Staff reports that the patient appears lethargic. Can become upset. Isolates in room. Staff had difficulty encouraging patient to have vital signs checked. Reporting suicidal ideation without plan. Patient seen at 11:49 AM. Feels "not good, this is all my fault, this whole thing, this whole world thing. My 's not ." Reports he is sad about his kids. Tearful. States he cannot think, function or right." Complains of voices that are inside his head, 4-5 number, not his own voice. They tell him to kill himself and that he is worthless, that he is lost and to finish it off. Reports visual hallucinations: "the f-ckin' box is back again." Rates sad mood 10/10 and anxiety 8-1010. Feels hopeless, helpless, worthless and guilty. Reports suicidal ideation. Gives a safety promise for here. Reports homicidal thoughts towards one person, [place]. We discussed what would happen if the patient were to kill someone, and he acknowledged that facing skilled nursing would be one possibility. Patient reports his senior painter told him that God said vengeance is his. Describes sleep as comes and goes. Reports appetite fluctuates. Describes energy as very very low. Reoorts having low strength. Tolerating medications. We discussed the possibility of discharge next week. This afternoon, the patient became highly agitated. He apparently made sexually inappropriate remarks to a female peer. He asked for his shoes, wanting to leave. Seems somewhat paranoid. Patient is allergic to Haldol. I ordered Thorazine 100 mg p.o. 1 now. I changed p.r.n. Thorazine dose from 75 mg to 100 mg. Staff believes that the patient is trying to manipulate to get more benzodiazepines. Recent CIWA scores have been 0. IMPRESSION: Slow progress. Continue present treatment plan. Monitor for agitation and AWOL risk. I ordered one-to-one male sitter due to agitation and AWOL risk. Patient continues to require inpatient level of care.
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
--- NOTE | 2016-06-25 20:28 | NUR ---
PT IS STABLE WITH FLAT, DEPRESSED AFFECT. PT SPENT MOST OF EVENING SHIFT IN HIS ROOM SLEEPING. OOB FOR VS, MEDICATIONS, DINNER. DOES NOT ENGAGE WITH STAFF/PEERS OFTEN. HAS BEEN QUIET AND APPROPRIATE THIS SHIFT DESPITE HAVING PERIODS EARLIER IN THE DAY OF INAPPROPRIATE REMARKS. PT REMAINS ON ONE TO ONE MALE SITTER ONLY. VS ARE STABLE. PT REPORTED FEELINGS TO HARM HIMSELF BUT DENIES ANY PLAN WHILE ON THE UNIT.
[2016-06-26] VITALS (8 sets, daily range): BP systolic 119–141; BP diastolic 64–83
--- NOTE | 2016-06-26 05:38 | NUR ---
PT ON 1:1 FOR POSSIBLE BEHAVIORAL REDIRECTION. PT SUDHAKAR. PT APPEARED TO SLEEP.
--- NOTE | 2016-06-26 11:09 | CP SOUTH PROGRESS NOTE PSYCH ---
Psych (Inpt) Progress Note Progress Note Include the following elements, when applicable: Involvement in the active treatment of the patient with behavioral observations of the patient and the patient's response to the treatment. Review of the ongoing treatment process in the context of the treatment plan. Indication of how multi-disciplinary staff members are carrying out the treatment plan. Plans for future interventions and recommendations for revision of the treatment plan. Liaison with other physicians/providers. Progress Note: Pt wanted to speak by the TV. 1:1 within distance of pt. He notes that he did best on a combination of klonopin, methadone, depakote, and atarax and is upset that he is not getting the dosages of BDZ that he would prefer. Denies SI or HI then stated, "I don't know, a little." Denies AVHs but notes they have occured in the past. Current Medications Sig/Clarisa Start time Last Medication Dose Route Stop Time Status Admin Chlorpromazine 100 MG ONCE ONE 06/25 1330 DC 06/25 PO 06/25 1331 1329 Chlorpromazine 100 MG Q4P PRN 06/25 1330 AC 06/26 PO 0925 Chlorpromazine 75 MG Q4P PRN 06/24 1430 DC PO Chlorpromazine 50 MG TID 06/21 2200 AC 06/26 PO 0817 Diphenhydramine HCl 50 MG AT BEDTIME PRN 06/26 1045 AC PO Gabapentin 600 MG FOUR TIMES A DAY 06/21 2100 AC 06/26 PO 0816 Ibuprofen 800 MG Q8P PRN 06/21 0700 AC 06/21 PO 0713 Lorazepam 0.5 MG ONCE 06/27 0000 AC PO 06/27 0001 Lorazepam 0.5 MG Q6H 06/26 0000 AC 06/26 PO 06/26 1801 0651 Lorazepam 0.5 MG ONCE ONE 06/25 1800 DC 06/25 PO 06/25 1801 1811 Lorazepam 1 MG Q6H 06/25 0000 DC 06/25 PO 06/25 1201 1208 Lorazepam 2 MG Q2P PRN 06/22 1515 AC PO Lorazepam 1 MG Q2P PRN 06/22 1515 AC PO Methadone HCl 60 MG DAILY 06/23 1000 AC 06/26 PO 0816 Multivitamins 1 TAB DAILY 06/22 1000 AC 06/25 PO 0915 Nicotine 14 MG DAILY 06/22 1729 AC 06/26 TOP 0817 Omeprazole 40 MG DAILY AC 06/22 0700 AC 06/26 PO 0652 Prazosin HCl 1 MG AT BEDTIME 06/21 2200 AC 06/24 PO 2246 Sertraline HCl 200 MG DAILY 06/26 1000 AC 06/26 PO 0817 Sertraline HCl 50 MG ONCE ONE 06/25 1200 DC 06/25 PO 06/25 1201 1251 Sertraline HCl 150 MG DAILY 06/22 1000 DC 06/25 PO 0913 Vital Signs Date Time Temp Pulse Resp B/P Pulse O2 O2 Flow FiO2 Ox Delivery Rate 06/26 814 97.5 79 119/71 06/26 0801 97.5 73 119/71 06/25 2248 96.2 98 95 99/55 06/25 1953 96.2 98 99/55 06/25 1949 96.7 98 99/55 06/25 1607 96 128/67 06/25 1550 96 128/64 06/25 1232 83 111/69 06/25 1203 83 MSE Appears as stated age. Cooperative behavior, good, appropriate eye contact. Slow speech rate and prosody. + psychomotor retardation. Mood fine Affect slightly irritable, constricted, appropriate, non-liable. Linear and goal directed thought process. Denies SI or HI. Does not appear to be responding to internal stimuli. Denies AVHs, paranoia, or delusions. 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 Concerned for continued inappropriate sexual comments and attempted contact as well as instigation of altercations. As such, will continue the 1:1. - Benadryl 50mg PRN added for sleep - Continue current medication regimen as not significantly sedated
--- NOTE | 2016-06-26 14:03 | NUR ---
PT IS MONITORED ON ONE TO ONE STATUS FOR SAFETY. HE HAS REMAINED CALM THROUGHOUT THIS SHIFT.HE HAD ONE SHORT PERIOD OF IRRITABILITY R/T WANTING MEDICATION THAT IT WAS TOO EARLY TO RECEIVE BUT HE WAS EASY TO REDIRECT. PT REPORTED SOME SUICIDAL THOUGHTS BUT DENIED URGE TO ACT ON THOUGHTS AND FEELS SAFE IN THE HOSPITAL. DR VILLANUEVA NOTIFIED
--- NOTE | 2016-06-26 22:31 | NUR ---
PT IS ISOLATIVE AND WITHDRAWN, REMAINING IN BED FOR MAJORITY OF EVENING. REMAINS ON 1:1 FOR SAFETY. REFUSED WRAP UP MEETING. NO SI REPORTED. PT IS COOPERATIVE AND COMPLIANT WITH STAFF. PT HAS A STABLE MOOD AND IRRITABLE AFFECT.
[2016-06-27] VITALS (7 sets, daily range): BP systolic 106–146; BP diastolic 56–88
--- NOTE | 2016-06-27 09:04 | CP SOUTH PROGRESS NOTE PSYCH ---
Psych (Inpt) Progress Note Progress Note Include the following elements, when applicable: Involvement in the active treatment of the patient with behavioral observations of the patient and the patient's response to the treatment. Review of the ongoing treatment process in the context of the treatment plan. Indication of how multi-disciplinary staff members are carrying out the treatment plan. Plans for future interventions and recommendations for revision of the treatment plan. Liaison with other physicians/providers. Progress Note: Pt notes that slept well but unsure if he took the benadryl (he did not). He expressed frustration about being on 1:1 and denied that he ever did anything wrong at the same time that he accused another pt of "being worse!" Pt notes SI, passive, unchanged from chronic baseline with no active SI or HI. Plans to watch TV for the rest of the day. Current Medications Sig/Clarisa Start time Last Medication Dose Route Stop Time Status Admin Al Hydroxide/Mg 30 ML .STK-MED ONE 06/26 2030 DC Hydroxide PO 06/26 2031 Al Hydroxide/Mg 30 ML ONCE ONE 06/26 2030 DC 06/26 Hydroxide PO 06/26 Chlorpromazine 100 MG Q4P PRN 06/25 1330 AC 06/26 PO 0925 Chlorpromazine 50 MG TID 06/21 2200 AC 06/27 PO 0847 Diphenhydramine HCl 50 MG AT BEDTIME PRN 06/26 1045 AC PO Gabapentin 600 MG FOUR TIMES A DAY 06/21 2100 AC 06/27 PO 0847 Ibuprofen 800 MG Q8P PRN 06/21 0700 AC 06/21 PO 0713 Lorazepam 0.5 MG ONCE 06/27 0000 DC PO 06/27 0001 Lorazepam 0.5 MG Q6H 06/26 0000 DC 06/26 PO 06/26 1801 1920 Lorazepam 2 MG Q2P PRN 06/22 1515 AC PO Lorazepam 1 MG Q2P PRN 06/22 1515 AC PO Methadone HCl 60 MG DAILY 06/23 1000 AC 06/27 PO 0847 Multivitamins 1 TAB DAILY 06/22 1000 AC 06/27 PO 0847 Nicotine 14 MG DAILY 06/22 1729 AC 06/27 TOP 0848 Omeprazole 40 MG DAILY AC 06/22 0700 AC 06/27 PO 0520 Prazosin HCl 1 MG AT BEDTIME 06/21 2200 AC 06/26 PO 2216 Sertraline HCl 200 MG DAILY 06/26 1000 AC 06/27 PO 0847 Laboratory Tests 06/26 2035 Chemistry Potassium (3.5 - 5.1 mmol/L) 4.5 Creatinine (0.7 - 1.2 mg/dL) 0.8 Estimated GFR (>60 ml/min) > 60 Magnesium (1.6 - 2.3 mg/dL) 1.8 Troponin I (<0.11 ng/ml) < 0.01 Vital Signs Date Time Temp Pulse Resp B/P Pulse O2 O2 Flow FiO2 Ox Delivery Rate 06/27 0846 97.3 79 106/62 06/27 0752 97.3 79 106/62 06/266 97.4 84 119/64 06/26 194 97.4 84 119/64 06/26 194 97.4 84 119/64 06/26 1628 80 135/74 06/26 1621 80 135/74 06/26 1238 66 141/83 06/26 1234 66 141/83 MSE Appears as stated age. Cooperative behavior, good, appropriate eye contact. Slow speech rate and prosody. + psychomotor retardation. Mood fine Affect slightly irritable, constricted, appropriate, non-liable. Linear and goal directed thought process. Denies SI or HI. Does not appear to be responding to internal stimuli. Denies AVHs, paranoia, or delusions. 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 Concerned for continued inappropriate sexual comments and attempted contact as well as instigation of altercations. As such, will continue the 1:1. - Benadryl 50mg PRN added for sleep, encouraged pt to take - Continue current medication regimen as not significantly sedated
--- NOTE | 2016-06-27 14:30 | NUR ---
Pt is A&O X 3, compliant with medication but a distraction when in a group therapies. pt continues on 1:1 sitter monitor for behavioral issues, poor boundaries and inappropriate comment. pt continues to reach out for PRN medcation for unspecified s/s found to be more drowsy that usual and isolates in his room on bed rest for most period of the day. Pt denies thought of self-harm and to someone else.
--- NOTE | 2016-06-27 20:27 | NUR ---
PT IS CALM, COOPERATIVE WITH STAFF AND PEERS, AND COMPLIANT WITH UNIT RULES. PT IS MILIEU, THOUGH IS ISOLATIVE AND WITHDRAWN, SPENDING TIME AWAY FROM POPULATION, STAYING BY SELF. PT WILL INTERACT WITH STAFF/PEERS WHEN DIRECTLY ENGAGED. PT MOOD IS STABLE, AFFECT IS EUTHYMIC TO FULL RANGE, COMMUNICATION IS NORMAL, AND APPETITE IS NORMAL. PT DENIES SI AT THIS TIME.
--- NOTE | 2016-06-28 06:48 | NUR ---
PATIENT SLEPT ALL NIGHT WITH 1:1 SITTER MONITORING AT ALL TIMES.
[2016-06-28 07:33] VITALS: BP 126/80
[2016-06-28 08:02] VITALS: BP 126/80
--- NOTE | 2016-06-28 11:05 | NUR ---
Patient's sitter discontinued. Patient in behavioral control
[2016-06-28 12:19] VITALS: BP 118/63
[2016-06-28 12:28] VITALS: BP 118/63
--- NOTE | 2016-06-28 14:49 | NUR ---
PT HAS BEEN COMPLIANT AND COOPERATIVE. PT BEHAVIOR HAS BEEN UNDER CONTROL WITH NO ISSUES. PT HAS BEEN OUT IN COMMUNITY FOR THE MOST PART, ISOLATING AT TIMES. PT MOOD IS STABLE WITH A FLAT AFFECT. PT REPROTS SI THOUGHTS BUT HAS NO PLAN AT THE TIME.
--- NOTE | 2016-06-28 15:48 | CP SOUTH PROGRESS NOTE PSYCH ---
Psych (Inpt) Progress Note Progress Note Progress Note: I discussed this patient's progress to date, current mental status, treatment process in the context of the treatment plan, and discharge planning with staff/ team in the daily morning inpatient team meeting. I also met with the patient myself in individual session. A total of 15 minutes was spent with the patient with more than 50% spent in counseling and/or coordination of care. SUBJECTIVE: "I'm hanging in there. My thoughts are slowing down now that I'm taking 100 mg of Thorazine, which works better. The Benadryl helps me to sleep at night." OBJECTIVE: Current Medications Sig/Clarisa Start time Last Medication Dose Route Stop Time Status Admin Al Hydroxide/Mg 30 ML Q4-6 PRN PRN 06/27 2245 AC 06/28 Hydroxide PO 1359 Al Hydroxide/Mg 30 ML .STK-MED ONE 06/27 2148 DC Hydroxide PO 06/27 2149 Chlorpromazine 100 MG Q4P PRN 06/25 1330 AC 06/28 PO 1014 Chlorpromazine 50 MG TID 06/21 2200 AC 06/28 PO 0748 Diphenhydramine HCl 50 MG .STK-MED ONE 06/27 2202 DC PO 06/27 2203 Diphenhydramine HCl 50 MG AT BEDTIME PRN 06/26 1045 AC 06/27 PO 2208 Gabapentin 600 MG FOUR TIMES A DAY 06/21 2100 AC 06/28 PO 1359 Ibuprofen 800 MG Q8P PRN 06/21 0700 AC 06/21 PO 0713 Lorazepam 2 MG Q2P PRN 06/22 1515 DC PO Lorazepam 1 MG Q2P PRN 06/22 1515 DC PO Methadone HCl 60 MG DAILY 06/23 1000 AC 06/28 PO 0748 Multivitamins 1 TAB DAILY 06/22 1000 AC 06/27 PO 0847 Nicotine 14 MG DAILY 06/22 1729 AC 06/28 TOP 0745 Omeprazole 40 MG DAILY AC 06/22 0700 AC 06/28 PO 0712 Prazosin HCl 1 MG AT BEDTIME 06/21 2200 AC 06/26 PO 2216 Sertraline HCl 200 MG DAILY 06/26 1000 AC 06/28 PO 0746 Vital Signs Date Time Temp Pulse Resp B/P Pulse O2 O2 Flow FiO2 Ox Delivery Rate 06/28 1228 70 118/63 06/28 1219 70 118/63 06/28 0802 97.6 84 126/80 06/28 0733 97.6 84 126/80 06/27 2244 75 132/71 06/27 1946 96.0 75 132/71 06/27 1651 75 146/88 06/27 1611 75 [id number] ASSESSMENT: Patient reports that he has a bed in residential rehabilitation starting on Tuesday. States he is very pleased about this. He presents today as calm and cooperative. States he's been having some acid reflux for which he is prescribed omeprazole 40 mg daily, and he takes Maalox as needed. Denies chest pain, shortness of breath. EKG shows ventricular trigeminy, with more ectopy since the previous tracing. Sinus rhythm 76. QTC 441. Cardiology consult ordered. Depression and anxiety continue. He continues to have auditory hallucinations that tell him "you're hopeless, kill yourself, you're worthless." States these thoughts, and racing thoughts have been improving. Denies homicidal ideation, visual hallucinations, paranoid ideation. Reports sleeping on and off during the night, "Benadryl helps." He states his appetite is good. Speech is well articulated, goal-directed, average in rate, volume and tone. The patient understands the risks/benefits/side effects of the medication and is agreeable to continue taking them. PLAN: DARIUS HENSLEY. Cardiology consult. Anticipate residential rehabilitation bed opening on Tuesday. Continue with current management as patient is improving. Continue to provide support and encouragement.
[2016-06-28 15:56] VITALS: BP 138/71
--- NOTE | 2016-06-28 16:35 | SOCIAL WORKER PROG NOTE PSYCH ---
Social Work Progress Note Progress Note Met with Ciro today, he stated he has a bed at [facility] for 07/02. He reports having "thoughts all the time, that go around and aroung", when asked about SI. He denied having any plan or intent, did not want to elaborate on the thoughts he had. He reported he has no HI, no psychosis. He didn't sleep well last night, "up because of acid reflux." He went to a "couple of groups" today. He feels the medication - Thorazine "slows down my thoughts", which he feels helps him. Ciro rated his depression 0/10:8 and anxiety 0/10:5. Phoned Yamile at [facility] she stated she has a bed for Ciro for , that he will eed to go to [facility] first to be evaluated by and dosed for Methadone (weekend) - he needs to arrive no later than 11am at [facility], then he will be picked up by [facility] staff.m Informed Yamile that Ciro apparently needs to empty out his home, on . 07/01, may be discharged the day prior on 07/01. Yamlie stated that is fine with her as long as Ciro understands that he has to be at [facility] in the AM on 07/02, for evaluation and will get a Brethalyzer and urine screen, if positive then will not be admitted.
[2016-06-28 19:51] VITALS: BP 142/78
--- NOTE | 2016-06-28 20:59 | NUR ---
PT HAS BEEN WITHDRAWN FROM THE COMMUNITY IN PT ROOM SLEEPING. PT CAME OUT TO GIVE VITAL SIGNS AND INTO KITCHEN AREA TO EAT BUT BACK INTO ROOM AFTER. PT OFFERS NO COMPLAINTS AT THIS TIME. PT HAS NO SUICIDAL IDEATIONS.
--- NOTE | 2016-06-29 05:45 | NUR ---
PT UP X 1. PT APPEARED TO SLEEP WELL.
[2016-06-29 07:41] VITALS: BP 136/78
[2016-06-29 11:52] VITALS: BP 130/78
--- NOTE | 2016-06-29 12:55 | CP SOUTH PROGRESS NOTE PSYCH ---
Psych (Inpt) Progress Note Progress Note Progress Note: I discussed this patient's progress to date, current mental status, treatment process in the context of the treatment plan, and discharge planning with staff/ team in the daily morning inpatient team meeting. I also met with the patient myself in individual session. A total of 25 minutes was spent with the patient with more than 50% spent in counseling and/or coordination of care. SUBJECTIVE: "I'm doing pretty good. I shaved, took a nice hot shower." OBJECTIVE: Current Medications Sig/Clarisa Start time Last Medication Dose Route Stop Time Status Admin Al Hydroxide/Mg 30 ML .STK-MED ONE 06/28 1354 DC Hydroxide PO 06/28 1355 Al Hydroxide/Mg 30 ML Q4-6 PRN PRN 06/27 2245 AC 06/28 Hydroxide PO 2222 Chlorpromazine 100 MG Q4P PRN 06/25 1330 AC 06/29 PO 1026 Chlorpromazine 50 MG TID 06/21 2200 AC 06/29 PO 0740 Diphenhydramine HCl 50 MG AT BEDTIME PRN 06/26 1045 AC 06/28 PO 2226 Gabapentin 600 MG FOUR TIMES A DAY 06/21 2100 AC 06/29 PO 0740 Ibuprofen 800 MG Q8P PRN 06/21 0700 AC 06/21 PO 0713 Lorazepam 2 MG Q2P PRN 06/22 1515 DC PO Lorazepam 1 MG Q2P PRN 06/22 1515 DC PO Methadone HCl 60 MG DAILY 06/23 1000 AC 06/29 PO 0904 Multivitamins 1 TAB DAILY 06/22 1000 AC 06/29 PO 0740 Nicotine 14 MG DAILY 06/22 1729 AC 06/29 TOP 0741 Omeprazole 40 MG DAILY AC 06/22 0700 AC 06/29 PO 0740 Prazosin HCl 1 MG AT BEDTIME 06/21 2200 AC 06/28 PO 2224 Sertraline HCl 200 MG DAILY 06/26 1000 AC 06/29 PO 0739 Vital Signs Date Time Temp Pulse Resp B/P Pulse O2 O2 Flow FiO2 Ox Delivery Rate 06/29 1152 62 130/78 06/29 0741 96.3 66 136/78 06/28 2224 142/78 06/28 1951 96.5 71 142/78 06/28 1556 78 138/71 ASSESSMENT: Patient initially presented to this interview in upbeat manner, calm and cooperative. Offering no complaints. Stated that he slept well at night and was looking forward to leaving the hospital at the end of the week and attending [facility] rehabilitation. Continued to complain of some depression and anxiety, stated however that he was no longer feeling suicidal. He reports continuing visual hallucination of needing to do something with his hands, which was similar to the "box" hallucination he had been having on his previous visit. States that the sensations have been getting better. Tolerating his medications, without complaint. While we were having our visit today, we were informed that the patient's bed at [facility] may become available today. Patient became very upset, stating that he needed to have time to close out his apartment and take his belongings before attending residential rehabilitation. Therefore going to rehabilitation today was out of the question. Multiple phone calls have been placed to [facility] by medical social worker Serenity Grover, in the presence of the patient, however they have not answered the phone. At the time of this writing, patient's discharge plans are unclear. Patient's discharge planning, he says, included spending the night at his merchandise examiner 's house, who would ensure the patient's sobriety and assist him at arriving at rehabilitation on time. Denies suicidal ideation, homicidal ideation, auditory hallucinations, paranoid ideation. Speech is well articulated, goal-directed, average in rate, volume and tone. The patient understands the risks/benefits/side effects of the medication and is agreeable to continue taking them. PLAN: Continue to attempt to verify discharge plans. Continue with current management as patient is improving. Continue to provide support and encouragement.
--- NOTE | 2016-06-29 13:55 | NUR ---
PT GOAL TODAY WAS TO "ATTEND GROUPS". HE DID ATTEND PLANNING MEETING, BUT NOT FOCUS GROUP. IN THE MILIEU PT HAS BEEN COOPERATIVE, AND IN A PLEASANT MOOD. HE HAS SOME INTERACTIONS WITH PEERS AND STAFF ALIKE. WHEN ASKED PT DENIES THOUGHTS OF HURTING SELF.
--- NOTE | 2016-06-29 15:41 | SOCIAL WORKER PROG NOTE PSYCH ---
Social Work Progress Note Progress Note Received a call from Yamile at [facility] that Ciro had a bed for today. The person they anticipating to discharge for Tuesday left today. Javed Dumont APRN and I met with Ciro to discuss. Ciro was upset that the bed was opening today versus Tuesday, as he had a plan as to how things were going to work out in him closing out is apartment and getting to the rehab. He was upset to hear that he could lose the bed if he didn't take it today. At a few different points during the discussion he said to just forget about going and that we should just discharge him. Talked about how it has been his goal to get to rehab and we didn't see how just discharging him would change anything. Brought up the fact that he relapses quickly after being discharged and that he would end up in the same situation. Tried calling Yamile at [facility] to discuss the plan. Had difficulty reaching anyone initially, but was able to reach her eventually to discuss his options. It was after 1pm and she stated she needed to have him there by 3pm. Ciro said that he was going to have to turn it down most likely unless he could get his library associate to help him out. Ciro called his [employer]er and then ended up speaking with Yamile a little while later. Yamile shared with Ciro and with me that she is antipating another bed for Tuesday or Tuesday and if Ciro could get there for that day she will get him in. Ciro agreed to this plan. Yamile understands that Ciro is looking to leave to get to his apartment prior so that he can secure the things that he would like to keep. Ciro stated that his library associate will pick him up and bring him to the apartment to look through his belongings and then he will bring him to the program.
[2016-06-29 15:57] VITALS: BP 140/75
[2016-06-29 19:44] VITALS: BP 131/63
--- NOTE | 2016-06-29 22:01 | NUR ---
Pt is in bed during change of shift mood is stable, compliant with the staff no behavioral noted during the day. Vital signs are stable appetite is good. Will continue to monitor the pt overnight.
--- NOTE | 2016-06-30 04:14 | NUR ---
PT APPEARED TO SLEEP THRU THE NIGHT. -SI.
[2016-06-30 07:53] VITALS: BP 144/81
--- NOTE | 2016-06-30 12:10 | SOCIAL WORKER PROG NOTE PSYCH ---
Social Work Progress Note Progress Note Javed Dumont APRN and I met with Ciro today. Talked about the possibility of having an alternative safety plan to discharge earlier from the hospital versus waiting until a bed opens at [facility]. 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 He had no other idea to help maintain his safety and relapse outside of the hospital. He started getting agitated and impulsively stating "fine just give me the papers to sign I'll leave". I brought up the idea of a referral to [facility], which also bothered him. He didn't feel that he would be okay there for a couple of days and felt it would be too risky for his sobriety. Ciro continues to say that he has suicidal thoughts every day, but states he would not intentionally act on these thoughts. Talks about his continued hallucinations in which he finds himself building or doing things with his hands usually. He doesn't like this, as he feels out of control and is scared when it happens. Javed will increase his Thorazine at night to see if that helps.
--- NOTE | 2016-06-30 12:30 | NUR ---
PT ATTENDED MORE GROUPS TODAY THAN USUAL. HE IS CALM AND IN CONTROL OF HIS LANGUAGE ANDHIS BEHAVIOR. HE WAS FRIENDLY WITH STAFF AND PEERS. PT DENIED ANY THOUGHTS OF SUICIDE OR SELF HARM. HE IS TAKING HIS MEDS ORDERED
[2016-06-30 12:39] VITALS: BP 123/75
--- NOTE | 2016-06-30 14:22 | CP SOUTH PROGRESS NOTE PSYCH ---
Psych (Inpt) Progress Note Progress Note Progress Note: I discussed this patient's progress to date, current mental status, treatment process in the context of the treatment plan, and discharge planning with staff/ team in the daily morning inpatient team meeting. I also met with the patient myself in individual session. A total of 25 minutes was spent with the patient with more than 50% spent in counseling and/or coordination of care. SUBJECTIVE: "I have hallucinations or I catch myself doing things, maybe using a drill or churning something." OBJECTIVE: Current Medications Sig/Clarisa Start time Last Medication Dose Route Stop Time Status Admin Al Hydroxide/Mg 30 ML Q4-6 PRN PRN 06/27 2245 AC 06/28 Hydroxide PO 2222 Chlorpromazine 200 MG 0800,1300,2200 06/30 2200 UNVr PO Chlorpromazine 50 MG Q4 HRS NEEDED PRN 06/30 1800 UNVr PO Chlorpromazine 100 MG Q4P PRN 06/30 0815 DC 06/30 PO 1744 Chlorpromazine 100 MG Q4P PRN 06/25 1330 DC 06/29 PO 1942 Chlorpromazine 50 MG TID 06/21 2200 DC 06/30 PO 1542 Diphenhydramine HCl 50 MG .STK-MED ONE 06/29 2126 DC PO 06/29 2127 Diphenhydramine HCl 50 MG .STK-MED ONE 06/29 212 DC IM 06/29 2126 Diphenhydramine HCl 50 MG AT BEDTIME PRN 06/26 1045 AC 06/29 PO 2132 Gabapentin 600 MG FOUR TIMES A DAY 06/21 2100 AC 06/30 PO 1744 Ibuprofen 800 MG Q8P PRN 06/21 0700 AC 06/21 PO 0713 Methadone HCl 5 MG .STK-MED ONE 06/30 0507 DC PO 06/30 0508 Methadone HCl 60 MG DAILY 06/23 1000 AC 06/30 PO 0800 Multivitamins 1 TAB DAILY 06/22 1000 AC 06/30 PO 0759 Nicotine 14 MG DAILY 06/22 1729 AC 06/30 TOP 0759 Omeprazole 40 MG DAILY AC 06/22 0700 AC 06/30 PO 0759 Prazosin HCl 1 MG AT BEDTIME 06/21 2200 AC 06/28 PO 2224 Sertraline HCl 200 MG DAILY 06/26 1000 AC 06/30 PO 0759 Vital Signs Date Time Temp Pulse Resp B/P Pulse O2 O2 Flow FiO2 Ox Delivery Rate 06/30 1628 76 130/49 06/30 1239 69 123/75 06/30 0753 95.8 63 144/81 06/29 1944 97.5 66 131/63 ASSESSMENT: Patient continues to complain of passive chronic suicidal ideation. States "I have these thoughts all the time but I don't plan on doing anything. I hear voices telling me nasty things, but it's getting better." Patient states and also believes that he will not kill himself. He continues to have hallucinations where he feels that he is "working on something." He finds it difficult to verbalize exactly what he is experiencing. States that he is looking forward to attending rehabilitation. He is thankful for the assistance that his dianetic counselor is offering him. Yesterday his dianetic counselor brought him some clothing. Patient states that his dianetic counselor plans on picking him up at the hospital, bring him to his home briefly, and then accompanying him straight to rehabilitation. Patient states that he is motivated for sobriety "there is a lot of work, I need to make a lot of changes, I need to get my kids back." Tolerating medications well, without complaint. States that he slept "fantastic" last night. Denies homicidal ideation, paranoid ideation. Speech is well articulated, goal-directed, average in rate, volume and tone. Alert and oriented 3. Logical. The patient understands the risks/benefits/side effects of the medication and is agreeable to continue taking them. PLAN: Increase Thorazine, patient continues to have visual and auditory hallucinations. Continue with other current management as patient is improving. Continue to provide support and encouragement.
[2016-06-30 16:28] VITALS: BP 130/49
[2016-06-30 19:42] VITALS: BP 124/70
--- NOTE | 2016-06-30 21:33 | NUR ---
PT IS CALM, COOPERATIVE WITH STAFF AND PEERS, AND COMPLIANT WITH UNIT RULES. PT IS ISOLATIVE AND WITHDRAWN TO AN EXTENT, SPENDING LONG PERIODS IN PT ROOM, AWAY FROM MILIEU. PT SEEMS LETHRGIC WILL OFTEN BE IN ROOM SLEEPING. MOOD IS STABLE, AFFECT IS EUTHYMIC TO FULL RANGE, COMMUNCATION IS NORMAL. PT DENIES SI AT THIS TIME.
[2016-07-01 07:53] VITALS: BP 140/84
--- NOTE | 2016-07-01 10:13 | SOCIAL WORKER PROG NOTE PSYCH ---
Social Work Progress Note Progress Note Called Yamile at [facility] to discuss any bed availability for today. Yamile doesn't anticipate anything for today. She is still looking at a bed opening on Tuesday. Ciro was in bed, I prompted him to get up so we could speak. Ciro asked if I spoke with Yamile? I told him that I had and they are not anticipating a bed until Tuesday. I told Ciro that I'd like to call his Pipe Organ Mechanic so we could talk about how he could help him in the meantime. Ciro refused and stated he didn't need to call his egg gatherer and that we should just give him the discharge paperwork to sign. Javed Dumont APRN then joined the discussion as we went into Javed's office. Ciro was agitated about the idea of discharging him spare of the moment without any planning. He was anticipating being here until the bed opened at [facility]. He started making statements about just letting him go and not to worry because "I'll do it right this time, you won't see me again". Talks about the chronic suicidal thoughts that he has and that he doesn't tell nursing he is suicidal due to the way the question is asked by them. He said that they ask "do you have any thoughts about harming yourself right now?" Continues to describe visual hallucinations, didn't feel that the incrase in Thorazine was helpful with that. Sletp okay. He stated that he would have no transportation set up to get to [facility] for his Methadone tomorrow and he ususally schedules this 48 hours in advance with [facility]. He asked if Javed could give him Methadone for the next 2 days? Javed stated that he couldn't, due to it being illegal. Ciro started getting more agitated stating he wasn't joking around and that he'll cut his arm open right now and spray blood all over Javed's computer. Encouraged him to calm down and not do anything rash. Found out that patient can get [facility] for Tuesday and Tuesday to [facility] if he discharges tomorrow.
[2016-07-01 12:24] VITALS: BP 102/62
--- NOTE | 2016-07-01 13:23 | CP SOUTH PROGRESS NOTE PSYCH ---
Psych (Inpt) Progress Note Progress Note Progress Note: I discussed this patient's progress to date, current mental status, treatment process in the context of the treatment plan, and discharge planning with staff/ team in the daily morning inpatient team meeting. I also met with the patient myself in individual session. A total of 35 minutes was spent with the patient with more than 50% spent in counseling and/or coordination of care. OBJECTIVE: Current Medications Sig/Clarisa Start time Last Medication Dose Route Stop Time Status Admin Al Hydroxide/Mg 30 ML Q4-6 PRN PRN 06/27 2245 AC 06/28 Hydroxide PO 2222 Chlorpromazine 200 MG 0800,1300,2200 06/30 2200 AC 07/01 PO 1259 Chlorpromazine 50 MG Q4 HRS NEEDED PRN 06/30 1800 AC PO Chlorpromazine 100 MG Q4P PRN 06/30 0815 DC 06/30 PO 1744 Chlorpromazine 50 MG TID 06/21 2200 DC 06/30 PO 1542 Diphenhydramine HCl 50 MG .STK-MED ONE 06/30 2206 DC PO 06/30 2207 Diphenhydramine HCl 50 MG AT BEDTIME PRN 06/26 1045 AC 06/30 PO 2211 Gabapentin 600 MG FOUR TIMES A DAY 06/21 2100 AC 07/01 PO 1259 Ibuprofen 800 MG Q8P PRN 06/21 0700 AC 06/21 PO 0713 Methadone HCl 60 MG DAILY 06/23 1000 AC 07/01 PO 0802 Multivitamins 1 TAB DAILY 06/22 1000 AC 06/30 PO 0759 Nicotine 14 MG DAILY 06/22 1729 AC 07/01 TOP 0802 Omeprazole 40 MG DAILY AC 06/22 0700 AC 07/01 PO 0601 Prazosin HCl 1 MG AT BEDTIME 06/21 2200 AC 06/28 PO 2224 Sertraline HCl 200 MG DAILY 06/26 1000 AC 07/01 PO 0803 Vital Signs Date Time Temp Pulse Resp B/P Pulse O2 O2 Flow FiO2 Ox Delivery Rate 07/01 1224 69 102/62 07/01 0753 96.3 66 140/84 06/30 2212 71 124/70 06/30 1942 98.4 71 124/70 06/30 1628 76 130/49 ASSESSMENT: Today I met with the patient three times. Twice with social worker assistant Serenity Grover, and a third time along with Serenity Gibson and the unit doctor of nursing practice Tammy. We discussed discharge planning with the patient, explaining that he has reached maximum benefit while here, and he will need to follow up in rehab, where a bed will be available on Tuesday. He has the support of his business writer, who has been to visit in the hospital. Patient has not agreed to sign a disclosure waiver for us to speak with his business writer. Patient states that he will return to his apartment, go to the methadone clinic via [facility], and follow up at rehab on Tuesday. During these discussions, the patient exhibited irritablility, and has made provocative statements. The patient reports continuing depression and anxiety. Continuing chronic passive suicidal ideation which is his baseline. Vague reports of hallucinations about "work" that he does with his hands. I spoke to the patient about the discrepancy between his reports of suicidal ideation to me, and his reports to nursing staff. He stated that nursing asked him if he is going to hurt himself now, to which he answers in the negative. States that he explains to me that he has chronic passive suicidality, with no plan or intent to kill himself. He continues to believe that he needs to make changes in his life, so that he can resume custody care of his children. He appears to be motivated for sobriety, although he finds it difficult to maintain sobriety. Denies homicidal ideation, auditory hallucinations, visual hallucinations. Speech is well articulated, goal-directed, average in rate, volume and tone. Irritable. Only marginally cooperative. Alert and oriented 3. The patient understands the risks/benefits/side effects of the medication and is agreeable to continue taking them. PLAN: We will anticipate discharge tomorrow to home, with arrangements via [facility] for him to receive his methadone maintenance, and with plan that his business writer will bring him to the rehabilitation facility on Tuesday. This plan will be reevaluated prior to discharge in our team meeting tomorrow. Continue with current management as patient is improving. Continue to provide support and encouragement.
--- NOTE | 2016-07-01 14:08 | NUR ---
PT IS COMPLIANT AND COOPERATIVE. MOOD IS STABLE WITH A CONSTRICTED AFFECT. PT CAN BE IRRITABLE AND PROFAINE. PT EXPRESSED SOME PASSIVE SI WITH NO PLAN AND NO INTENT TO ACT HERE. PT TENDS TO BE WITHDRAWN IN ROOM- SLEEPING MUCH OF DAY. PT PRESENT ON UNIT FOR MEALS AND VITALS. PT INTERACTING WITH OTHERS WHEN IN COMMUNITY. PT HAS REFUSED GROUPS. VITALS ARE STABLE, APPETITE IS GOOD.
[2016-07-01 16:19] VITALS: BP 98/56
[2016-07-01 20:12] VITALS: BP 133/71
--- NOTE | 2016-07-01 21:21 | NUR ---
PT IS ISOLATIVE AND WITHDRAWN, REMAINING IN BED FOR MAJORITY OF EVENING. COOPERATIVE AND COMPLIANT WITH STAFF. REFUSED WRAP UP AND AA. NO COMPLAINTS REPORTED. PT REPORTED SI BUT DENIES ANY PLAN TO CARRY OUT ON THOUGHTS WHILE ON UNIT AND WILL NOTIFY STAFF IF ANYTHING CHANGES. PT HAS A STABLE MOOD AND EUTHYMIC AFFECT.
--- NOTE | 2016-07-01 22:22 | NUR ---
PT REFUSED 2100 AND 2200 MEDS. PT LAYING IN BED. "I'M TIRED. I DON'T FEEL LIKE GETTING UP. I DON'T NEED THE MEDICINE." RN WENT TO PT'S ROOM AGAIN LATER ON AND ENCOURAGED HIM TO TAKE MEDS ORDERED. "I REALLY DON'T WANT THEM. I'M FINE. I'LL SLEEP WITHOUT THEM AND YOU DON'T NEED TO BRING THEM IN TO ME. YOU'RE NOT MY SLAVE."
[2016-07-02 08:03] VITALS: BP 119/72
[2016-07-02] MEDS ORDERED: GABAPENTIN300 M2 PO (11:30)
[2016-07-02] MEDS ORDERED: HYDROXYZINE HCL25 M2 PO (11:40)
--- NOTE | 2016-07-02 11:50 | SOCIAL WORKER PROG NOTE PSYCH ---
Social Work Progress Note Progress Note Patient discussed in team meeting this morning. Dr. Hill is planning to discharge Ciro today and will see him after team. Ciro is aware of his discharge for today. He made a couple of calls to rehabs to see about bed availability, but nothing was available for today. [facility] was called to bring him to his apartment. I spoke with staff at [facility] and as long as they have his W-10 he will receive his methadone for tomorrow morning. [facility] is scheduled for him to get there Tuesday and Tuesday. Ciro is still indicating that he will get to the bed at [facility] on Tuesday.
[2016-07-02 12:09] VITALS: BP 105/55
--- NOTE | 2016-07-02 12:24 | CP SOUTH PROGRESS NOTE PSYCH ---
Psych (Inpt) Progress Note Progress Note Progress Note: I discussed this patient's progress to date, current mental status, treatment process in the context of the treatment plan, and discharge planning with staff/ team in the daily morning inpatient team meeting. I also met with the patient myself in individual session. A total of 30 minutes was spent with the patient with more than 50% spent in counseling and/or coordination of care. SUBJECTIVE: "The Thorazine 200mg is more powerful. It slowed all my stuff, the racing thoughts, which is somewhat a relief." OBJECTIVE: Current Medications Sig/Clarisa Start time Last Medication Dose Route Stop Time Status Admin Al Hydroxide/Mg 30 ML Q4-6 PRN PRN 06/27 2245 AC 06/28 Hydroxide PO 2222 Chlorpromazine 200 MG 0800,1300,2200 06/30 2200 AC 07/02 PO 0819 Chlorpromazine 50 MG Q4 HRS NEEDED PRN 06/30 1800 AC 07/02 PO 1035 Diphenhydramine HCl 50 MG AT BEDTIME PRN 06/26 1045 AC 06/30 PO 2211 Gabapentin 600 MG FOUR TIMES A DAY 06/21 2100 AC 07/02 PO 0820 Ibuprofen 800 MG Q8P PRN 06/21 0700 AC 06/21 PO 0713 Methadone HCl 60 MG DAILY 06/23 1000 AC 07/02 PO 0819 Multivitamins 1 TAB DAILY 06/22 1000 AC 06/30 PO 0759 Nicotine 14 MG DAILY 06/22 1729 AC 07/02 TOP 0819 Omeprazole 40 MG DAILY AC 06/22 0700 AC 07/02 PO 0820 Prazosin HCl 1 MG AT BEDTIME 06/21 2200 AC 06/28 PO 2224 Sertraline HCl 200 MG DAILY 06/26 1000 AC 07/02 PO 0819 Vital Signs Date Time Temp Pulse Resp B/P Pulse O2 O2 Flow FiO2 Ox Delivery Rate 07/02 1209 74 105/55 07/02 0803 95.8 86 119/72 07/01 2011 97.5 83 133/71 07/01 1619 90 98/56 07/01 1224 69 102/62 ASSESSMENT: Today at approximately 11:30 AM I found the patient asleep in bed, he was easily arousable. Ambulated with steady gait to my office where he was cooperative and calm. Alert and oriented 3, logical. Patient reports no significant change to his condition, however states that he is ready for discharge. He is forward thinking, states "I'll have to make it work until Tuesday." Patient verbalized understanding of discharge planning including logisticcare rides at 7 AM to his methadone clinic. He states he will present on Tuesday morning to residential rehabilitation as planned. He has stated that his primary objective is to work to make things right so that he can regain custody of his children. Speech is well articulated, goal-directed, average in rate, volume and tone. The patient understands the risks/benefits/side effects of the medication and is agreeable to continue taking them. PLAN: Discharge this afternoon. Patient to follow up at residential rehabilitation. Continue with current management as patient is improving. Continue to provide support and encouragement.
--- NOTE | 2016-07-02 12:25 | DISCHARGE SUMMARY REPORT-PSYCH ---
Visit Information Visit Dates/Diagnosis' Admission Date: 06/21/16 Discharge Date: 07/02/16 Reason for Admission: Patient reported suicidal ideation. This was the patient's th [facility] visit since May 2015. This is his 15th [facility] inpatient say since 2000, with six admissions since July 2015. Psy Discharge Primary Diag: Unspecified depressive do Psy Discharge Secondary Diag: Alcohol use disorder Opioid use disorder Stimulant use disorder GERD Hepatitis C Hospital Course Significant Lab Findings: Lab TSH 2.980 uIU/mL 06/03/16 0704 Hepatitis C Antibody REACTIVE H 10/20/11 1110 Methadone Screen > 735 NG/ML H 06/20/16 1500 Serum Alcohol 211.0 MG/DL 06/20/16 1119 U Benzodiazepines Scrn > 800 NG/ML H 06/20/16 1500 Urine Cannabis Screen > 80.00 NG/ML H 06/20/16 1500 Urine Cocaine Screen > 1000 NG/ML H 06/20/16 1500 Urine Opiates Screen 1973.00 NG/ML 06/20/16 1500 Course Complications: None. Consultations: Patient was seen for admission history and physical by Alin Mclain MD. Please refer to the H&P for additional information. Allergies: Coded Allergies: haloperidol (From HALDOL) (Mild, HIVES 07/10/15) shellfish derived (Mild, HIVES - SEAFOOD HIVES 07/21/15) Hospital Course/TX Response: The patient was monitored on the unit for safety, suicidal ideation, depression, and reports of auditory and visual hallucinations. He participated in multimodal treatments on the unit. He was medicated with Zoloft for depression and anxiety and Thorazine for reports of hallucinations, anxiety, insomnia and racing thoughts. He tolerated these medications well, to good effect. The patient declined a family meeting, and declined to sign any disclosure wavers. We offered a family meeting with his doubling machine operator, for continuity of support after discharge, which the patient also declined. Today, the day of discharge, he ambulated with steady gait to my office where he was cooperative and calm. Alert and oriented 3, logical. Speech is well articulated, goal-directed, average in rate, volume and tone. He is forward thinking, states "I'll have to make it work until Tuesday (when he will begin residential rehab)." Patient verbalized understanding of discharge planning including logisticcare rides at 7 AM to his methadone clinic. He states he will present on Tuesday morning to residential rehabilitation as planned. He has stated that his primary objective is to work to make things right so that he can regain custody of his children. During this inpatient stay, has not demonstrated any self-harm or suicidal behavior. Today in our team meeting, it was decided that the patient has achieved maximum hospital benefit, and that he is stable for discharge. He has his doubling machine operator, and his mother for supports, and will begin residential rehabilitation on Tuesday. Patient reports tolerating his medications well, without complaint. Discharge HBIPS - Tobacco Use Treatment Offered Post DC Medications Offered: Script Given-See Med List Post DC Tobacco Treatment Plan: [facility] Program Appt Date: 07/06/16 Program Appt Time: 0800 - EtOH/Drug Use D/O Treatment Offered Post DC Medications Offered: Ref Med EtOH/Drug Use D/O Post DC EtOH/SubAbuse TX Plan: Other SubAbuse/Dual Pgm ([place]) Program Appt Date: 07/06/16 Program Appt Time: 0800 Metabolic Screening - Screen if on a Neuroleptic Medication - Metabolic screening should include: - Blood Pressure, BMI, Glucose or Hgb A1c, & a - Lipid profile from within the past 365 days. Metabolic Screening () Not Applicable, patient not on a neuroleptic. OR (x) Patient on a neuroleptic(s) . Enter below results for Glucose or Hemoglobin A1C, and lipid panel if obtained during the last 365 days. BMI: 38.000 Blood Pressure: 105/55 Laboratory Results (If applicable): Lab Cholesterol 199 MG/DL 06/03/16 0704 Cholesterol/HDL Ratio 5 % H 06/03/16 07 Glucose 80 mg/dL 06/20/16 1119 HDL Cholesterol 39 mg/dL L 06/03/16 07 Hemoglobin A1c 5.3 06/03/16 07 LDL Cholesterol, Calc ND mg/dL 06/03/16 07 Triglycerides 750 mg/dL H 06/03/16 07 Discharge Instructions General Discharge Information Discharge Medications: Discharge Medications- (Dose, route, freq, indication): HOME MEDICATION LIST START taking these NEW Home Medications: Sertraline HCl Dose: ORAL, DAILY for Qty: 28 Called in to (Zoloft) 100 MG 200 Milligram DEPRESSION Refills: 0 Pharm 1 TABLET TAKE TWO TABLETS DAILY Last Taken:07/02 Time:0800 Chlorpromazine HCl Dose: ORAL, THREE TIMES DAILY Qty: 42 Called in to (Chlorpromazine HCl) 200 Milligram for CLEAR THOUGHTS Refills: 0 Pharm 1 200 MG TABLET Last Taken:07/02/16 Time:1400 CONTINUE taking these Home Medications: Methadone HCl (Methadone Dose: ORAL, DAILY for MENTAL HCl) 10 MG/5 ML SOLUTION 60 Milligram HEALTH Last Taken:07/02/16 Time:08:19 Esomeprazole (Nexium) 40 Dose: ORAL, DAILY for GI MG CAPSULE.DR 1 Capsule Last Taken:06/14/16 Time:0700 Nicotine (Nicotine Dose: On the skin, DAILY for Patch) 7 MG/24 HOUR 7 Milligram SMOKING CESSATION PATCH.TD24 Last Taken:07/02/16 Time:08:19 Multivitamin (One Daily Dose: ORAL, DAILY for Multivitamin) 1 EACH 1 Tablet SUPPLEMENT TABLET Last Taken:06/30/16 Time:07:59 Gabapentin (Gabapentin) Dose: ORAL, Renewed 300 MG CAPSULE 600 Milligram 0800,1300,1700,2200 for Called in to [facility] 1 TAKE TWO CAPS NEEDED, UP TO 4 TIMES DAILY. Last Taken:07/02/16 Time:08:20 Hydroxyzine HCl Dose: ORAL, EVERY 6 HOURS Renewed (Hydroxyzine HCl) 25 MG 25 Milligram NEEDED as needed for Called in to [facility] 1 Last Taken:NOT GIVEN IN HOSPITAL Time: STOP taking these DISCONTINUED Home Medications: Prazosin Hydrochloride Dose: ORAL, AT BEDTIME for NIGHTMARES (Minipress) 1 MG CAPSULE 1 Milligram Reason Stopped: Pt Decision, not taking 1: [facility], [address] [place] [address] Your Preferred Pharmacy [facility] [address] [place] [address] Multiple Neuroleptics: ([x]) Not Applicable OR Document below three failed attempts at monotherapy, or a plan to taper to monotherapy, or augmentation of Clozapine. () Patient's Diet: Regular Patient's Activity: No restrictions DC Disposition: Patient is returning to his apartment. Will attend residential rehabilitation on Tuesday. He has his mother and doubling machine operator as support. Recommendations: Maintain sobriety. Follow-up at your methadone clinic. Follow-up at [facility] residential rehabilitation. Referred To: Provider Referral Service Date: 07/03/16 Referred To: [[facility]] [[facility]] Notes: go daily for methadone maintenance and therapy. Provider Referral Service Date: 07/06/16 Referred To: [[facility]] Notes: [address] [place] [id number] Referred to residential rehab. Follow up Tuesday for admission Copies To: *
--- NOTE | 2016-07-02 12:32 | IP INCIDENTAL NOTE PSYCH ---
Incidental Note Notation: Patient seen with Tammy uLna RN at 10:28 a.m. He is ambulatory, awake and alert, grossly oriented, calm, polite and cooperative. Speech is normal. Affect is blunted. Patient refused medications last night and has not been attending group. He has been here since 06/21/16. He has been safe here and has not demonstrating any self-harm or suicidal behavior during this hospitalization. He had hoped to stay here until a rehab bed opens up at [facility] on Tuesday07/06/16. The patient has achieved maximum hospital benefit. He commented "I don't know what will happen," but he is forward-focused, concerned whether transportation will come through for him to get to his methadone clinic over the weekend. [employer] has been arranged for tomorrow and nursing staff office will provide him $7 bus fare as a backup. He is scared of his house, indicated he has liquor there. He will consider a no-freeze usp as an alternative to his home. IMPRESSION: Stable for discharge. Patient has achieved maximum hospital benefit. He has a fire patroller and his mother as supports.
[2016-07-02] MEDS ORDERED: CHLORPROMAZINE200 M1 PO (12:46)
[2016-07-02] MEDS ORDERED: ZOLOFT100 M1 PO (12:46)
--- NOTE | 2016-07-02 13:09 | NUR ---
Discharge Assessment: Patient discharged to [facility] f/u at methadone maintenance clinic and awaiting rehab bed on Tuesday. Patient advocating to stay until Tuesday but upon discussion with Dr. Hill and myself he understands that we cannot keep him until then. Patient made no suicidal or homicidal statments during our discussion. Patient was future oriented; concerned that [employer] would not provide a ride to the methadone maintenance of Tuesday and that he would not have his methadone . Patient given bus fare to ensure that he would be able to get to the clinic. patient remained isolative all day, refusing groups. Patient was med compliant, meds reviewed with stress on compliance. Suicide education information given to patient including suicide hotline numbers.
== END 2016-07-02 14:50 | DRG 881 ==
LOC: ERH 08:10 → CP SOUTH 06-21 18:51 → DELPENDDIS 06-21 18:51 → ENPENDDIS 06-21 18:51 → ERHI 06-21 18:51 → CP SOUTH 06-21 19:58
PROVIDERS: Emergency Medicine; ADMIT Psychiatry & Neurology Psychiatry
DX: F32.9 Major depressive disorder, single episode, unspecified (principal); B19.20 Unspecified viral hepatitis C without hepatic coma; Z72.89 Other problems related to lifestyle; F11.90 Opioid use, unspecified, uncomplicated; F15.90 Other stimulant use, unspecified, uncomplicated; K21.9 Gastro-esophageal reflux disease without esophagitis
CPT/HCPCS: 36415; 80307; 93005; 93010; 96372; G0463; G0480; J1200; J1630; J3230; J3490

== ENCOUNTER 2017-09-16 21:23 | Inpatient (IN) | payer OTHER, MEDICARE ==
[~2017-09-16] VITALS: Ht 170.2 cm; Wt 117.9 kg
[~2017-09-16 21:23] MED LIST changes: +CHLORPROMAZINE200 M1 PO; +DEPAKOTE ER500 M1 PO; +DEXTROAMP-AMPHE20 MG; +NEURONTIN600 M1 PO; +PROTONIX40 M3 PO; +SEROQUEL XR300 M1 PO; +SEROQUEL100 M1 PO; +ZOLOFT50 M1 PO; +ZYPREXA10 M1 PO
--- NOTE | 2017-09-16 21:46 | ED PSYCHIATRIC COMPLAINT ---
History of Present Illness General Chief Complaint: Psychiatric Related Complaint Stated Complaint: SI Source: patient, old records Exam Limitations: no limitations Vital Signs & Intake/Output Vital Signs & Intake/Output Vital Signs Date Time Temp Pulse Resp B/P B/P Pulse O2 O2 Flow FiO2 Mean Ox Delivery Rate 09/17 0829 98.5 76 16 118/62 96 Room Air 09/17 0614 98.3 114 18 114/66 96 Room Air 09/17 0247 99.0 70 18 100/49 96 Room Air 09/16 2337 98.8 85 18 98/50 94 Room Air 09/16 2127 99.4 105 20 167/96 95 Room Air ED Intake and Output 09/17 0000 09/16 1200 Intake Total Output Total Balance Patient 260 lb Weight Allergies Coded Allergies: haloperidol (From HALDOL) (Mild, HIVES 03/21/17) shellfish derived (Mild, HIVES - SEAFOOD HIVES 03/21/17) Reconcile Medications Divalproex Sodium (Depakote ER) 500 MG TAB.ER.24H 3 TAB PO QPM MENTAL HEALTH (Reported) Gabapentin (Neurontin) 600 MG TABLET 1 TAB PO TID MENTAL HEALTH (Reported) Pantoprazole Sodium (Protonix) 40 MG TABLET.DR 1 TAB PO DAILY ACID REFLUX ( Reported) Quetiapine Fumarate (Seroquel XR) 300 MG TAB.ER.24H 1 TAB PO QPM MENTAL HEALTH (Reported) Sertraline HCl (Zoloft) 50 MG TABLET 100 MG PO DAILY MENTAL HEALTH (Reported) Sertraline HCl (Zoloft) 100 MG TABLET 1 TAB PO DAILY MENTAL HEALTH Triage Note: PT TO TRIAGE WITH +SI. PER PT HAS BEEN DOING WELL IN IOP BUT STRESS GOT TO HIM TODAY AND HE WAS WALKING THE TRAIN TRACKS WITH THOUGHTS OF WAITING TO GET HIT. PT REPORTS ATTEMPTS AT SI IN THE PAST WELL. DENIES HI/ DENIES DRUG/ALCOHOL USE. CALM/COOPERATIVE IN TRIAGE. POLICIES AND PROCEDURES EXPLAINED. Triage Nurses Notes Reviewed? yes HPI: 42M PMH IVDU on Methadone and in IOP, schizoaffective disorder, presents today with depression and suicidal ideation. Reports that he was doing very well with IOP and Methadone and had abstained from any illict drug use. Two days ago he relapsed and started using heroin. He has no memory of the past 2 days. Last use this morning. He was walking by [employer] today and contemplated throwing himself in front of a train. At his 's request he came to [facility]. He is tearful and disappointed in himself for relapsing, especially as he was doing so well. He did not take any of his medications today. He has no other complaints. (Bashir James MD) Past History Travel History Traveled to [place] past 21 day No Medical History Neurological: NONE EENT: NONE Cardiovascular: NONE Respiratory: NONE Gastrointestinal: GERD Hepatic: hepatitis C Renal: NONE Musculoskeletal: NONE Psychiatric: alcohol dependence, anxiety, bipolar disease, depression, IV drug abuse, opioid dependence, substance abuse Endocrine: NONE Blood Disorders: NONE Cancer(s): NONE CROSSING FLAGMAN/Reproductive: NONE ( ) Other Medical Hx: Reports on Tuesday he fell down 2 flights of stairs and has pain in thigh. History of MRSA: Yes History of VRE: No History of CDIFF: No Surgical History Surgical History: non-contributory Psychosocial History Who do you live with Family Services at Home None What is your primary language Tuvaluan Tobacco Use: Current Daily Use Daily Tobacco Use Amount/Type: => 5 Cigarettes daily Family History Family History, If Any: Relation not specified for: FH: suicide Substance abuse (Bashir James MD) Medical History Any Pertinent Medical History? see below for history Family History Hx Contributory? No (Wally Coy MD) Review of Systems Review of Systems Constitutional: Reports: no symptoms. EENTM: Reports: no symptoms. Respiratory: Reports: no symptoms. Cardiovascular: Reports: no symptoms. GI: Reports: no symptoms. Genitourinary: Reports: no symptoms. Musculoskeletal: Reports: no symptoms. Skin: Reports: no symptoms. Neurological/Psychological: Reports: no symptoms. Hematologic/Endocrine: Reports: no symptoms. Immunologic/Allergic: Reports: no symptoms. All Other Systems: Reviewed and Negative (Bashir James MD) Physical Exam Physical Exam General Appearance: well developed/nourished, mild distress Head: atraumatic Eyes: Bilateral: PERRL, EOMI. Ears, Nose, Throat: normal ENT inspection, hearing grossly normal Neck: normal inspection, supple Respiratory: normal breath sounds, no respiratory distress Cardiovascular: regular rate/rhythm Gastrointestinal: soft, non-tender Extremities: normal range of motion Neurological/Psychiatric: awake, alert, depressed affect Appearance/Memory/Insight: appropriate appearance, appropriate insight Behavoir/Eye Contact/Speech: cooperative, normal speech Thoughts/Hallucinations: normal thought pattern, no apparent hallucination Skin: intact, normal color, warm/dry SAD PERSONS Done? +SI (Jacob JONES,Bashir) Progress Differential Diagnosis: dementia, drug intoxication, drug overdose, drug withdrawal, electrolyte abnormality, encephalitis, hypoglycemia, hypothyroidism, IC hem/mass/tumor, meningitis Plan of Care: Orders Procedure Date/time Status Regular Diet 09/17 L Active Regular Diet 09/17 B Complete Continuous Observation Monitor 09/17 1900 Active Continuous Observation Monitor 09/17 1500 Active Continuous Observation Monitor 09/17 1100 Active Lab Add-on Test 09/17 934 Active Patient Data - inpatient psych 09/18 915 Active Admit to inpatient psych 09/18 915 Active Continuous Observation Monitor 09/17 0700 Active Continuous Observation Monitor 09/17 0100 Active Vital Signs 09/17 UNK Active Nursing Misc 09/17 UNK Active Alternative Nursing Therapy 09/17 UNK Active Activity/Ambulation 09/17 UNK Active TSH REFLEX 09/16 2206 Active LIPID PANEL 09/16 2206 Active GLYCOSYLATED HGB 09/16 2206 Active Intake & Output 09/16 2154 Active URINE DRUGS OF ABUSE 09/17 2139 Complete URINALYSIS 09/17 2139 Complete ETHANOL 09/17 2139 Active COMPREHENSIVE METABOLIC PANEL 09/17 2139 Active CBC WITHOUT DIFFERENTIAL 09/17 2139 Complete ED CRISIS PSYCH CONSULT 09/17 2139 Active Current Medications Sig/Clarisa Start time Last Medication Dose Stop Time Status Admin Methadone HCl 55 MG ONCE ONE 09/20 799 AC (Dolophine) 09/19 800 Sertraline HCl 150 MG DAILY 09/18 899 AC (Zoloft) Methadone HCl 60 MG ONCE ONE 09/19 799 AC (Dolophine) 09/18 800 Omeprazole 20 MG DAILY AC 09/18 699 AC (Prilosec) Quetiapine Fumarate 100 MG AT BEDTIME 09/17 2100 AC (Seroquel) Olanzapine 10 MG Q12P PRN 09/17 944 AC (ZyPREXA) Gabapentin 300 MG Q6P PRN 09/17 929 AC (Neurontin) Lorazepam 2 MG Q6P PRN 09/17 929 AC (Ativan) Nicotine 7 MG DAILY 09/17 926 AC (Nicotine Cq) Multivitamins 1 TAB DAILY 09/17 0924 AC (Theragran Vitamins) Laboratory Tests 09/16/17 2227: Urine Opiates Screen > 4000.00 H, Methadone Screen > 735 H, Barbiturate Screen 72, Ur Phencyclidine Scrn 7.40, Amphetamines Screen 495, U Benzodiazepines Scrn < 85, Urine Cocaine Screen > 1000 H, Urine Cannabis Screen 7.50, Urine Color YEL, Urine Clarity CLEAR, Urine pH 5.5, Ur Specific [place] >= 1.030, Urine Protein 30 H, Urine Ketones NEG, Urine Nitrite NEG, Urine Bilirubin NEG@ICTO, Urine Urobilinogen 0.2, Ur Leukocyte Esterase NEG, Ur Microscopic SEDIMENT EXAMINED, Urine RBC FEW H, Urine WBC 3-5 H, Ur Epithelial Cells FEW, Urine Crystals 1+ CA OX H, Urine Bacteria FEW H, Hyaline Casts RARE H, Urine Mucus MOD H, Urine Hemoglobin NEG, Urine Glucose NEG 09/16/17 2207: Anion Gap 13, Estimated GFR > 60, BUN/Creatinine Ratio 18.0, Glucose 150 H, Hemoglobin A1c Pending, Calcium 9.2, Total Bilirubin 1.2, AST 54, ALT 44, Alkaline Phosphatase 69, Total Protein 8.2, Albumin 4.7, Globulin 3.5, Albumin/ Globulin Ratio 1.3, Triglycerides Pending, Cholesterol Pending, LDL Cholesterol, Calc Pending, HDL Cholesterol Pending, Cholesterol/HDL Ratio Pending, TSH &T3 & Free T4 Intrp Pending, CBC w Diff NO MAN DIFF REQ, RBC 4.76, MCV 90.0, MCH 30.0, MCHC 33.3, RDW 12.8, MPV 8.9, Gran % 84.6 H, Lymphocytes % 12.8 L, Monocytes % 2.4, Eosinophils % 0.1, Basophils % 0.1, Absolute Granulocytes 7.8 H, Absolute Lymphocytes 1.2, Absolute Monocytes 0.2, Absolute Eosinophils 0, Absolute Basophils 0, Serum Alcohol < 10.0 (Jacob JONES,Bashir) Comments: To be admitted to [facility] (Zbigniew JONES,Wally) Departure Departure Condition: Stable Referrals: Patient Has No Primary Care Dr (PCP/Family) Departure Forms: Customer Survey General Discharge Information (Bashir James MD) Departure Disposition: STILL A PATIENT Clinical Impression Primary Impression: Depression with suicidal ideation Psych Admission Note Psychiatric Admission: I have seen and evaluated ANEL CRUZ. I have also reviewed all the pertinent lab results and diagnostic results. ANEL CRUZ will be admitted to our inpatient Psychiatric unit for treatment and care. PA/ACCOUNTING SPECIALIST Co-Sign Statement Statement: ED Attending supervision documentation- [] I saw and evaluated the patient. I have also reviewed all the pertinent lab results and diagnostic results. I agree with the findings and the plan of care as documented in the PA's/ACCOUNTING SPECIALIST's documentation. [] I have reviewed the ED Record and agree with the PA's/ACCOUNTING SPECIALIST's documentation. [] Additions or exceptions (if any) to the PAs/ACCOUNTING SPECIALIST's note and plan are summarized below: [] (Zbigniew JONES,Wally)
[2017-09-16 22:13] LABS: ABSOLUTE BASOPHIL COUNT 0 /CUMM (0.0-0.2); ABSOLUTE EOSINOPHIL COUNT 0 /CUMM (0.0-0.7); ABSOLUTE GRANULOCYTE CT 7.8 /CUMM (1.4-6.5); ABSOLUTE LYMPH COUNT 1.2 /CUMM (1.2-3.4); ABSOLUTE MONOCYTE COUNT 0.2 /CUMM (0.10-0.60); BASOPHIL % 0.1 % (0.0-2.0); EOSINOPHIL % 0.1 % (0-5); HEMATOCRIT 42.8 % (42-52); MEAN CORPUSCULAR HGB CONC 33.3 G/DL (33.0-37.0); MEAN PLATELET VOLUME 8.9 FL (7.4-10.4); PLATELET COUNT 183 /CUMM (130-400); RBC DISTRIBUTION WIDTH 12.8 % (11.5-14.5); RED BLOOD CELL CT 4.76 /CUMM (4.70-6.10); WHITE BLOOD CELL COUNT 9.2 /CUMM (4.8-10.8)
[2017-09-16 22:24] LABS: GRANULOCYTE % 84.6 % (42.2-75.2)
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
[2017-09-17] MEDS ORDERED: METHADONE HCL10 M1 PO (11:26)
[2017-09-17 12:24] VITALS: BP 119/72
--- NOTE | 2017-09-17 12:24 | Cons- Medical ---
General Information and HPI Consulting Request Date of Consult: 09/17/17 Requested By: Yan Hill MD Reason for Consult: Medical H&P Source of Information: patient, old records Exam Limitations: no limitations History of Present Illness: 42-year-old male Allergies/Medications Allergies: Coded Allergies: haloperidol (From HALDOL) (Mild, HIVES 03/21/17) shellfish derived (Mild, HIVES - SEAFOOD HIVES 03/21/17) Home Med List: Divalproex Sodium (Depakote ER) 500 MG TAB.ER.24H 3 TAB PO QPM MENTAL HEALTH (Reported) Gabapentin (Neurontin) 600 MG TABLET 1 TAB PO TID MENTAL HEALTH (Reported) Methadone Hydrochloride (Methadone HCl) 10 MG TABLET 70 MG PO DAILY OPIATE SUBSTITUTION (Reported) Pantoprazole Sodium (Protonix) 40 MG TABLET.DR 1 TAB PO DAILY ACID REFLUX ( Reported) Quetiapine Fumarate (Seroquel XR) 300 MG TAB.ER.24H 1 TAB PO QPM MENTAL HEALTH (Reported) Sertraline HCl (Zoloft) 50 MG TABLET 100 MG PO DAILY MENTAL HEALTH (Reported) Sertraline HCl (Zoloft) 100 MG TABLET 1 TAB PO DAILY MENTAL HEALTH Current Medications: Current Medications Sig/Clarisa Start time Last Medication Dose Route Stop Time Status Admin Gabapentin 300 MG Q6P PRN 09/17 0830 AC PO Gabapentin 0 .STK-MED ONE 09/16 2222 DC PO Gabapentin 600 MG ONCE ONE 09/16 2214 DC 09/16 PO 09/17 2215 2217 Lorazepam 2 MG Q6P PRN 09/17 0830 AC IM Methadone HCl 55 MG ONCE ONE 09/20 799 AC PO 09/19 800 Methadone HCl 60 MG ONCE ONE 09/19 799 AC PO 09/18 800 Methadone HCl 0 .STK-MED ONE 09/17 1048 DC PO Methadone HCl 0 .STK-MED ONE 09/17 1048 DC PO Methadone HCl 65 MG ONCE ONE 09/17 0830 DC 09/17 PO 09/17 0831 1043 Multivitamins 0 .STK-MED ONE 09/17 1048 DC PO Multivitamins 1 TAB DAILY 09/17 0924 AC 09/17 PO 1043 Nicotine 7 MG DAILY 09/17 926 AC TOP Olanzapine 10 MG Q12P PRN 09/17 0845 AC IM Omeprazole 20 MG DAILY AC 05/06 0700 AC PO Quetiapine Fumarate 100 MG AT BEDTIME 09/17 2100 AC PO Quetiapine Fumarate 0 .STK-MED ONE 09/16 2216 DC PO Quetiapine Fumarate 100 MG ONCE ONE 09/16 2199 DC 09/16 PO 09/16 Sertraline HCl 150 MG DAILY 09/18 09 AC PO Past History Travel History Traveled to [place] past 21 day No Medical History Neurological: NONE EENT: NONE Cardiovascular: NONE Respiratory: NONE Gastrointestinal: GERD Hepatic: hepatitis C Renal: NONE Musculoskeletal: NONE Psychiatric: alcohol dependence, anxiety, bipolar disease, depression, IV drug abuse, opioid dependence, substance abuse Endocrine: NONE Blood Disorders: NONE Cancer(s): NONE MEDICAL HEALTH RESEARCHER/Reproductive: NONE ( ) Other Medical Hx: Reports on Tuesday he fell down 2 flights of stairs and has pain in thigh. Surgical History Surgical History: non-contributory Family History Relations & Conditions If Any: Relation not specified for: FH: suicide Substance abuse Psychosocial History Where Do You Live? Home Services at Home: None Functional Ability IADLs Independent: shopping, housework, food prep. Employment History Employment: Disability Profession/Employer: N/A Exam & Diagnostic Data Last 24 Hrs of Vital Signs/I&O Vital Signs Date Time Temp Pulse Resp B/P B/P Pulse O2 O2 Flow FiO2 Mean Ox Delivery Rate 09/17 1044 98.4 76 18 124/85 98 Room Air 09/17 0829 98.5 76 16 118/62 96 Room Air 09/17 0614 98.3 114 18 114/66 96 Room Air 09/17 0247 99.0 70 18 100/49 96 Room Air 09/16 2337 98.8 85 18 98/50 94 Room Air 09/16 2127 99.4 105 20 167/96 95 Room Air Intake & Output 09/17 1600 09/17 0800 09/17 0000 Intake Total Output Total Balance Patient 117.934 kg 117.934 kg Weight Last 24 Hrs of Labs/Goldy: Laboratory Tests 09/16/172226: Urine Opiates Screen > 4000.00 H, Methadone Screen > 735 H, Barbiturate Screen 72, Ur Phencyclidine Scrn 7.40, Amphetamines Screen 495, U Benzodiazepines Scrn < 85, Urine Cocaine Screen > 1000 H, Urine Cannabis Screen 7.50, Urine Color YEL, Urine Clarity CLEAR, Urine pH 5.5, Ur Specific [place] >= 1.030, Urine Protein 30 H, Urine Ketones NEG, Urine Nitrite NEG, Urine Bilirubin NEG@ICTO, Urine Urobilinogen 0.2, Ur Leukocyte Esterase NEG, Ur Microscopic SEDIMENT EXAMINED, Urine RBC FEW H, Urine WBC 3-5 H, Ur Epithelial Cells FEW, Urine Crystals 1+ CA OX H, Urine Bacteria FEW H, Hyaline Casts RARE H, Urine Mucus MOD H, Urine Hemoglobin NEG, Urine Glucose NEG 09/16/17 2207: Anion Gap 13, Estimated GFR > 60, BUN/Creatinine Ratio 18.0, Glucose 150 H, Hemoglobin A1c Pending, Calcium 9.2, Total Bilirubin 1.2, AST 54, ALT 44, Alkaline Phosphatase 69, Total Protein 8.2, Albumin 4.7, Globulin 3.5, Albumin/ Globulin Ratio 1.3, Triglycerides 86, Cholesterol 150, LDL Cholesterol, Calc 74, HDL Cholesterol 59, Cholesterol/HDL Ratio 3, TSH &T3 &Free T4 Intrp 1.590, CBC w Diff NO MAN DIFF REQ, RBC 4.76, MCV 90.0, MCH 30.0, MCHC 33.3, RDW 12.8, MPV 8.9 , Gran % 84.6 H, Lymphocytes % 12.8 L, Monocytes % 2.4, Eosinophils % 0.1, Basophils % 0.1, Absolute Granulocytes 7.8 H, Absolute Lymphocytes 1.2, Absolute Monocytes 0.2, Absolute Eosinophils 0, Absolute Basophils 0, Serum Alcohol < 10.0 Assessment/Plan Consult Acknowledgment - Thank you for your consult request.
[2017-09-17 16:18] VITALS: BP 115/67
[2017-09-17 19:50] VITALS: BP 120/66
[2017-09-18 08:32] VITALS: BP 117/75
[2017-09-18 12:28] VITALS: BP 122/74
[2017-09-18 16:01] VITALS: BP 116/71
--- NOTE | 2017-09-18 17:17 | CPS PROVIDER INIT ASMT PSYCH ---
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 He carries the diagnosis unspecified depression, alcohol use disorder, opiate use disorder, stimulant use disorder, GERD, hepatitis C. He was admitted on 09/17/17, referred by [facility] emergency room Chief Complaint: Relapsed on heroin which he believes was taken with cocaine. Reported suicidal ideation to lie on train tracks or jump off a bridge. Last heard voices the day he relapsed on heroin. Missed a couple of days of psychiatric medications. Was getting along well with his until recent argument. Reaction to Hospitalization: "Safe." History of Present Illness Onset of Illness: Chronic mental illness and substance abuse, relapsed with heroin for a couple of days. Circumstances Leading to Admission: Suicidal ideation. Medication nonadherence. Substance relapse. Argument with . Problem(s) Justifying Need for Admission: Suicidal ideation. Other HPI: Patient reports that he had been doing well and was attending [facility]. Reported he started having issues with depression earlier in the week. He was not taking his medications properly. Reports his SUPERVISOR CLAIMS at the IOP thought he was on Seroquel 100 mg 3 times a day but he thought he was on 100 mg twice a day and 400 mg at night, so he used up his Seroquel supply early. He stopped all his medications on Tuesday. Had an argument with his and became depressed. Hughes voices. Relapsed with heroin and assumes it was tainted with cocaine. Reports he used maybe 20 bags IV. Reports he started the drug use on and used for 2 days and "lost it." Claims he was lying down on train tracks. Reports having middle of the night awakenings every 1.5-2 hours and having frequent night terrors. Reports appetite is fine. Energy: Reports he never really has energy. Case discussed with nurse, who reports that the patient slept well. Patient reports suicidal ideation. Denying pain. Vital signs stable. calls frequently. Past Psychiatric History Past Diagnosis(es)- if any: Unspecified depression. Alcohol use disorder. Opiate use disorder. Stimulant use disorder. GERD. Hepatitis C. Past Precipitating Factors- if any: Suicidal ideation. Substance use. - Include inpatient and outpatient treatment Treatment History: Patient reports he attends [facility] in [place] where he sees Cynthia Flores and Ivy Bermeo APRN. History of multiple inpatient admissions including at [place], [place], [facility], [facility], [facility], [facility] and [facility]. History of Suicide Attempts or Gestures History of multiple suicide attempts by hanging, overdosing and cutting wrist. Substance Abuse History: Tobacco at 0.5-1 pack per day. Alcohol: Denied. Cannabis: Denied. Patient reports he was 7 months clean and then relapsed and then was 2 months clean and then relapsed for 2 days. Used heroin as above and apparently it was tainted with cocaine. Allergies: Coded Allergies: haloperidol (From HALDOL) (Mild, HIVES 03/21/17) shellfish derived (Mild, HIVES - SEAFOOD HIVES 03/21/17) Home Med List: Seroquel 100 mg every morning and q. afternoon at 400 mg nightly Zoloft 100 mg daily Methadone 70 mg daily Nexium 40 mg daily Neurontin 600 mg 3 times daily - Include any medical condition(s) that may - impact the patient's recovery/remission Past Medical History: Overweight, GERD. 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 History of MRSA: Yes History of VRE: No History of CDIFF: No Isolation History: Standard Surgical History Surgical History: none Psychiatric Family/Social Hx Family History Psychiatric Illness: Patient reports there is mental illness on both sides, runs rampant. States there is a lot of bipolar. One relative with multiple personality disorder. Substance Use: Substance abuse on both sides. Suicides: Suicides on both sides, 2 cousins and one aunt. Social History Living Situation: Rents a room. Significant Relationships (family/friends): lives in [place]. Patient has 2 children, a son, age 10 and a daughter, age 6, and they are staying with the patient's mother. Education: High school graduate. Vocation/Occupation: On disability for psychiatric problems. Legal: History of arrests for threatening, disorderly conduct, breach of peace, aiding and abetting and forgery. Healthly Behaviors Screening Tobacco Screening Tobacco Use from ED Docu: Current Daily Use Daily Tobacco Use Amount/Type: => 5 Cigarettes daily - If tobacco counseling indicated - the following topics are required. - #1 Recognizing dangerous situations. - #2 Coping Skills. - #3 Basic information about quitting. Status of Tobacco Cessation Counseling: #1, #2 AND #3 Completed Cessation Med Status Nicotine Patch Ordered Alcohol Screening - ETOH screen POS if BAL >=80 or Audit-C>= M4/F3 Audit-C Score from Diag Assess: 3 Blood Alcohol Level: Laboratory Tests 09/16 2206 Toxicology Serum Alcohol (<10 MG/DL) < 10.0 Alcohol Use Screening Results: Neg per Audit C &/or BAL - If ETOH counseling indicated - the following topics are required. - #1 Express concern about the patient's - drinking at unhealthy levels, include informing - of national norms for moderate drinking: - men <= 14 drinks/week, max 4 drinks/occasion - women <= 7 drinks/week, max 3 drinks/occasion - #2 Providing feedback, including linking alcohol to - negative physical effects (liver injury, hypertension) - negative emotional effects (relationship problems and - depression) - negative occupational consequences (reduced work - performance) - #3 Advising the patient to abstain from alcohol or - to drink below national norms for moderate drinking - (as listed above). Status of ETOH Use Counseling: N/A B/C NO ETOH Use Metabolic Screening - Screen if on a Neuroleptic Medication - Metabolic screening should include: - Blood Pressure, BMI, Glucose or Hgb A1c, & a - Lipid profile from within the past 365 days. Metabolic Screening () Not Applicable, patient not on a neuroleptic. OR () Patient on a neuroleptic(s) . Enter below results for Hemoglobin A1C, and lipid panel if obtained during the last 365 days. BMI: 40.700 Blood Pressure: 116/71 Laboratory Results From [facility] (If applicable): [x] Lab Cholesterol 150 MG/DL 09/16/172206 Cholesterol/HDL Ratio 3 % 09/16/172206 HDL Cholesterol 59 mg/dL 09/16/172206 LDL Cholesterol, Calc 74 mg/dL 05/04/18 2207 Triglycerides 86 mg/dL 09/16/172206 Glycohemoglobin pending. Exam and Plan Mental Status Examination Ambulation Status: Normal gait. Appearance: Obese WM, dressed in blue paper scrubs. Has goatee and long hair. Sitting in a chair in NAD. Attitude towards examiner: Calm, polite and cooperative. Psychomotor activity: No psychomotor agitation or retardation. Behavior: Unremarkable. Quality of speech: Normal in volume, rate and tone. Affect: Calm and blunted. Mood: "Kind of lost, pretty much wish I stayed on the train tracks. Upset about methadone reduction. Sad 02/22. Anxiety 12/23. Feels hopeless, helpless, worthless and guilty. Suicidal Ideation: Reports suicidal ideation. Gives a safety promise for here. Homicidal Ideation: Denies homicidal ideation. Hallucinations: Reports hearing voices that say "always bad sh*t." Denies visual hallucinations. Paranoid/Delusional Material: Denies paranoid ideation and magical reilly. Difficulties with thought organization: Thinking is clear, logical and goal-directed. Insight: Limited. Judgment: Poor. Orientation: Oriented 3. Cognition: Grossly intact. Memory Function: Grossly intact. Estimate of intellectual functioning: Average. Assets/Strengths Patient Identified Assets/Strengths: "Love my kids." Impression/Plan Impression and Plan: The patient is here with suicidal ideation and auditory hallucinations in the context of medication nonadherence and relapse with heroin and cocaine. - Include all active medical diagnosis that require tx DSM 5 Diagnosis(es): Major depression with psychotic features. Opioid use disorder. Cocaine use disorder. GERD. Hepatitis C. - Initial Tx Plan for Active Psych & Medical Conditions Treatment Plan: The patient will be monitored on the unit for safety, psychosis, substance withdrawal and mood disorder. Methadone taper is in progress because of dirty urine. Additional information needed from collaterals. Anticipate once clinically stable, that the patient will be discharged to home and be referred back to his IOP. - Factors that would help patient function - in a less restrictive setting. Factors: Not suicidal. Improved or remitted psychotic symptoms.
[2017-09-18 19:49] VITALS: BP 123/74
[2017-09-19 07:53] VITALS: BP 126/76
[2017-09-19 12:18] VITALS: BP 118/74
--- NOTE | 2017-09-19 13:01 | CP SOUTH PROGRESS NOTE PSYCH ---
Psych (Inpt) Progress Note Progress Note Include the following elements, when applicable: Involvement in the active treatment of the patient with behavioral observations of the patient and the patient's response to the treatment. Review of the ongoing treatment process in the context of the treatment plan. Indication of how multi-disciplinary staff members are carrying out the treatment plan. Plans for future interventions and recommendations for revision of the treatment plan. Liaison with other physicians/providers. Progress Note: I discussed this patient's progress to date, current mental status, treatment process in the context of the treatment plan, and discharge planning with staff/ team in the daily morning inpatient team meeting. I also met with the patient myself in individual session. A total of 20 minutes was spent with the patient with more than 50% spent in counseling and/or coordination of care. SUBJECTIVE: "I am not a good place." OBJECTIVE: Current Medications Sig/Clarisa Start time Last Medication Dose Route Stop Time Status Admin Gabapentin 300 MG TID 09/18 1400 AC 09/19 PO 0802 Gabapentin 300 MG Q6P PRN 09/17 0930 AC 09/19 PO 1219 Lorazepam 2 MG Q6P PRN 09/17 0930 AC IM Methadone HCl 40 MG ONCE ONE 09/23 0700 AC PO 09/22 0801 Methadone HCl 45 MG ONCE ONE 09/21 0800 AC PO 09/21 0801 Methadone HCl 50 MG ONCE ONE 09/20 0800 AC PO 09/20 0801 Methadone HCl 55 MG ONCE ONE 09/19 0800 DC 09/19 PO 09/19 0801 0804 Multivitamins 1 TAB DAILY 09/17 0924 AC 09/19 PO 0802 Nicotine 21 MG DAILY 09/18 0900 AC 09/19 TOP 0802 Olanzapine 10 MG Q12P PRN 09/17 0945 AC IM Omeprazole 20 MG DAILY AC 09/18 0700 AC 09/19 PO 0802 Quetiapine Fumarate 300 MG AT BEDTIME 09/19 2100 UNVr PO Quetiapine Fumarate 200 MG AT BEDTIME 09/18 2100 DC 09/18 PO 2124 Quetiapine Fumarate 100 MG BID@0900,1500 09/18 1500 AC 09/19 PO 0802 Sertraline HCl 150 MG DAILY 09/18 0900 AC 09/19 PO 0802 Vital Signs Date Time Temp Pulse Resp B/P B/P Pulse O2 O2 Flow FiO2 Mean Ox Delivery Rate 09/19 1218 59 118/74 09/19 0753 96.9 62 126/76 09/18 1949 98.9 61 123/74 09/18 1601 55 116/71 ASSESSMENT: Patient reports continuing depression and anxiety. Reports being unhappy that he is being tapered off methadones, states "I will not be able to maintain sobriety without methadone." He reports continuing suicidal ideation, continuing auditory hallucinations telling him that he is "worthless, hopeless, go kill yourself." Denies visual hallucinations, however has experienced visual hallucinations in the past. Reports difficulty sleeping, having racing thoughts at night, night terrors, waking up frequently at night. Appetite is good. Energy and interest levels are low. Concentration is poor "sometimes it is okay to a limited degree." Depression:5/10; Anxiety:5/10 (with 10 the worst.) Denies homicidal ideation, visual hallucinations, paranoid ideation. Speech is well articulated, goal-directed, average in rate, volume and tone. The patient understands the risks/benefits/side effects of the medication and is agreeable to continue taking them. PLAN: 1. Increase Seroquel at night to 300 mg for continuing racing thoughts, auditory hallucinations, difficulty sleeping. Continue with other current management. Continue to provide support and encouragement.
[2017-09-19 15:37] VITALS: BP 121/66
--- NOTE | 2017-09-19 15:51 | SOCIAL WORKER PROG NOTE PSYCH ---
Social Work Progress Note Progress Note Ciro presented today at depressed and hopeless. Upset over his relapse, stating he had a couple of months clean prior to that and was attending [facility] with [facility]. Reports that he was fighting with his and he wasn't taking his meds and just go depressed and wanted a fast pick me up. He started feeling suicidal after using and thought he should just go lay down on the train tracks. He regrets having left the train tracks. Feels tired of his life repeating the same cycle. He is open to rehab referrals, but is limited as to where he can go due to insurance. He really doesn't want to go back to where he was staying, because people are using in the house. He has been renting a room in [place]. He is not happy that the doctor will be tapering his Methadone. He says he can't come off Methadone. He may submit a 3 day paper to terminate voluntary status. He reports having a CAN Assessment through [facility] on 09/26 at [facility]. He is hoping to get in there. His and him talk. She is currently staying at a mcc in [place]. If he could he would chose to stay in a mcc near the [place] area so he can see his kids more easily. He would like me to help him with referrals to [facility], [facility], and [facility]. He signed releases for those programs. Reports auditory hallucinations today saying negative things to him and telling him to kill himself. He wouldn't act on these things here.
[2017-09-19 20:07] VITALS: BP 124/68
[2017-09-20 07:41] VITALS: BP 112/58
--- NOTE | 2017-09-20 10:36 | SOCIAL WORKER PROG NOTE PSYCH ---
Social Work Progress Note Progress Note Epifanio Wheat from [facility] left a voicemail stating they do take [facility], but if they get a disability check there is a room and board fee. Informed Ciro and encouraged him to call to find out more information. Ciro also mentioned wanting to look into [facility] residential program. We made some calls together. He spoke with Domenic Wheat for a few minutes on the phone, but didn't seem pleased with what he heard. There is a shared 4 person room and he would have to pay 10.00 dollars a day. Called [facility] and left a voicemail with his counselor Cynthia. Ciro also called [facility] to follow up on his referral. He was told that the doctor needed to review it. Continues to express suicidal thoughts today. Reports it' s bad and he feels conflicted about whether or not he should sign a 3 day paper to leave. He is worried about his Methadone being significantly lowered. Ultimately he decided to sign the 3 day paper. Looks sedated at times, closing his eyes on and off. He kept the number for [facility] and will continue to try and call them today. Usually there is a significant wait time.
[2017-09-20 12:25] VITALS: BP 124/63
--- NOTE | 2017-09-20 12:29 | CP SOUTH PROGRESS NOTE PSYCH ---
Psych (Inpt) Progress Note Progress Note Include the following elements, when applicable: Involvement in the active treatment of the patient with behavioral observations of the patient and the patient's response to the treatment. Review of the ongoing treatment process in the context of the treatment plan. Indication of how multi-disciplinary staff members are carrying out the treatment plan. Plans for future interventions and recommendations for revision of the treatment plan. Liaison with other physicians/providers. Progress Note: I discussed this patient's progress to date, current mental status, treatment process in the context of the treatment plan, and discharge planning with staff/ team in the daily morning inpatient team meeting. I also met with the patient myself in individual session. A total of 15 minutes was spent with the patient with more than 50% spent in counseling and/or coordination of care. SUBJECTIVE: "I slept better last night with a higher dose of Seroquel." OBJECTIVE: Current Medications Sig/Clarisa Start time Last Medication Dose Route Stop Time Status Admin Gabapentin 300 MG .STK-MED ONE 09/195 DC PO 09/19 184 Gabapentin 300 MG TID 09/18 1400 AC 09/20 PO 0753 Gabapentin 300 MG Q6P PRN 09/17 0930 AC 09/20 PO 1028 Lorazepam 2 MG Q6P PRN 09/17 0830 AC IM Methadone HCl 40 MG ONCE ONE 09/23 799 AC PO 09/22 800 Methadone HCl 45 MG ONCE ONE 09/22 799 AC PO 09/21 800 Methadone HCl 50 MG ONCE ONE 09/20 08 DC 09/20 PO 09/20 0801 0756 Multivitamins 1 TAB DAILY 09/17 0924 AC 09/20 PO 0753 Nicotine 21 MG DAILY 09/18 899 AC 09/20 TOP 0752 Olanzapine 10 MG Q12P PRN 09/17 0945 AC IM Omeprazole 20 MG DAILY AC 09/18 0700 AC 09/20 PO 0616 Quetiapine Fumarate 350 MG AT BEDTIME 09/20 2100 UNVr PO Quetiapine Fumarate 300 MG AT BEDTIME 09/19 2100 DC 09/19 PO 2137 Quetiapine Fumarate 100 MG BID@0900,1500 05/ 1500 AC 09/20 PO 0753 Sertraline HCl 150 MG DAILY 09/18 0900 AC 09/20 PO 0753 Vital Signs Date Time Temp Pulse Resp B/P B/P Pulse O2 O2 Flow FiO2 Mean Ox Delivery Rate 09/20 740 98.4 70 112/58 09/19 2006 99.5 57 124/68 09/19 1537 59 121/66 ASSESSMENT: Patient continues to report high levels of depression and anxiety, continuing auditory hallucinations, racing thoughts, and suicidal ideation. States he feels better after increasing Seroquel last night to 300 mg. States that he slept better last night, and his racing thoughts are better with the additional Seroquel. Reports that the Seroquel 100 mg twice daily during the day has been helpful for his anxiety, feels no need to increase that dose. He continues to be unhappy about his methadone taper, and says that he would like to leave the hospital soon, but not today. Depression:10/10; Anxiety:8/10 (with 10 the worst.) Denies homicidal ideation ("never"), visual hallucinations, paranoid ideation. Says that his appetite is good. His concentration is good "to a degree." Speech is well articulated, goal-directed, average in rate, volume and tone. Depressed, hopeless affect. The patient understands the risks/benefits/side effects of the medication and is agreeable to continue taking them. PLAN: 1. Increase Seroquel to 350 mg at bedtime for continuing auditory hallucinations, racing thoughts, difficulty sleeping. Continue with current management as patient is improving. Continue to provide support and encouragement.
[2017-09-20 15:54] VITALS: BP 110/64
[2017-09-20 20:06] VITALS: BP 122/64
[2017-09-21 07:41] VITALS: BP 132/78
--- NOTE | 2017-09-21 08:56 | CP SOUTH PROGRESS NOTE PSYCH ---
Psych (Inpt) Progress Note Progress Note Include the following elements, when applicable: Involvement in the active treatment of the patient with behavioral observations of the patient and the patient's response to the treatment. Review of the ongoing treatment process in the context of the treatment plan. Indication of how multi-disciplinary staff members are carrying out the treatment plan. Plans for future interventions and recommendations for revision of the treatment plan. Liaison with other physicians/providers. Progress Note: I discussed this patient's progress to date, current mental status, treatment process in the context of the treatment plan, and discharge planning with staff/ team in the daily morning inpatient team meeting. I also met with the patient myself in individual session. A total of 15 minutes was spent with the patient with more than 50% spent in counseling and/or coordination of care. SUBJECTIVE: "The Seroquel slows the voices, and the racing thoughts are quelled during the day. I slept well last night, but it always gets worse in the early evening." OBJECTIVE: Current Medications Sig/Clarisa Start time Last Medication Dose Route Stop Time Status Admin Gabapentin 300 MG TID 09/18 1400 AC 09/21 PO 0746 Gabapentin 300 MG Q6P PRN 09/17 0930 AC 09/21 PO 0615 Lorazepam 2 MG Q6P PRN 09/17 0830 AC IM Methadone HCl 40 MG ONCE ONE 09/23 799 AC PO 09/22 800 Methadone HCl 45 MG ONCE ONE 09/22 799 DC 09/21 PO 09/21 0801 0746 Multivitamins 1 TAB DAILY 09/18 923 AC 09/21 PO 0746 Nicotine 21 MG DAILY 09/18 899 AC 09/21 TOP 0747 Olanzapine 10 MG Q12P PRN 09/17 0945 AC IM Omeprazole 20 MG DAILY AC 09/18 699 AC 09/21 PO 0614 Quetiapine Fumarate 350 MG 2000 09/21 2000 AC PO Quetiapine Fumarate 350 MG AT BEDTIME 09/20 2100 DC 09/20 PO 2153 Quetiapine Fumarate 300 MG AT BEDTIME 09/19 2100 DC 09/19 PO 2137 Quetiapine Fumarate 100 MG BID@0900,1500 / 1500 AC 09/21 PO 0746 Sertraline HCl 150 MG DAILY 09/18 899 AC 09/21 PO 0747 Vital Signs Date Time Temp Pulse Resp B/P B/P Pulse O2 O2 Flow FiO2 Mean Ox Delivery Rate 05/09 0741 98.3 67 132/78 09/20 2005 96.8 66 122/64 09/20 1554 59 110/64 09/20 1225 79 124/63 ASSESSMENT: Patient reports some improvement to his sleep, and racing thoughts with the increase in Seroquel to 350 mg at bedtime, in addition to 100 mg twice daily. Continues to complain of command auditory hallucinations, telling him that he should kill himself. Today we discussed trauma, and the benefits of trauma based therapy. States that he has never "done the work in therapy." Depression:01/23; Anxiety:12/23 (with 10 the worst.) Denies homicidal ideation, visual hallucinations, paranoid ideation. Reports that his appetite is good, patient is aware that he can gain weight while taking Seroquel, we discussed good eating habits and healthy food. Energy and interest and concentration remain low. Speech is well articulated, goal-directed, average in rate, volume and tone. The patient understands the risks/benefits/side effects of the medication and is agreeable to continue taking them. PLAN: 1. Change bedtime Seroquel to 8 PM. Patient states that his racing thoughts, auditory hallucinations depression and anxiety get worse around that time in the evening. 2. Consider trauma based therapy on an outpatient basis. Continue with other current management as patient is improving. Continue to provide support and encouragement.
--- NOTE | 2017-09-21 10:29 | SOCIAL WORKER PROG NOTE PSYCH ---
Social Work Progress Note Progress Note Mag from [facility] called this morning to offer Ciro a bed today. She said if Ciro is interested he would need his Methadone transferred from [facility] to [facility]. He would stay in their Recovery House and attend [facility] for a week and then transfer into their intensive residential program for 28 days. 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 She said in that case he would also need approval from [facility]. I let her know I would discuss all of this with Ciro and get back to her. Javed Dumont APRN and I met with Ciro. I informed him of this bed that was available. He agreed he would take the bed. Alejo BRANDW reached out to [place] at [facility] to discuss the Methadone transfer. Cynthia said that Cesar should reach out to [facility] because he was last dosed here. I called [facility] [phone] and I was told that their intake dept is only open from 6:30am- 9:30am. They told me to call tomorrow [phone] ext. [phone]. Called Mag again at [facility] and left a voicemail with this update. Spoke with Mag later in the afternoon who shared that she would hold the bed until noon tomorrow. She didn't sound very hopeful that [facility] would work with me on the transfer, but she encouraged me to try and get back to her tomorrow. Meanwhile Ciro has been working on calling other rehabs now that he knows he has Husky D. He was given the application for [employer]. He filled it out. This was faxed with other clinical to Yamile at [employer] [employer].
[2017-09-21 12:02] VITALS: BP 119/67
[2017-09-21 15:50] VITALS: BP 132/68
[2017-09-21 19:07] VITALS: BP 118/61
[2017-09-22 07:43] VITALS: BP 136/76
--- NOTE | 2017-09-22 08:27 | SOCIAL WORKER PROG NOTE PSYCH ---
Social Work Progress Note Progress Note Called [facility]'s intake dept. this morning. Spoke with Heena Arnett. She told me that Ciro would need to come in person at 6:30am M-F for intake and that they would require a list of clinical documentation from us and from [facility]. They will fax a list of needed requirements. Called Mag at [facility]. She said they will take Ciro to the 6:30am intake tomorrow if we get everything to [facility]. Told her I would update her on progress as we progress through this process. Called and left a message for Cynthia parrish [facility] requesting they fax requested information to [facility]. Faxed a clinical packet to [facility]. Coordinated with Cynthia at [facility], who faxed clinical as well. Spoke with Mag from [facility] several times throughout the day to get things straigtened out with [facility] and his methadone. At 2pm she okayed him to come to the program. A ride was set up with [facility] around 2:30pm. They couldn't give an eta. As of 5pm they said they would be here shortly. Called [facility] to let them know he was still waiting for his ride.
[2017-09-22] MEDS ORDERED: NICOTINE PATCH1 EAC3 TOP (09:01)
[2017-09-22] MEDS ORDERED: METHADONE HCL10 M1 PO (09:04)
[2017-09-22] MEDS ORDERED: PROTONIX40 M3 PO (09:07)
[2017-09-22] MEDS ORDERED: NEURONTIN600 M1 PO (09:07)
[2017-09-22] MEDS ORDERED: ZOLOFT100 M1 PO (09:09)
[2017-09-22] MEDS ORDERED: SEROQUEL100 M1 PO (09:13)
--- NOTE | 2017-09-22 09:16 | Patient Discharge Instructions ---
Psych Discharge Inst General Discharge Information Reason for Admission: Reported suicidal ideation to lie on train tracks or jump off a bridge. Psy Discharge Primary Diag+ MDD Psy Discharge Secondary Diag+ Opioid Use Disorder Summary Tests/Major Procedures Lab Amylase 44 U/L 12/30/15 1126 Cholesterol 150 MG/DL 09/16/172206 Cholesterol/HDL Ratio 3 % 09/16/172206 HDL Cholesterol 59 mg/dL 09/16/172206 Hemoglobin A1c 5.2 % 09/16/172206 LDL Cholesterol, Calc 74 mg/dL 09/16/172206 Triglycerides 86 mg/dL 09/16/172206 Studies Pending at DC: none Patient Instructions Contact Information Your Psychiatrist on [facility] was Yan Hill MD * If you are experiencing an emergency related to this hospitalization, please call [phone] to contact the treating psychiatrist or the psychiatrist-on- call. * To Request a copy of your medical records, please contact the Medical Records Department at [phone]. * To request results of studies pending at the time of discharge, please call [phone]. * Continue your Medications until directed to stop by your Healthcare provider. General Medication Information Please continue to take your new medications and your continued home medications , unless otherwise indicated on your discharge medication list, or unless directed by your MD or MACHINE PRECISION ETCHER to stop them. Special Instructions Diet Regular Activity Normal - Tobacco Use Treatment Offered Post DC Medications Offered: Script Given-See Med List Post DC Tobacco Treatment Plan: Other Tobacco Tx Pgm - EtOH/Drug Use D/O Treatment Offered Post DC Medications Offered: Script Given-See Med List Post DC EtOH/SubAbuse TX Plan: Other SubAbuse/Dual Pgm Metabolic Screening Patient on a neuroleptic(s) . Enter below results for Hemoglobin A1C, and lipid panel if obtained during the last 365 days. BMI: 40.700 Blood Pressure: 136/76 Laboratory Results From [facility] (If applicable): Lab Cholesterol 150 MG/DL 09/16/172206 Cholesterol/HDL Ratio 3 % 09/16/172206 HDL Cholesterol 59 mg/dL 09/16/172206 Hemoglobin A1c 5.2 % 09/16/172206 LDL Cholesterol, Calc 74 mg/dL 09/16/172206 Triglycerides 86 mg/dL 09/16/172206 Advance Directives Does the Patient have Medical Advance Directives No/Refused further info Does Pt have Psychiatric Advance Directives? No/Refused further info Does Patient have a Designated Surrogate Decision Maker: No Information About Psychiatric Advance Directives Provided? Refused Discharge Plan Post Hospital Treatment Plan: [facility] [place]
[2017-09-22 11:55] VITALS: BP 103/59
--- NOTE | 2017-09-22 14:02 | DISCHARGE SUMMARY REPORT-PSYCH ---
Visit Information Visit Dates/Diagnosis' Reason for Admission: Reported suicidal ideation to lie on train tracks or jump off a bridge. Psy Discharge Primary Diag: MDD Psy Discharge Secondary Diag: Opioid Use Disorder Hospital Course Course Allergies: Coded Allergies: haloperidol (From HALDOL) (Mild, HIVES 03/21/17) shellfish derived (Mild, HIVES - SEAFOOD HIVES 03/21/17) Hospital Course/TX Response: The treatment team meeting this morning discussed patient's progress to date, current mental status, treatment process in the context of the treatment plan, and discharge planning. Mental status examination: Patient reported improvement to his sleep, less racing thoughts but continues to report occasional command auditory hallucinations, telling him that he should kill himself. He reported that he is ready for discharge to [facility] if a bed is available, Depression: 12/23; anxiety: 11/22, Denies homicidal ideation, visual hallucinations, paranoid ideation. Reports that his appetite is good, he reported that energy and interest and concentration remain low. Speech is well articulated, goal-directed, average in rate, volume and tone. PLAN: [facility] to [facility] [place], [place] Discharge HBIPS - Tobacco Use Treatment Offered - EtOH/Drug Use D/O Treatment Offered Metabolic Screening - Screen if on a Neuroleptic Medication - Metabolic screening should include: - Blood Pressure, BMI, Glucose or Hgb A1c, & a - Lipid profile from within the past 365 days. Discharge Instructions General Discharge Information Discharge Diet Regular Discharge Activity Normal Prescriptions Stop taking the following medications: Sertraline HCl (Zoloft) 100 MG TABLET ORAL DAILY Qty = 30 Divalproex Sodium (Depakote ER) 500 MG TAB.ER.24H ORAL Every night Sertraline HCl (Zoloft) 50 MG TABLET ORAL DAILY Quetiapine Fumarate (Seroquel XR) 300 MG TAB.ER.24H ORAL Every night Methadone Hydrochloride (Methadone HCl) 10 MG TABLET ORAL DAILY Continue taking these medications: Gabapentin (Neurontin) 600 MG TABLET 1 Tablet ORAL THREE TIMES DAILY Qty = 90 Comments: Last Taken:09/22/17 Time:7am This prescription has been renewed Pantoprazole Sodium (Protonix) 40 MG TABLET.DR 1 Tablet ORAL DAILY Qty = 30 Comments: PRILOSEC SUBSTITUTED IN HOSPITAL Last Taken:09/22/17 Time:7am This prescription has been renewed Start taking the following new medications: Nicotine (Nicotine Patch) 21 MG/24 HOUR PATCH.TD24 21 Milligram On the skin DAILY Qty = 30 No Refills Comments: Last Taken:09/22/17 Time:7am Methadone Hydrochloride (Methadone HCl) 10 MG TABLET 40 Milligram ORAL DAILY Qty = 30 No Refills Comments: Last Taken:09/22/17 Time:7am Sertraline HCl (Zoloft) 100 MG TABLET 1.5 Tablet ORAL DAILY Qty = 45 No Refills Comments: Last Taken:09/22/17 Time:7am Quetiapine Fumarate (Seroquel) 100 MG TABLET 1 Tablet ORAL SEE INSTRUCTIONS Qty = 135 No Refills Instructions: 1 Tab in AM, 1 tab Afternoon, and 3.5 tabs at bedtime Comments: Last Taken:09/22/17 Time:7am Studies Pending at Discharge none
--- NOTE | 2017-09-22 14:22 | SOCIAL WORKER PROG NOTE PSYCH ---
Social Work Progress Note Progress Note Pt has been accepted to [facility] in [place]. I called [facility] and they will pick him for transportation, they will call [phone] when they are close.
--- NOTE | 2017-09-23 09:06 | SOCIAL WORKER PROG NOTE PSYCH ---
Social Work Progress Note Faxed Referral(s) Referred To: [facility] Documents sent: Health Summary, W10 Faxed to: [facility] Fax #: [phone] Faxed by: Suman Corrales Date faxed: 09/22/17 Time Faxed: [phone]
--- NOTE | 2017-09-23 11:26 | SOCIAL WORKER PROG NOTE PSYCH ---
Social Work Progress Note Progress Note Determination Status: DISCHARGE COMPLETED Thank you. You have completed your discharge for this episode of care. Member Name Member ID Member Subscriber Name Subscriber ID ANEL CRUZ IV [id number] ANEL CRUZ IV [id number] Related Authorization # Related Client Authorization # Discharge # Discharge Date 601256-2-97 [id number] 09/22/2017 Level of Service Type of Service Level Of Care Type of Care IP - INPATIENT/HLOC P - MENTAL HEALTH I - INPATIENT CIP - INPATIENT HOSPITAL - INPATIENT HOSPITAL Provider Name & Address Provider ID Provider Alternate ID IVELISSE RODRIGUEZO [id number] [address] [place] [address] [phone]
== END 2017-09-22 19:35 | DRG 881 ==
LOC: ERH 21:23 → ERHI 09-17 09:16 → CP SOUTH 09-17 09:16 → EDBEDREQSVC 09-17 09:43 → ENTRNSPT 09-17 10:46 → EDTRNSPT 09-17 10:50 → EDTRNSPTSTS 09-17 10:50 → CP SOUTH 09-17 10:57 → CMPTRNSPT 09-17 11:04 → CP SOUTH 09-22 12:52
PROVIDERS: Internal Medicine
DX: F32.9 Major depressive disorder, single episode, unspecified (principal); F11.90 Opioid use, unspecified, uncomplicated
CPT/HCPCS: 80307; 81001; G0480; J3490